=== PATIENT | female | born 1985 | race Asian ===

== ENCOUNTER 2016-11-07 11:30 | Emergency (ER) | payer OTHER ==
[2016-11-07] MEDS ORDERED: KETOROLAC 60 MG/2 ML VIAL IM STA (12:37)
[2016-11-07] MEDS ORDERED: HYDROcod/ACETAM 5/325 MG TABLET PO STA (12:37)
[2016-11-07] MEDS ORDERED: KETOROLAC 60 MG/2 ML VIAL ONE (12:40)
[2016-11-07] MEDS ORDERED: HYDROcod/ACETAM 5/325 MG TABLET ONE (12:40)
[2016-11-07 12:50] LABS: BILIRUBIN,URINE NEGATIVE (NEGATIVE); PH,URINE 6.5 PH (5.0-7.5)
[2016-11-07 12:54] LABS: UA CHARGE (STRIP ONLY) YES; UR CULTURE IF IND NOT INDICATED
--- NOTE | 2016-11-07 13:14 | ED Physician Documentation ---
History of Present Illness - Stated complaint Stated Complaint: LOW BACK PAIN - Chief complaint Chief Complaint: Back Pain - History obtained from History obtained from: Patient - Additonal information Additional information: Patient is a 31-year-old female who is otherwise healthy. She does have a history of bipolar disorder but is not currently taking medications. From a surgical standpoint she has had a and hysterectomy as well as appendectomy. She is here with a complaint of back pain. The back pain is centrally located and does not radiate. It is worse with movement and better with rest. She has not had any fever or chills. There is no complaint of nausea vomiting, constipation, or diarrhea. She denies any recent or remote injury. There is no numbness tingling or weakness in her extremities. Review of systems: For pertinent positive and negatives in the review of systems please see history of present illness. Otherwise all other systems have been reviewed and are negative. Dragon disclaimer: Parts of this medical record were created using voice recognition technology. Because of the inherent limitations of this system occasional same sounding word substitutions do occur and persist despite proofreading. Please read the document for context. Review of Systems Ten Systems: 10 systems reviewed and negative Constitutional: denies: Fever, Chills, Myalgias Cardiac: denies: Chest pain / pressure Respiratory: denies: Dyspnea, Cough GI: denies: Abdominal Pain, Abdominal Swelling, Nausea, Vomiting, Constipation, Diarrhea : denies: Dysuria Musculoskeletal: reports: Back pain. 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, Hysterectomy - Present Medications Home Medications: Ambulatory Orders Medication Instructions Recorded Confirmed Ibuprofen 600 mg PO TID PRN #14 tablet 11/07/16 Tramadol HCl 50 mg PO Q8HR PRN #14 tablet 11/07/16 - Allergies Allergies/Adverse Reactions: Allergies Allergy/AdvReac Type Severity Reaction Status Date / Time morphine Allergy Respiratory Verified 11/07/16 11:41 - Social History Does the pt smoke?: No Smoking Status: Never smoker Does the pt drink ETOH?: Yes Does the pt have substance abuse?: No PD ED PE NORMAL - General General: Alert and oriented X 3, No acute distress, Well developed/nourished, Other (Well-appearing young female sitting stiffly on the bed) - HEENT HEENT: Atraumatic, PERRL - Cardiac Cardiac: RRR, No murmur - Respiratory Respiratory: No respiratory distress, Clear bilaterally - Abdomen Abdomen: Normal bowel sounds, Soft, Non tender, Non distended - Back Back: No CVA TTP, No spinal TTP, Other (Fairly diffuse muscular tenderness in the upper lumbar area approximately T1-T2 area) - Derm Derm: Normal color, Warm and dry - Extremities Extremities: No deformity, No tenderness to palpate, No calf tenderness / cord, Other - Neuro Neuro: Alert and oriented X 3, No motor deficit, No sensory deficit Results - Vitals Vitals: Vital Signs - 24 hr 11/07/16 11:35 Temperature 36.5 C Heart Rate 98 Respiratory 18 Rate Blood Pressure 112/73 O2 Saturation 96 Oxygen O2 Source Room air - Labs Labs: Laboratory Tests 11/07/16 12:26 Urine Color YELLOW Urine Clarity CLEAR Urine pH 6.5 Ur Specific [place] 1.010 Urine Protein NEGATIVE Urine Glucose (UA) NEGATIVE Urine Ketones NEGATIVE Urine Occult Blood TRACE-INTA Urine Nitrite NEGATIVE Urine Bilirubin NEGATIVE Urine Urobilinogen 0.2 (NORMAL) Ur Leukocyte Esterase NEGATIVE Ur Microscopic Review NOT INDICATED Urine Culture Comments NOT INDICATED PD MEDICAL DECISION MAKING - ED course Complexity details: reviewed old records, reviewed results, re-evaluated patient , considered differential, d/w patient ED course: Patient is a healthy young female who presents with atraumatic low back pain. There is no radiation of the pain. On examination she has mild diffuse tenderness in the paraspinal muscles without focality. Neurologic and strength testing in the lower extremities is normal. Urinalysis is negative and she has had hysterectomy. She was given Toradol and Vicodin here and feels better. At this point in time will discharge at home with appropriate follow-up. Disposition: To home Clinical impression: 1. Lumbar back pain and strain-suspect muscular etiology Departure - Departure Disposition: Home, Self Care Clinical Impression: Lumbar back pain Condition: Good Instructions: ED Back Care Tips, ED Spasm Back No Trauma, ED Sprain Strain Lumbar Follow-Up: [facility] [Provider Group] Prescriptions: Tramadol HCl 50 mg PO Q8HR PRN #14 tablet PRN Reason: Pain Ibuprofen 600 mg PO TID PRN #14 tablet PRN Reason: Pain
[2016-11-07 13:40] VITALS: BP 121/71
== END 2016-11-07 13:35 | disposition home or self-care (01) ==
LOC: ED 11:30
DX: M54.5 Low back pain (principal)
CPT/HCPCS: 81003; 96372; 99283; A9270; 81001; 81025; 87086

== ENCOUNTER 2020-04-13 14:13 | Emergency (ER) | payer OTHER ==
--- NOTE | 2020-04-13 15:59 | ED Physician Documentation ---
History of Present Illness - Stated complaint Stated Complaint: SORE THROAT/COUGHING - Chief complaint Chief Complaint: Resp - History obtained from History obtained from: Patient - History of Present Illness Timing: Prior to arrival - Additonal information Additional information: 34-year-old female presents to the emergency department with 4 to 5 days of fatigue, chills, cough and shortness of breath. She also has a sore throat and is concerned she could have strep. She recently moved to [facility] 3 weeks ago from [place] and is staying with her family here. She does have a history of dystonia. She states that this causes her constant muscle pain but this feels different. She denies knowing that she has fevers but endorses chills especially at night. No vomiting or abdominal pain. No dysuria urgency or frequency. Review of Systems Constitutional: reports: Chills, Myalgias, Fatigue. denies: Fever Eyes: reports: Reviewed and negative Ears: reports: Reviewed and negative Nose: reports: Reviewed and negative Throat: reports: Sore throat. denies: Swollen tonsils, Swallowed foreign body Cardiac: denies: Chest pain / pressure, Palpitations Respiratory: reports: Dyspnea, Cough. 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 - Present Medications Home Medications: Ambulatory Orders Medication Instructions Recorded Confirmed Ibuprofen 600 mg PO TID PRN #14 tablet 11/07/16 04/13/20 Acyclovir [Zovirax] 1 tab PO PRN PRN 04/13/20 04/13/20 Doxepin [SINEquan] 50 mg PO DAILY 04/13/20 04/13/20 Gabapentin [Neurontin] 1 tab PO TID 04/13/20 04/13/20 diazePAM [Valium] 1 tab PO TID 04/13/20 04/13/20 hydrOXYzine HCL [Hydroxyzine HCl] 1 tab PO TID PRN 04/13/20 04/13/20 methIMAzole [Methimazole] 5 mg PO DAILY 04/13/20 04/13/20 - Allergies Allergies/Adverse Reactions: Allergies Allergy/AdvReac Type Severity Reaction Status Date / Time morphine Allergy Respiratory Verified 04/13/20 14:41 - Social History Does the pt smoke?: No Smoking Status: Never smoker Does the pt drink ETOH?: Yes Does the pt have substance abuse?: No PD ED PE EXPANDED - General General: Alert, No acute distress, Well developed/nourished - HEENT HEENT: PERRL, EOMI, Moist mucous membranes, Pharyngeal erythema (Minor posterior oropharynx erythema without tonsillar exudate or tonsillar swelling. Uvula is midline. No soft palate swelling or asymmetry.) - Neck Neck: Supple w/out meningeal sx, No tenderness. No: Adenopathy - Cardiac Cardiac: Regular Rate, Regular Rhythm, Regularly irregular, Radial strong equal, Pedal strong equal, Cap refill < 2 sec - Respiratory Respiratory: Clear to ausultation dom. No: Distress, Labored, Gasping, Accessory mm use, Retractions - Abdomen Abdomen: Normal Bowel sounds. No: Tender to palpation - Extremities Extremities: Normal Results - Vitals Vitals: Vital Signs - 24 hr 04/13/20 14:35 Temperature 36.5 C Heart Rate 89 Respiratory 16 Rate Blood Pressure 121/90 H O2 Saturation 100 Oxygen O2 Source Room air PD MEDICAL DECISION MAKING - ED course ED course: 34-year-old female presents emergency department with multiple days of fatigue body aches chills and sore throat. A rapid respiratory PCR panel is pending. She has unremarkable cardiopulmonary auscultation and vitals are within normal limits without hypoxia. Imaging deferred today. Patient will be sent home with a recommendation to remain quarantine until the Covid results are known. She is to continue routine over the counter analgesics with Tylenol or ibuprofen as well as hydration. Departure - Departure Disposition: 01 Home, Self Care Clinical Impression: Viral illness, Sore throat Condition: Stable Record reviewed to determine appropriate education?: Yes Instructions: ED Viral Syndrome Ch Comments: You have a Covid test pending. You need to self quarantine until the result is done and negative. Do not leave your house. Do not get near anybody. The results should be done in 48 to 72 hours. We will call with a positive result, the fastest way to get a negative result for confirmation though is to go to the hospital website at [email or web address], click on the my [email or web address] tab and sign up for the patient portal. If any friends or family get sick and would like to have a Covid test done, but do not have signs or symptoms that would necessitate being hospitalized, we encourage testing through our coronavirus swabbing station, call [phone] to schedule an appointment. We will only notify you if the testing is positive. I do recommend that you continue to take Tylenol or ibuprofen for body aches. Stay well-hydrated drinking fluids frequently and get plenty of rest. Return to the emergency department if you have fevers, difficulty breathing suddenly severe abdominal or chest pain.
[2020-04-13 16:49] LABS: C. PNEUMONIAE- RESP PCR PANEL NOT DETECTED
[2020-04-13 16:54] VITALS: BP 119/79
== END 2020-04-13 16:53 | disposition home or self-care (01) ==
LOC: ED 14:13
DX: B34.9 Viral infection, unspecified (principal); J02.9 Acute pharyngitis, unspecified; Z20.828 Contact with and (suspected) exposure to other viral communicable diseases
CPT/HCPCS: 0202U; 99282; 99283

== ENCOUNTER 2020-05-24 08:00 | Outpatient (CLI) | payer OTHER ==
[2020-05-24 11:52] LABS: BASOPHILS # (AUTO) 0.1 10^3/uL (0.0-0.1); BASOPHILS % (AUTO) 0.6 %; EOSINOPHILS # (AUTO) 0.3 10^3/uL (0.0-0.7); EOSINOPHILS % (AUTO) 2.9 %; HGB - HEMOGLOBIN 14.8 g/dL (12.0-16.0); LYMPHOCYTES # (AUTO) 3.1 10^3/uL (1.5-3.5); LYMPHOCYTES % (AUTO) 31.9 %; MEAN CORPUSCULAR HEMOGLOBIN 30.1 pg (27.0-31.0); MEAN CORPUSCULAR HGB CONC 33.3 g/dL (32.0-36.0); MEAN CORPUSCULAR VOLUME 90.4 fL (81.0-99.0); MEAN PLATELET VOLUME 10.7 fL (7.9-10.8); MONOCYTES # (AUTO) 0.7 10^3/uL (0.0-1.0); MONOCYTES % (AUTO) 7.3 %; NEUTROPHILS # (AUTO) 5.5 10^3/uL (1.5-6.6); NEUTROPHILS % (AUTO) 56.8 %; PLT - PLATELET COUNT 242 10^3/uL (130-450); RED BLOOD COUNT 4.92 10^6/uL (4.20-5.40); RED CELL DISTRIBUTION WIDTH 12.5 % (12.0-15.0); WHITE BLOOD COUNT 9.7 x10^3/uL (4.8-10.8)
[2020-05-24 12:00] LABS: ALBUMIN 4.6 g/dL (3.2-5.5); ALBUMIN/GLOBULIN RATIO 1.4 (1.0-2.2); ALKALINE PHOSPHATASE 68 IU/L (42-121); ALT ALANINE AMINOTRANSFERASE 41 IU/L (10-60); AST ASPARTATE AMINOTRANSFERASE 41 IU/L (10-42); BILIRUBIN,TOTAL 0.5 mg/dL (0.2-1.0); BUN - BLOOD UREA NITROGEN 13 mg/dL (6-20); CALCIUM 9.9 mg/dL (8.5-10.3); CARBON DIOXIDE - CO2 28 mmol/L (21-32); CHLORIDE 100 mmol/L (101-111); CHOL/HDL RATIO 3.1 (<4.4); CHOLESTEROL 247 mg/dL; CREATININE 0.8 mg/dL (0.4-1.0); GLUCOSE 91 mg/dL (70-100); HDL CHOLESTEROL 80 mg/dL; LDL CHOLESTEROL,CALCULATED 147 mg/dL; LDL/HDL RATIO 1.8 (<4.4); VLDL CHOLESTEROL 20 mg/dL
[2020-05-24 12:07] LABS: T4 (THYROXINE) 8.29 ug/dL (6.09-12.23)
[2020-05-24 12:10] LABS: THYROID STIMULATING HORMONE 0.7 uIU/mL (0.34-5.60)
[2020-05-24 12:17] LABS: TOTAL T3 1.66 ng/mL (0.87-1.78)
== END 2020-05-24 23:59 | disposition home or self-care (01) ==
LOC: LAB.WCP 08:00
PROVIDERS: ATTEND Registered Nurse
DX: G43.909 Migraine, unspecified, not intractable, without status migrainosus (principal); E06.9 Thyroiditis, unspecified; G24.3 Spasmodic torticollis; F32.9 Major depressive disorder, single episode, unspecified; F41.9 Anxiety disorder, unspecified
CPT/HCPCS: 36415; 80053; 80061; 83721; 84436; 84443; 84480; 85025

== ENCOUNTER 2020-06-06 08:00 | Outpatient (CLI) | payer OTHER | END 2020-06-06 23:59 | disposition home or self-care (01) | LOC: LAB.N 08:00 | PROVIDERS: ATTEND Family Medicine | DX: J06.9 Acute upper respiratory infection, unspecified (principal); Z20.822 Contact with and (suspected) exposure to COVID-19 | CPT/HCPCS: 87070; 87275; 87276 ==

== ENCOUNTER 2020-08-08 12:28 | Outpatient (CLI) | payer OTHER | END 2020-08-08 12:29 | disposition critical access hospital (66) | LOC: EMS 12:28 | DX: R10.30 Lower abdominal pain, unspecified (principal) | CPT/HCPCS: A0425; A0427 ==

== ENCOUNTER 2020-08-08 12:45 | Emergency (ER) | payer OTHER ==
--- NOTE | 2020-08-08 12:56 | ED Physician Documentation ---
PD HPI ABD PAIN - Stated complaint Stated Complaint: ABD PX - Chief complaint Chief Complaint: Abd Pain - History obtained from History obtained from: Patient, EMS - History of Present Illness Timing - onset: How many hours ago (The patient states she had onset of lower abdominal crampy pain about an hour prior to presentation. It increased rather quickly over about 30 minutes. She did try having a bowel movement but did not have anything out. She did not feel an urgency per se but thought it might help. pain lower abd.) Timing - details: Abrupt onset (onset to severe over about 30 minutes.) Quality: Cramping, Aching, Pain. No: Sharp Location: RLQ, Suprapubic, LLQ Radiation: No: Chest, Lower back Improved by: No: Laying still Worsened by: Moving, Palpation, Other (stretched out feels worse; bumps in road enroute hurt more.). No: Breathing Associated symptoms: Nausea. No: Fever, Vomiting, Diarrhea (Diarrhea per se but states she had had soft bowel movements over the last 3 or 4 days without any noted blood nor mucus.), Constipation, Melena, Hematochezia, Dysuria, Loss of appetite Similar symptoms before: Has not had sx before Recently seen: Not recently seen Review of Systems Constitutional: denies: Fever, Chills, Myalgias Nose: denies: Rhinorrhea / runny nose, Congestion Throat: denies: Sore throat Cardiac: denies: Chest pain / pressure Respiratory: denies: Dyspnea, Cough GI: reports: Abdominal Pain (just onset the past hour.), Nausea. denies: Vomiting, Constipation, Diarrhea : reports: Hysterectomy. 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 - Present Medications Home Medications: Ambulatory Orders Medication Instructions Recorded Confirmed Doxepin [SINEquan] 50 mg PO DAILY 04/13/20 08/08/20 Gabapentin [Neurontin] 1 tab PO TID 04/13/20 08/08/20 diazePAM [Valium] 1 tab PO TID 04/13/20 08/08/20 hydrOXYzine HCL [Hydroxyzine HCl] 1 tab PO TID PRN 04/13/20 04/13/20 methIMAzole [Methimazole] 5 mg PO DAILY 04/13/20 08/08/20 DULoxetine [Cymbalta] 20 mg PO DAILY 08/08/20 08/08/20 Naproxen [EC-Naproxen] 500 mg PO BID #20 08/08/20 Ondansetron Odt [Zofran] 4 mg TL Q6H PRN #10 tablet 08/08/20 - Allergies Allergies/Adverse Reactions: Allergies Allergy/AdvReac Type Severity Reaction Status Date / Time morphine Allergy Respiratory Verified 08/08/20 12:54 - Social History Does the pt smoke?: No Smoking Status: Never smoker Does the pt drink ETOH?: Yes Does the pt have substance abuse?: No PD ED PE NORMAL - Vitals Vital signs reviewed: Yes - General General: Alert and oriented X 3, Well developed/nourished, Other (Appears significantly uncomfortable with her knees drawn up and holding her lower abdomen.) - HEENT HEENT: Pharynx benign - Neck Neck: Supple, no meningeal sign, No adenopathy - Cardiac Cardiac: RRR, No murmur - Respiratory Respiratory: Clear bilaterally - Abdomen Abdomen: Soft, No organomegaly, Other (Markedly tender to percussion and palpation in the suprapubic and lower abdomen both left and right. Upper abdomen is nontender. There is no referred tenderness from the upper abdomen to the lower. No CVA tenderness.). No: Normal bowel sounds (Creased bowel sounds noted lower.) - Female Female : Deferred - Rectal Rectal: Deferred - Back Back: No CVA TTP - Derm Derm: Normal color, Warm and dry - Extremities Extremities: Normal ROM s pain, No edema, No calf tenderness / cord - Neuro Neuro: Alert and oriented X 3, No motor deficit, Normal speech Eye Opening: Spontaneous Motor: Obeys Commands Verbal: Oriented GCS Score: 15 Results - Vitals Vitals: Vital Signs - 24 hr 08/08/20 08/08/20 08/08/20 12:49 12:54 15:11 Temperature 36.6 C Heart Rate 91 92 97 Respiratory 14 16 23 Rate Blood Pressure 122/86 H 119/92 H 129/62 O2 Saturation 98 97 98 08/08/20 08/08/20 17:01 19:02 Temperature 36.4 C L Heart Rate 79 83 Respiratory 18 16 Rate Blood Pressure 108/62 126/83 H O2 Saturation 99 100 Oxygen O2 Source Room air - Labs Labs: Laboratory Tests 08/08/20 08/08/20 08/08/20 13:37 13:37 13:40 WBC 9.2 RBC 4.68 Hgb 13.9 Hct 41.8 MCV 89.3 MCH 29.7 MCHC 33.3 RDW 12.3 Plt Count 214 MPV 10.3 Neut # (Auto) 5.0 Lymph # (Auto) 3.4 [place] # (Auto) 0.5 Eos # (Auto) 0.2 Baso # (Auto) 0.1 Absolute Nucleated RBC 0.00 Nucleated RBC % 0.0 Sodium 137 Potassium 3.9 Chloride 104 Carbon Dioxide 22 Anion Gap 11.0 BUN 9 Creatinine 0.8 Estimated GFR (MDRD) 82 L Glucose 99 Calcium 9.6 Total Bilirubin 0.4 AST 31 ALT 24 Alkaline Phosphatase 60 Total Protein 7.9 Albumin 4.8 Globulin 3.1 Albumin/Globulin Ratio 1.5 Lipase 35 Urine Color YELLOW Urine Clarity CLEAR Urine pH 6.5 Ur Specific [place] 1.015 Urine Protein NEGATIVE Urine Glucose (UA) NEGATIVE Urine Ketones NEGATIVE Urine Occult Blood NEGATIVE Urine Nitrite NEGATIVE Urine Bilirubin NEGATIVE Urine Urobilinogen 0.2 (NORMAL) Ur Leukocyte Esterase NEGATIVE Ur Microscopic Review NOT INDICATED Urine Culture Comments NOT INDICATED - Rads (name of study) abd/pelvic CT Radiology: Prelim report reviewed (right ovarian cyst with trace free fluid. Else negative for acute process. ), See rad report pelvic U/S Radiology: Prelim report reviewed (normal flow to both ovaries. 2 cm cyst right ovary hemorrhagic. No free fluid. ) PD MEDICAL DECISION MAKING - ED course Complexity details: re-evaluated patient (persistent moderate pain. She got incredible itchiness with Dilaudid. She had gotten fentanyl enroute and it made her feel lightheaded/nausea. She did not want repeat dose. Suggested Keatime and will try it, but it just made her feel dizzy and no pain relief. I do not have other options right now.), considered differential (Abrupt onset and worsening of lower abdominal pain. Post hysterectomy but still has ovaries. Consider ovarian rupture of a cyst, torsion, lower bowel obstruction given prior surgeries, kidney stone though not really flank pain. Also acute perforation of diverticula or such.), d/w patient ED course: Hard to make pain well improved due to side effects of many meds. Offered subsequently IV lidocaine (works on various pain issues, particularly kidney stones), but she said she was "done trying things and just wants to go home." Departure - Departure Disposition: Home, Self Care Clinical Impression: Lower abdominal pain, Hemorrhagic ovarian cyst Condition: Stable Record reviewed to determine appropriate education?: Yes Instructions: ED Cyst Ovarian Follow-Up: Analia Sequeira ARNP [Primary Care Provider] - Prescriptions: Naproxen [EC-Naproxen] 500 mg PO BID #20 Ondansetron Odt [Zofran] 4 mg TL Q6H PRN #10 tablet PRN Reason: Nausea / Vomiting Comments: Your pain seems to be coming from bleeding within a ovarian cyst on the right. There is no signs of internal bleeding freely within the pelvis. I would anticipate improvement in the pain over the next couple of days with anti- inflammatories and adding Tylenol if needed. Other medications seem to cause you itching so we will have to stay with anti- inflammatories and Tylenol. Add ondansetron if needed for nausea. Recheck if not improving well over the next day or 2 return if worsening. Discharge Date/Time: 08/08/20 19:34
--- OUTSIDE RECORDS SUMMARY | 2020-08-08 13:20 | EXTERNAL MEDICAL SUMMARY RPT | Continuity of Care Document ---
:1985 Demographics Phone Unavailable Preferred Language Unknown Marital Status Unknown Shinto Affiliation Unknown Race Unknown Ethnic Group Unknown Author Organization [facility] Address [address] [phone] Phone Social History date description facility [phone]
[2020-08-08] MEDS ORDERED: ONDANSETRON 4 MG/2 ML VIAL IVP STA (13:23)
[2020-08-08] MEDS ORDERED: KETOROLAC 15 MG/ML VIAL IVP STA (13:23)
[2020-08-08] MEDS ORDERED: HYDROmorphone 1 MG/ML CARPUJECT IVP STA (13:23)
[2020-08-08] MEDS ORDERED: diphenhydrAMINE INJ 50 MG/ML VIAL IVP STA ×4 (13:24→15:24)
[2020-08-08] MEDS ORDERED: SODIUM CHLORIDE 0.9% 1,000 ML IV STA (13:25)
[2020-08-08] MEDS ORDERED: IOPAMIDOL-300 100 ML VIAL ONE (13:34)
[2020-08-08 13:48] LABS: BASOPHILS # (AUTO) 0.1 10^3/uL (0.0-0.1); BASOPHILS % (AUTO) 0.5 %; EOSINOPHILS # (AUTO) 0.2 10^3/uL (0.0-0.7); EOSINOPHILS % (AUTO) 2.2 %; HCT - HEMATOCRIT 41.8 % (37.0-47.0); HGB - HEMOGLOBIN 13.9 g/dL (12.0-16.0); LYMPHOCYTES # (AUTO) 3.4 10^3/uL (1.5-3.5); LYMPHOCYTES % (AUTO) 37.3 %; MEAN CORPUSCULAR HEMOGLOBIN 29.7 pg (27.0-31.0); MEAN CORPUSCULAR HGB CONC 33.3 g/dL (32.0-36.0); MEAN CORPUSCULAR VOLUME 89.3 fL (81.0-99.0); MEAN PLATELET VOLUME 10.3 fL (7.9-10.8); MONOCYTES # (AUTO) 0.5 10^3/uL (0.0-1.0); MONOCYTES % (AUTO) 5.7 %; PLT - PLATELET COUNT 214 10^3/uL (130-450); RED BLOOD COUNT 4.68 10^6/uL (4.20-5.40); RED CELL DISTRIBUTION WIDTH 12.3 % (12.0-15.0); WHITE BLOOD COUNT 9.2 x10^3/uL (4.8-10.8)
[2020-08-08 13:54] LABS: BILIRUBIN,URINE NEGATIVE (NEGATIVE); GLUCOSE, URINE (UA) NEGATIVE (NEGATIVE); KETONES,URINE (UA) NEGATIVE (NEGATIVE); LEUKOCYTE ESTERASE, URINE NEGATIVE (NEGATIVE); NITRITE,URINE NEGATIVE (NEGATIVE); OCCULT BLOOD,URINE NEGATIVE (NEGATIVE); PH,URINE 6.5 PH (5.0-7.5); PROTEIN,URINE NEGATIVE (NEGATIVE); UROBILINOGEN,URINE 0.2 (NORMAL) E.U./dL (NORMAL)
[2020-08-08 13:58] LABS: CLARITY,URINE CLEAR (CLEAR)
[2020-08-08 14:03] LABS: ALBUMIN 4.8 g/dL (3.2-5.5); ALBUMIN/GLOBULIN RATIO 1.5 (1.0-2.2); BILIRUBIN,TOTAL 0.4 mg/dL (0.2-1.0); CALCIUM 9.6 mg/dL (8.5-10.3); CREATININE 0.8 mg/dL (0.4-1.0); POTASSIUM 3.9 mmol/L (3.5-5.0); TOTAL PROTEIN 7.9 g/dL (6.7-8.2)
[2020-08-08] MEDS ORDERED: IOPAMIDOL-300 100 ML VIAL IVP ONE (14:40)
--- NOTE | 2020-08-08 15:00 | CT Report ---
PROCEDURE: Abdomen/Pelvis W INDICATIONS: LLQ Abdominal pain, diverticulitis suspected CONTRAST: IV CONTRAST: Isovue 300 ml: 100 PO CONTRAST: *NO PO CONTRAST TECHNIQUE: After the administration of intravenous contrast, 5 mm thick sections acquired from the diaphragms to the symphysis. 5 mm thick coronal and sagittal reformats were acquired. For radiation dose reducti on, the following was used: automated exposure control, adjustment of mA and/or kV according to hans ent size. COMPARISON: None. FINDINGS: Image quality: Excellent. ABDOMEN: Lung bases: Lung bases are clear. Heart size is normal. Solid organs: Liver and spleen are normal in size and enhancement. Gallbladder is unremarkable. Bi liary system is non dilated. Pancreas enhances normally. No adrenal nodules. Kidneys demonstrate n ormal size and enhancement, without hydronephrosis. Peritoneum and bowel: Bowel loops demonstrate normal wall thickness and caliber. No free fluid or a ir. No evidence of acute diverticulitis. Remote appendectomy. Nodes and vessels: No retroperitoneal or mesenteric adenopathy by size criteria. Aorta and inferior vena cava are normal in size. Miscellaneous: No ventral hernias. PELVIS: Genitourinary: Bladder wall thickness is normal. Miscellaneous: No inguinal hernias or adenopathy. Collapsed right ovarian cyst. Uterus is surgically absent. Bones: No suspicious bony lesions. No vertebral body compression fractures. IMPRESSION: 1. Collapsed right ovarian cyst. 2. No evidence of acute diverticulitis. 3. No findings which explain acute left lower quadrant abdominal pain. Reviewed by: Daniel Carmichael MD on 08/08/2020 2:59 PM PDT Approved by: Daniel Carmichael MD on 08/08/2020 2:59 PM PDT Station ID: [id number]
[2020-08-08] MEDS ORDERED: CETIRIZINE 10 MG TABLET PO STA (15:25)
[2020-08-08] MEDS ORDERED: ACETAMINOPHEN 1,000 MG/100 ML 100 ML IV ONE (15:32)
[2020-08-08] MEDS ORDERED: fentaNYL 100 MCG/2 ML VIAL IVP STA (17:11)
--- NOTE | 2020-08-08 17:14 | Ultrasound Report ---
PROCEDURE: Pelvic w/Transvag+Doppler Ltd INDICATIONS: pelvic pain; ? collapsing cyst on CT TECHNIQUE: Real-time scanning was performed of the pelvic organs, with image documentation. Additional endovagi nal scanning was necessary due to incomplete visualization of the adnexal and endometrial structures by transabdominal scanning. COMPARISON: CT of abdomen and pelvis from the same day. FINDINGS: No pathologic free abdominal or pelvic fluid. Uterus: Uterus is surgically absent. No gross abnormality is seen in the vaginal cuff region. Ovaries: Right ovary measures 3.1 x 2.8 x 2.7 cm in size with a volume of 12.0 mL. Complex cyst ness ures 1.9 x 2.1 x 2 cm in size is seen in right ovary without internal vascularity. 1 cm simple cyst i s seen in right ovary. Left ovary measures 2.6 x 0.9 x 1.9 cm in size with a volume of 2.3 mL. Less than 12 follicles are se en in left ovary. No solid-appearing ovarian lesion. Normal arterial and venous flow is seen in bilat eral ovaries on color Doppler images. IMPRESSION: 1. No evidence of ovarian torsion. No gross solid-appearing ovarian lesion. 2. 1.9 x 2.1 x 2 cm complex/hemorrhagic cyst seen in right ovary which was also noted on CT study. No rmal-appearing left ovary. 3. Prior hysterectomy with normal-appearing vaginal cuff region. Reviewed by: Santiago Armstrong MD on 08/08/2020 4:13 PM AKCHRISTOPHER Approved by: Santiago Armstrong MD on 08/08/2020 4:13 PM AKDT Station ID: [id number]
[2020-08-08] MEDS ORDERED: oxyCODONE 5 MG TABLET PO STA (17:22)
[2020-08-08] MEDS ORDERED: IBUPROFEN 600 MG TABLET PO STA (17:22)
[2020-08-08] MEDS ORDERED: KETAMINE 25 MG in SODIUM CHLORIDE 0.9% 100ML 100 ML IV STA (17:45)
[2020-08-08 19:03] VITALS: BP 126/83
== END 2020-08-08 19:34 | disposition home or self-care (01) ==
LOC: EDUNIT# → ED 12:45
DX: N83.201 Unspecified ovarian cyst, right side (principal); R42 Dizziness and giddiness; R11.0 Nausea; L29.9 Pruritus, unspecified; T40.2X5A Adverse effect of other opioids, initial encounter; T40.415A Adverse effect of fentanyl or fentanyl analogs, initial encounter
CPT/HCPCS: 36415; 74177; 76830; 76856; 80053; 81003; 83690; 85025; 93976; 96365; 96366; 96367; 96375; 96376; 99284; A9270; J0131; J1170; J1200; Q9967; 81001; 87086

== ENCOUNTER 2020-09-19 12:35 | Emergency (ER) | payer OTHER ==
--- OUTSIDE RECORDS SUMMARY | 2020-09-19 12:39 | EXTERNAL MEDICAL SUMMARY RPT | Continuity of Care Document ---
:1985 Demographics Phone Unavailable Preferred Language Unknown Marital Status Unknown Yazidi Affiliation Unknown Race Unknown Ethnic Group Unknown Author Organization [facility] Address [address] [phone] Phone Problems date description facility [id number] chest pain / sob [facility] [id number] Shortness of Breath [facility]
[2020-09-19 13:16] LABS: BASOPHILS % (AUTO) 0.3 %; EOSINOPHILS % (AUTO) 0.1 %; HCT - HEMATOCRIT 43.2 % (37.0-47.0); HGB - HEMOGLOBIN 14.8 g/dL (12.0-16.0); LYMPHOCYTES # (AUTO) 1.8 10^3/uL (1.5-3.5); MEAN CORPUSCULAR HEMOGLOBIN 30.6 pg (27.0-31.0); MEAN CORPUSCULAR HGB CONC 34.3 g/dL (32.0-36.0); MEAN CORPUSCULAR VOLUME 89.3 fL (81.0-99.0); MEAN PLATELET VOLUME 10.3 fL (7.9-10.8); MONOCYTES # (AUTO) 0.6 10^3/uL (0.0-1.0); MONOCYTES % (AUTO) 5.5 %; NEUTROPHILS # (AUTO) 8.3 10^3/uL (1.5-6.6); NEUTROPHILS % (AUTO) 76.7 %; PLT - PLATELET COUNT 251 10^3/uL (130-450); RED BLOOD COUNT 4.84 10^6/uL (4.20-5.40); RED CELL DISTRIBUTION WIDTH 11.9 % (12.0-15.0); WHITE BLOOD COUNT 10.8 x10^3/uL (4.8-10.8)
[2020-09-19 13:29] LABS: ALBUMIN 5.1 g/dL (3.2-5.5); ALBUMIN/GLOBULIN RATIO 1.5 (1.0-2.2); BILIRUBIN,TOTAL 0.9 mg/dL (0.2-1.0); CALCIUM 9.4 mg/dL (8.5-10.3); CREATININE 0.7 mg/dL (0.4-1.0); POTASSIUM 3.7 mmol/L (3.5-5.0); TOTAL PROTEIN 8.4 g/dL (6.7-8.2)
--- OUTSIDE RECORDS SUMMARY | 2020-09-19 13:43 | EXTERNAL MEDICAL SUMMARY RPT | Continuity of Care Document ---
:1985 Demographics Phone Unavailable Preferred Language Unknown Marital Status Unknown Judaism Affiliation Unknown Race Unknown Ethnic Group Unknown Author Organization [facility] Address [address] [phone] Phone Problems date description facility [id number] chest pain / sob [facility] [id number] Shortness of Breath [facility]
[2020-09-19 14:31] LABS: BILIRUBIN,URINE NEGATIVE (NEGATIVE); GLUCOSE, URINE (UA) NEGATIVE (NEGATIVE); KETONES,URINE (UA) >=80 mg/dL (NEGATIVE); LEUKOCYTE ESTERASE, URINE NEGATIVE (NEGATIVE); NITRITE,URINE NEGATIVE (NEGATIVE); OCCULT BLOOD,URINE TRACE-LYSE (NEGATIVE); PROTEIN,URINE NEGATIVE (NEGATIVE); UROBILINOGEN,URINE 0.2 (NORMAL) E.U./dL (NORMAL)
[2020-09-19 14:32] LABS: CLARITY,URINE CLEAR (CLEAR); HCG UR QUAL NEGATIVE
[2020-09-19] MEDS ORDERED: PANTOPRAZOLE 40 MG VIAL IVP STA (14:40)
[2020-09-19] MEDS ORDERED: PROCHLORPERAZINE 10 MG/2 ML VIAL IVP STA (14:40)
--- NOTE | 2020-09-19 14:43 | ED Physician Documentation ---
History of Present Illness - Stated complaint Stated Complaint: VOMITING,WEAKNESS - Chief complaint Chief Complaint: Abd Pain - Additonal information Additional information: 35-year-old female presents to the emergency department for evaluation of 2 days uncontrolled vomiting and diarrhea. She reports she has been unable to keep anything down and as such now has significant epigastric pain. She feels weak and dehydrated. No fevers. no melena or hematochezia. no hemataemsis. Patient denies sick contacts or similar illness and others at home however she did recently returned from a trip to [place]. Past medical history most significant for hyperthyroidism as well as dystonia. Past medical history includes hysterectomy secondary to fibroids, previous appendectomy. Medications: Methocarbamol, Valium, sumatriptan, acyclovir, gabapentin, methimazole, duloxetine. Review of Systems Constitutional: denies: Fever, Chills Eyes: reports: Reviewed and negative Nose: reports: Reviewed and negative Throat: reports: Reviewed and negative Cardiac: reports: Reviewed and negative Respiratory: reports: Reviewed and negative GI: reports: Abdominal Pain, Nausea, Vomiting. 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, Hysterectomy - Present Medications Home Medications: Ambulatory Orders Medication Instructions Recorded Confirmed diazePAM [Valium] 1 tab PO TID 04/13/20 09/19/20 methIMAzole [Methimazole] 5 mg PO DAILY 04/13/20 09/19/20 DULoxetine [Cymbalta] 20 mg PO DAILY 08/08/20 09/19/20 Acyclovir 800 mg PO DAILY PRN 09/19/20 09/19/20 Gabapentin [Neurontin] 300 mg PO TID 09/19/20 09/19/20 Ondansetron Odt [Zofran] 4 mg TL Q6H PRN #10 tablet 09/19/20 Sumatriptan Succinate [Imitrex] 100 mg PO DAILY PRN 09/19/20 09/19/20 methocarbamoL [Methocarbamol] 500 mg PO TID 09/19/20 09/19/20 - Allergies Allergies/Adverse Reactions: Allergies Allergy/AdvReac Type Severity Reaction Status Date / Time morphine Allergy Respiratory Verified 09/19/20 12:52 - Social History Does the pt smoke?: No Smoking Status: Never smoker Does the pt drink ETOH?: Yes Does the pt have substance abuse?: No - Immunizations Immunizations are current?: Yes PD ED PE EXPANDED - General General: Alert, In Pain - Cardiac Cardiac: Regular Rate, Radial strong equal, Pedal strong equal, Cap refill < 2 sec - Respiratory Respiratory: Clear to ausultation dom. No: Distress, Labored - Abdomen Abdomen: Normal Bowel sounds, Tender to palpation, Epigastric (Epigastric tenderness without guarding or rebound. Negative McBurney's. Negative Richardson's.) - Derm Derm: Normal color, Warm and dry. No: Rash, Petecchiae, Purpura - Extremities Extremities: Normal. No: Deformity, Tenderness - Neuro Neuro: Alert and Oriented X 3, CNII-XII intact - GCS Eye Opening: Spontaneous Motor: Obeys Commands Verbal: Oriented Total: 15 Results - Vitals Vitals: Vital Signs - 24 hr 09/19/20 09/19/20 09/19/20 12:52 14:28 16:11 Temperature 36.8 C 37.4 C Heart Rate 77 68 85 Respiratory 16 16 18 Rate Blood Pressure 122/84 H 129/95 H 115/99 H O2 Saturation 99 97 99 Oxygen O2 Source Room air - Labs Labs: Laboratory Tests 09/19/20 09/19/20 09/19/20 13:10 13:10 13:10 WBC 10.8 RBC 4.84 Hgb 14.8 Hct 43.2 MCV 89.3 MCH 30.6 MCHC 34.3 RDW 11.9 L Plt Count 251 MPV 10.3 Neut # (Auto) 8.3 H Lymph # (Auto) 1.8 [place] # (Auto) 0.6 Eos # (Auto) 0.0 Baso # (Auto) 0.0 Absolute Nucleated RBC 0.00 Nucleated RBC % 0.0 Sodium 136 Potassium 3.7 Chloride 100 L Carbon Dioxide 26 Anion Gap 10.0 BUN 9 Creatinine 0.7 Estimated GFR (MDRD) 95 Glucose 129 H Calcium 9.4 Total Bilirubin 0.9 AST 23 ALT 17 Alkaline Phosphatase 62 Total Protein 8.4 H Albumin 5.1 Globulin 3.3 Albumin/Globulin Ratio 1.5 Lipase 32 TSH 0.26 L Urine Color Urine Clarity Urine pH Ur Specific [place] Urine Protein Urine Glucose (UA) Urine Ketones Urine Occult Blood Urine Nitrite Urine Bilirubin Urine Urobilinogen Ur Leukocyte Esterase Ur Microscopic Review Urine Culture Comments Urine HCG, Qual 09/19/20 14:16 WBC RBC Hgb Hct MCV MCH MCHC RDW Plt Count MPV Neut # (Auto) Lymph # (Auto) [place] # (Auto) Eos # (Auto) Baso # (Auto) Absolute Nucleated RBC Nucleated RBC % Sodium Potassium Chloride Carbon Dioxide Anion Gap BUN Creatinine Estimated GFR (MDRD) Glucose Calcium Total Bilirubin AST ALT Alkaline Phosphatase Total Protein Albumin Globulin Albumin/Globulin Ratio Lipase TSH Urine Color YELLOW Urine Clarity CLEAR Urine pH 6.0 Ur Specific [place] >=1.030 H Urine Protein NEGATIVE Urine Glucose (UA) NEGATIVE Urine Ketones >=80 H Urine Occult Blood TRACE-LYSE Urine Nitrite NEGATIVE Urine Bilirubin NEGATIVE Urine Urobilinogen 0.2 (NORMAL) Ur Leukocyte Esterase NEGATIVE Ur Microscopic Review NOT INDICATED Urine Culture Comments NOT INDICATED Urine HCG, Qual NEGATIVE - Rads (name of study) CT abd Radiology: Final report received (No definite acute abdominal abnormality. Specifically no evidence of bowel obstruction.) PD MEDICAL DECISION MAKING - ED course Complexity details: reviewed results, re-evaluated patient, d/w patient, d/w family ED course: 35-year-old female presents the emergency department for evaluation of 2 days uncontrolled vomiting and diarrhea. She reported significant epigastric pain right before and after vomiting. No melena or hematic emesis. On presentation she had epigastric abdominal pain without guarding or rebound. Screening labs revealed no significant leukocytosis or worrisome electrolyte abnormality. She did achieve some symptom control with improved nausea and analgesia following fentanyl and Compazine. We did proceed to do a CT of the abdomen that did not show any findings consistent with acute appendicitis or a bowel obstruction or incarcerated hernia. Once CT scan was completed patient was then tolerating sips of clear liquids. She will be discharged with prescription for Zofran. The cause of the acute vomiting and diarrhea is not clear at this time though I do suspect a likely viral etiology. Emergent return precautions were discussed for worsening symptoms, fevers, hematic emesis or melena. Departure - Departure Disposition: 01 Home, Self Care Clinical Impression: Epigastric abdominal pain, Vomiting and diarrhea Condition: Stable Record reviewed to determine appropriate education?: Yes Instructions: Abdominal Pain Follow-Up: Analia Sequeira ARNP [Primary Care Provider] - Prescriptions: Ondansetron Odt [Zofran] 4 mg TL Q6H PRN #10 tablet PRN Reason: Nausea / Vomiting Comments: Teresa you are seen in the emergency department today for evaluation of upper abdominal pain vomiting and diarrhea. As we discussed your screening labs including your blood count and electrolytes were all essentially normal. The CT scan of your abdomen did not show any worrisome findings. Specifically no findings of appendicitis, incarcerated hernias or a bowel obstruction. We did give you a nausea medicine in the emergency department called Compazine which helps with the nausea. We also gave you fentanyl for pain. I am discharging you with a prescription of Zofran to help with nausea at home. You may take it under the tongue 2-3 times a day. I do recommend frequent sips of clear liquids over the next 24 to 48 hours. Once your nausea and vomiting is improved you can then begin eating simple foods such as bananas, rice, applesauce or toast. Return to the emergency department with uncontrolled vomiting, fevers severe worsening abdominal pain or if you have any bloody vomit or black or bloody stools.
[2020-09-19] MEDS ORDERED: IOVERSOL 320 100 ML VIAL IVP ONE ×2 (14:45→15:37)
[2020-09-19] MEDS ORDERED: fentaNYL 100 MCG/2 ML VIAL IVP STA (15:20)
[2020-09-19] MEDS ORDERED: SODIUM CHLORIDE 0.9% 1,000 ML IV STA (15:20)
[2020-09-19] MEDS ORDERED: diphenhydrAMINE INJ 50 MG/ML VIAL IVP STA (15:53)
--- NOTE | 2020-09-19 16:06 | CT Report ---
PROCEDURE: Abdomen/Pelvis W INDICATIONS: uncontrolled n/v CONTRAST: IV CONTRAST: Optiray 320 ml: 100 PO CONTRAST: *NO PO CONTRAST TECHNIQUE: After the administration of intravenous contrast, 5 mm thick sections acquired from the diaphragms to the symphysis. 5 mm thick coronal and sagittal reformats were acquired. For radiation dose reducti on, the following was used: automated exposure control, adjustment of mA and/or kV according to hans ent size. COMPARISON: CT abdomen pelvis 08/08/2020. FINDINGS: Image quality: Excellent. ABDOMEN: Lung bases: Lung bases are clear. Heart size is normal. Solid organs: Evaluation of the liver demonstrates no focal hepatic lesions. Gallbladder appears wit hin normal limits without calcified gallstones. Biliary system is non dilated. The spleen is normal in size. Pancreas enhances normally without peripancreatic fat stranding or fluid collections. No ad renal nodules. Kidneys demonstrate no hydronephrosis. Peritoneum and bowel: Bowel loops demonstrate normal wall thickness and caliber. The appendix is not discretely visualized. There are surgical sutures along the cecum likely related to prior appendecto my. No evidence of diverticulitis. No free fluid or air. Nodes and vessels: No retroperitoneal or mesenteric adenopathy by size criteria. Aorta and inferior vena cava are normal in size. Miscellaneous: No ventral hernias. PELVIS: Genitourinary: Bladder wall thickness is normal. The uterus is surgically absent. Miscellaneous: No inguinal hernias or adenopathy. Bones: No suspicious bony lesions. No vertebral body compression fractures. IMPRESSION: 1. No definite acute abdominal abnormality. Specifically, no evidence of bowel obstruction. Reviewed by: Manuel Galvan MD on 09/19/2020 4:04 PM PDT Approved by: Manuel Galvan MD on 09/19/2020 4:04 PM PDT Station ID: [id number]
[2020-09-19 17:04] VITALS: BP 116/80
== END 2020-09-19 17:15 | disposition home or self-care (01) ==
LOC: ED 12:35
DX: R10.13 Epigastric pain (principal); R11.2 Nausea with vomiting, unspecified; R19.7 Diarrhea, unspecified; R53.1 Weakness
CPT/HCPCS: 36415; 74177; 80053; 81003; 81025; 83690; 84436; 84443; 85025; 96361; 96374; 96375; 99284; J1200; Q9967; 81001; 87086

== ENCOUNTER 2020-12-22 08:00 | Outpatient (CLI) | payer OTHER | END 2020-12-22 23:59 | disposition home or self-care (01) | LOC: LAB.N 08:00 | PROVIDERS: ATTEND Physician Assistant Medical | DX: R05 Cough (principal); Z20.822 Contact with and (suspected) exposure to COVID-19 ==

== ENCOUNTER 2021-01-01 20:30 | Outpatient (CLI) | payer OTHER | END 2021-01-01 20:31 | disposition critical access hospital (66) | LOC: EMS 20:30 | DX: S01.81XA Laceration without foreign body of other part of head, initial encounter (principal); M54.5 Low back pain; M54.2 Cervicalgia; M79.662 Pain in left lower leg; M79.661 Pain in right lower leg; V86.65XA Passenger of 3- or 4- wheeled all-terrain vehicle (ATV) injured in nontraffic accident, initial encounter; Y92.9 Unspecified place or not applicable | CPT/HCPCS: A0425; A0429 ==

== ENCOUNTER 2021-01-01 21:29 | Emergency (ER) | payer OTHER ==
[2021-01-01] MEDS ORDERED: IOPAMIDOL-300 100 ML VIAL ONE (21:43)
[2021-01-01 21:57] LABS: BASOPHILS % (AUTO) 0.7 %; EOSINOPHILS # (AUTO) 0.3 10^3/uL (0.0-0.7); EOSINOPHILS % (AUTO) 4.8 %; HCT - HEMATOCRIT 41.7 % (37.0-47.0); HGB - HEMOGLOBIN 13.6 g/dL (12.0-16.0); LYMPHOCYTES % (AUTO) 35.1 %; MEAN CORPUSCULAR HEMOGLOBIN 30.3 pg (27.0-31.0); MEAN CORPUSCULAR HGB CONC 32.6 g/dL (32.0-36.0); MEAN CORPUSCULAR VOLUME 92.9 fL (81.0-99.0); MEAN PLATELET VOLUME 10.7 fL (7.9-10.8); MONOCYTES # (AUTO) 0.4 10^3/uL (0.0-1.0); MONOCYTES % (AUTO) 6.3 %; NEUTROPHILS % (AUTO) 52.9 %; PLT - PLATELET COUNT 168 10^3/uL (130-450); RED BLOOD COUNT 4.49 10^6/uL (4.20-5.40); RED CELL DISTRIBUTION WIDTH 12.4 % (12.0-15.0); WHITE BLOOD COUNT 5.7 x10^3/uL (4.8-10.8)
[2021-01-01 22:11] LABS: ALBUMIN 4.6 g/dL (3.2-5.5); ALBUMIN/GLOBULIN RATIO 1.6 (1.0-2.2); ALKALINE PHOSPHATASE 40 IU/L (42-121); ALT ALANINE AMINOTRANSFERASE 11 IU/L (10-60); AST ASPARTATE AMINOTRANSFERASE 16 IU/L (10-42); BILIRUBIN,TOTAL 0.5 mg/dL (0.2-1.0); BUN - BLOOD UREA NITROGEN 10 mg/dL (6-20); CALCIUM 9.1 mg/dL (8.5-10.3); CARBON DIOXIDE - CO2 29 mmol/L (21-32); CHLORIDE 100 mmol/L (101-111); CREATININE 0.7 mg/dL (0.4-1.0); ETOH - ETHANOL < 5.0 mg/dL; GFR - MDRD 95 (>89); GLUCOSE 99 mg/dL (70-100); LIPASE 35 U/L (22-51); POTASSIUM 3.6 mmol/L (3.5-5.0); SODIUM 137 mmol/L (135-145); TOTAL PROTEIN 7.5 g/dL (6.7-8.2)
[2021-01-01] MEDS ORDERED: IOPAMIDOL-300 100 ML VIAL IVP ONE (22:48)
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
[2021-01-02 00:57] VITALS: BP 110/68
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
== END 2021-01-02 01:22 | disposition home or self-care (01) ==
LOC: EDUNIT# → ED 21:29 → SUPCPDRO 21:29 → ED 01-02 01:22
DX: S01.81XA Laceration without foreign body of other part of head, initial encounter (principal); V86.69XA Passenger of other special all-terrain or other off-road motor vehicle injured in nontraffic accident, initial encounter; Y93.I9 Activity, other involving external motion; K59.00 Constipation, unspecified
CPT/HCPCS: 12013; 36415; 70450; 71045; 71260; 72125; 72170; 74177; 80053; 80320; 83690; 85025; 99283; 99284; Q9967

== ENCOUNTER 2021-01-08 11:56 | Emergency (ER) | payer OTHER ==
[2021-01-08 12:19] VITALS: BP 96/60
--- NOTE | 2021-01-08 12:47 | CT Report ---
PROCEDURE: HEAD WO INDICATIONS: fall, 1 week ago persistent headache/vomiting. TECHNIQUE: Noncontrast 4.5 mm thick angled axial sections acquired from the foramen magnum to the vertex. For r adiation dose reduction, the following was used: automated exposure control, adjustment of mA and/or kV according to patient size. COMPARISON: None. FINDINGS: Image quality: Excellent. CSF spaces: Basal cisterns are patent. No extra-axial fluid collections. Ventricles are normal in size and shape. Brain: No midline shift. No intracranial masses or hemorrhage. Black-white matter interface is norm al. Skull and face: Calvarium and visualized facial bones are intact, without suspicious lesions. Sinuses: Visualized sinuses and mastoids are clear. IMPRESSION: 1. No acute intracranial process. Reviewed by: Vangie Marrero MD on 01/08/2021 12:46 PM PDT Approved by: Vangie Marrero MD on 01/08/2021 12:46 PM PDT Station ID: [id number]
--- NOTE | 2021-01-08 12:57 | ED Physician Documentation ---
PD HPI HEAD INJURY - Stated complaint Stated Complaint: REMOVE STITCHES - Chief complaint Chief Complaint: Laceration - History obtained from History obtained from: Patient - History of Present Illness Mechanism of head injury: Fell Where head injury occurred: Home Timing - onset: How many weeks ago (1) Pain level max: 5 Pain level now: 4 Location of injury: Front Quality of pain: Pain, Throbbing, Aching Associated symptoms: No: LOC, AMS, Amnesia, Nausea / vomiting, Neck pain, Paresthesias Symptoms improve with: Rest Symptoms worsen with: Palpation, Movement Contributing factors: No: Anticoagulated, Intoxicated - Additional information Additional information: Patient is a 35-year-old female who states that she fell about a week ago striking her forehead had a laceration repaired and is here for suture removal. Having negative head CT at that time but states that she has had headaches and vomiting since that occurred. Nothing seems to make it better or worse. No fevers. No chills. Has not followed up with her doctor. Review of Systems Ten Systems: 10 systems reviewed and negative Constitutional: denies: Fever, Chills Respiratory: denies: Cough GI: reports: Nausea, Vomiting. denies: Abdominal Pain, Diarrhea : denies: Dysuria, Frequency, Hesitancy Skin: denies: Rash Musculoskeletal: denies: Neck pain, Back pain Neurologic: denies: Headache PD PAST MEDICAL HISTORY - Past Medical History Cardiovascular: None Respiratory: None Neuro: None Endocrine/Autoimmune: None GI: None CIRCUIT BREAKER MECHANIC: None : None HEENT: None Psych: Bipolar disorder Musculoskeletal: None, Other Derm: None - Past Surgical History Past Surgical History: Yes General: Appendectomy /CIRCUIT BREAKER MECHANIC: section, Hysterectomy - Present Medications Home Medications: Ambulatory Orders Medication Instructions Recorded Confirmed diazePAM [Valium] 1 tab PO TID 04/13/20 09/19/20 methIMAzole [Methimazole] 5 mg PO DAILY 04/13/20 09/19/20 DULoxetine [Cymbalta] 20 mg PO DAILY 08/08/20 09/19/20 Acyclovir 800 mg PO DAILY PRN 09/19/20 09/19/20 Gabapentin [Neurontin] 300 mg PO TID 09/19/20 09/19/20 Ondansetron Odt [Zofran] 4 mg TL Q6H PRN #10 tablet 09/19/20 Sumatriptan Succinate [Imitrex] 100 mg PO DAILY PRN 09/19/20 09/19/20 methocarbamoL [Methocarbamol] 500 mg PO TID 09/19/20 09/19/20 Ondansetron Odt [Zofran] 4 mg TL Q6H PRN #10 tablet 01/08/21 - Allergies Allergies/Adverse Reactions: Allergies Allergy/AdvReac Type Severity Reaction Status Date / Time morphine Allergy Respiratory Verified 01/08/21 12:13 - Social History Does the pt smoke?: No Smoking Status: Never smoker Does the pt drink ETOH?: Yes Does the pt have substance abuse?: No - Immunizations Immunizations are current?: Yes PD ED PE NORMAL - Vitals Vital signs reviewed: Yes - General General: Alert and oriented X 3, No acute distress - HEENT HEENT: PERRL, EOMI, Moist mucous membranes, Other (well healed laceration) - Neck Neck: Supple, no meningeal sign, No bony TTP - Cardiac Cardiac: RRR, Strong equal pulses - Respiratory Respiratory: No respiratory distress, Clear bilaterally - Abdomen Abdomen: Soft, Non tender, Non distended - Back Back: No spinal TTP - Derm Derm: Warm and dry - Neuro Neuro: Alert and oriented X 3, thermostatic controls supervisor 2-12 intact, No motor deficit, No sensory deficit, Normal speech Eye Opening: Spontaneous Motor: Obeys Commands Verbal: Oriented GCS Score: 15 - Psych Psych: Normal mood, Normal affect Results - Vitals Vitals: Oxygen O2 Source Room air - Rads (name of study) head CT Radiology: Final report received, EMP read contemporaneously, See rad report (no acute abnormality) Procedures - Suture/staple Removal (location) forehead Suture/staple removal: # sutures (all), No complications PD MEDICAL DECISION MAKING - ED course Complexity details: reviewed old records, reviewed results, re-evaluated patient, considered differential, d/w patient ED course: 35-year-old female with likely postconcussive injury. Sutures were removed. Tolerated well. No signs of infection. No acute findings on head CT. Not vomiting here. Patient counseled regarding signs and symptoms for which I believe and urgent re-evaluation would be necessary. Patient with good understanding of and agreement to plan and is comfortable going home at this time This document was made in part using voice recognition software. While efforts are made to proofread this document, sound alike and grammatical errors may occur. Departure - Departure Disposition: 01 Home, Self Care Clinical Impression: Post concussion syndrome, Visit for suture removal Condition: Good Instructions: ED Concussion, ED Wound Check Sutr Remove No Infec Follow-Up: Analia Sequeira ARNP [Primary Care Provider] - Within 1 week Prescriptions: Ondansetron Odt [Zofran] 4 mg TL Q6H PRN #10 tablet PRN Reason: Nausea / Vomiting Comments: Your stitches have been removed today. Return if you worsen. Your head CT is normal today. Please follow up with your doctor for further care. Your prescription was sent to [facility] in [place] Discharge Date/Time: 01/08/21 13:06
== END 2021-01-08 13:06 | disposition home or self-care (01) ==
LOC: ED 11:56
DX: S01.81XD Laceration without foreign body of other part of head, subsequent encounter (principal); W19.XXXD Unspecified fall, subsequent encounter; F07.81 Postconcussional syndrome
CPT/HCPCS: 99284

== ENCOUNTER 2021-02-16 10:42 | Outpatient (CLI) | payer OTHER | END 2021-02-16 23:59 | disposition home or self-care (01) | LOC: LAB.N 10:42 | PROVIDERS: ATTEND Family Medicine | DX: R09.81 Nasal congestion (principal); Z20.822 Contact with and (suspected) exposure to COVID-19 ==

== ENCOUNTER 2021-02-16 11:46 | Emergency (ER) | payer OTHER ==
[2021-02-16 13:30] LABS: BASOPHILS # (AUTO) 0.1 10^3/uL (0.0-0.1); BASOPHILS % (AUTO) 0.5 %; EOSINOPHILS # (AUTO) 0.1 10^3/uL (0.0-0.7); EOSINOPHILS % (AUTO) 0.5 %; HCT - HEMATOCRIT 43.8 % (37.0-47.0); HGB - HEMOGLOBIN 14.7 g/dL (12.0-16.0); LYMPHOCYTES # (AUTO) 2.8 10^3/uL (1.5-3.5); LYMPHOCYTES % (AUTO) 29.8 %; MEAN CORPUSCULAR HEMOGLOBIN 30.4 pg (27.0-31.0); MEAN CORPUSCULAR HGB CONC 33.6 g/dL (32.0-36.0); MEAN CORPUSCULAR VOLUME 90.5 fL (81.0-99.0); MEAN PLATELET VOLUME 11.7 fL (7.9-10.8); MONOCYTES # (AUTO) 0.5 10^3/uL (0.0-1.0); NEUTROPHILS # (AUTO) 5.9 10^3/uL (1.5-6.6); NEUTROPHILS % (AUTO) 63.9 %; PLT - PLATELET COUNT 197 10^3/uL (130-450); RED BLOOD COUNT 4.84 10^6/uL (4.20-5.40); WHITE BLOOD COUNT 9.3 x10^3/uL (4.8-10.8)
[2021-02-16 13:41] LABS: ALBUMIN 5.1 g/dL (3.2-5.5); ALBUMIN/GLOBULIN RATIO 1.5 (1.0-2.2); BILIRUBIN,TOTAL 0.4 mg/dL (0.2-1.0); CALCIUM 9.9 mg/dL (8.5-10.3); CREATININE 0.7 mg/dL (0.4-1.0); POTASSIUM 3.7 mmol/L (3.5-5.0); TOTAL PROTEIN 8.4 g/dL (6.7-8.2)
[2021-02-16 15:18] LABS: BILIRUBIN,URINE NEGATIVE (NEGATIVE); GLUCOSE, URINE (UA) NEGATIVE (NEGATIVE); KETONES,URINE (UA) TRACE mg/dL (NEGATIVE); LEUKOCYTE ESTERASE, URINE NEGATIVE (NEGATIVE); NITRITE,URINE NEGATIVE (NEGATIVE); OCCULT BLOOD,URINE NEGATIVE (NEGATIVE); PROTEIN,URINE NEGATIVE (NEGATIVE); UROBILINOGEN,URINE 0.2 (NORMAL) E.U./dL (NORMAL)
[2021-02-16] MEDS ORDERED: SODIUM CHLORIDE 0.9% 1,000 ML IV STA (15:21)
[2021-02-16] MEDS ORDERED: MAG HYDROX/AL HYDROX/SIMETH 30 ML UDC PO STA ×2 (15:21→16:54)
[2021-02-16] MEDS ORDERED: LIDOCAINE VISCOUS 2% 15 ML UDC MM STA ×2 (15:21→16:54)
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
[2021-02-16 15:32] LABS: CLARITY,URINE CLEAR (CLEAR); HCG UR QUAL NEGATIVE
[2021-02-16] MEDS ORDERED: PANTOPRAZOLE 40 MG VIAL IVP STA (15:56)
[2021-02-16] MEDS ORDERED: SUCRALFATE 1 GM/10 ML UDC PO STA ×2 (15:56→16:54)
[2021-02-16] MEDS ORDERED: ONDANSETRON 4 MG/2 ML VIAL IVP STA (17:39)
[2021-02-16] MEDS ORDERED: FAMOTIDINE 20 MG/2 ML VIAL IVP STA (17:39)
[2021-02-16] MEDS ORDERED: diphenhydrAMINE INJ 50 MG/ML VIAL IVP STA (18:17)
[2021-02-16] MEDS ORDERED: PROMETHAZINE INJ 25 MG in SODIUM CHLORIDE 0.9% 50 ML IV STA (18:17)
[2021-02-16] MEDS ORDERED: PROMETHAZINE 25 MG/1 ML VIAL ONE (18:35)
[2021-02-16] MEDS ORDERED: IOVERSOL 320 100 ML VIAL IVP ONE ×2 (19:28→19:54)
--- NOTE | 2021-02-16 20:08 | CT Report ---
PROCEDURE: Abdomen/Pelvis W INDICATIONS: epigastric pain vomiting. CONTRAST: IV CONTRAST: Optiray 320 ml: 100 PO CONTRAST: *NO PO CONTRAST TECHNIQUE: After the administration of contrast, 5 mm thick sections acquired from the diaphragms to the sym physis. 5 mm thick coronal and sagittal reformats were acquired. For radiation dose reduction, the following was used: automated exposure control, adjustment of mA and/or kV according to patient size . COMPARISON: None. FINDINGS: Image quality: Excellent. ABDOMEN: Lung bases: Lung bases are clear. Heart size is normal. Solid organs: Liver and spleen are normal in size and enhancement. Gallbladder is normal. Biliary system is non dilated. Pancreas enhances normally. No adrenal nodules. Kidneys demonstrate normal size and enhancement, without hydronephrosis. Peritoneum and bowel: Bowel loops demonstrate normal wall thickness and caliber. The appendix is not definitively seen, however there is no inflammation in the right lower quadrant to suggest acute alessandra endicitis. No free fluid or air. Nodes and vessels: No retroperitoneal or mesenteric adenopathy by size criteria. Aorta and inferior vena cava are normal in size. Miscellaneous: No ventral hernias. PELVIS: Genitourinary: Bladder wall thickness is normal. Miscellaneous: No inguinal hernias or adenopathy. Bones: No suspicious bony lesions. No vertebral body compression fractures. IMPRESSION: No acute abdominal or pelvic abnormality. Reviewed by: Vinny Booth on 02/16/2021 8:07 PM PDT Approved by: Vinny Booth on 02/16/2021 8:07 PM PDT Station ID: [id number]
--- NOTE | 2021-02-16 20:46 | ED Physician Documentation ---
ED Addendum - Addendum Addendum: 02/16/21 20:45 Patient endorsed to me by Dr. Holley pending CT read. CT without any acute abdominal pathology. Patient in no acute distress. Return precautions given. Impression 1 gastritis 2 abdominal pain
[2021-02-16 21:22] VITALS: BP 110/78
== END 2021-02-16 21:10 | disposition home or self-care (01) ==
LOC: ED 11:46
DX: E86.0 Dehydration (principal); K29.00 Acute gastritis without bleeding
CPT/HCPCS: 36415; 74177; 80053; 81003; 81025; 83690; 85025; 96361; 96365; 96375; 99284; 99285; A9270; J1200; J7040; Q9967; 81001; 87086

== ENCOUNTER 2021-04-02 11:44 | Emergency (ER) | payer OTHER ==
[2021-04-02 12:32] LABS: BASOPHILS # (AUTO) 0.1 10^3/uL (0.0-0.1); BASOPHILS % (AUTO) 0.7 %; EOSINOPHILS # (AUTO) 0.1 10^3/uL (0.0-0.7); HCT - HEMATOCRIT 40.6 % (37.0-47.0); HGB - HEMOGLOBIN 14.2 g/dL (12.0-16.0); LYMPHOCYTES # (AUTO) 3.3 10^3/uL (1.5-3.5); MEAN CORPUSCULAR HEMOGLOBIN 31.3 pg (27.0-31.0); MEAN CORPUSCULAR VOLUME 89.4 fL (81.0-99.0); MEAN PLATELET VOLUME 11.4 fL (7.9-10.8); MONOCYTES # (AUTO) 0.6 10^3/uL (0.0-1.0); MONOCYTES % (AUTO) 6.6 %; NEUTROPHILS # (AUTO) 4.3 10^3/uL (1.5-6.6); NEUTROPHILS % (AUTO) 51.5 %; PLT - PLATELET COUNT 187 10^3/uL (130-450); RED BLOOD COUNT 4.54 10^6/uL (4.20-5.40); RED CELL DISTRIBUTION WIDTH 11.9 % (12.0-15.0); WHITE BLOOD COUNT 8.3 x10^3/uL (4.8-10.8)
[2021-04-02 12:45] LABS: ALBUMIN 4.5 g/dL (3.2-5.5); ALBUMIN/GLOBULIN RATIO 1.5 (1.0-2.2); BILIRUBIN,TOTAL 0.7 mg/dL (0.2-1.0); CALCIUM 9.5 mg/dL (8.5-10.3); CREATININE 0.7 mg/dL (0.4-1.0); TOTAL PROTEIN 7.5 g/dL (6.7-8.2)
[2021-04-02] MEDS ORDERED: diphenhydrAMINE INJ 50 MG/ML VIAL IVP STA (12:52)
[2021-04-02] MEDS ORDERED: HYDROmorphone 1 MG/ML CARPUJECT IVP STA (12:52)
[2021-04-02] MEDS ORDERED: DROPERIDOL 5 MG/2 ML VIAL IVP STA (12:52)
--- NOTE | 2021-04-02 13:00 | ED Physician Documentation ---
PD HPI ABD PAIN - Stated complaint Stated Complaint: ABD PX - Chief complaint Chief Complaint: Abd Pain - History obtained from History obtained from: Patient - Additional information Additional information: Patient comes to emergency department chief complaint of upper abdominal pain that started this morning. Patient has a history of recurrent gastritis and states this feels very much the same. She is nauseated but has not vomited. She states the main place that she feels the pain in the left upper quadrant in the right lower quadrant. This is on par with prior episodes. Patient states she is scheduled to see a collar turner operator in early April and is also scheduled for an EGD and colonoscopy on April 10 to address her recurrent pain. She has had several CT scans in the last year or 2 which have been negative. Patient states she is already on analgesics at home, but they do not seem to be helping. She has a history of hypothyroidism and dystonia. No other complaints at this time. Review of Systems Ten Systems: 10 systems reviewed and negative Constitutional: reports: Reviewed and negative Eyes: reports: Reviewed and negative Ears: reports: Reviewed and negative Nose: reports: Reviewed and negative Throat: reports: Reviewed and negative Cardiac: reports: Reviewed and negative Respiratory: reports: Reviewed and negative GI: reports: Abdominal Pain, Nausea : reports: Reviewed and negative Skin: reports: Reviewed and negative Musculoskeletal: reports: Reviewed and negative Neurologic: reports: Reviewed and negative Psychiatric: reports: Reviewed and negative Endocrine: reports: Reviewed and negative Immunocompromised: reports: Reviewed and negative PD PAST MEDICAL HISTORY - Past Medical History Cardiovascular: None Respiratory: None Neuro: None Endocrine/Autoimmune: None GI: None FRICTION PAINT MACHINE TENDER: None : None HEENT: None Psych: Bipolar disorder Musculoskeletal: None, Other Derm: None - Past Surgical History Past Surgical History: Yes General: Appendectomy /FRICTION PAINT MACHINE TENDER: section, Hysterectomy - Present Medications Home Medications: Ambulatory Orders Medication Instructions Recorded Confirmed diazePAM [Valium] 1 tab PO TID 04/13/20 02/16/21 Gabapentin [Neurontin] 300 mg PO TID 09/19/20 02/16/21 Escitalopram [Lexapro] 10 mg PO DAILY 02/16/21 02/16/21 Sucralfate [Carafate] 1 gm PO ACHS #60 tablet 02/16/21 HYDROcod/ACETAM 5/325 [Peetz 5/325] 1 - 2 tablet PO Q6H PRN #14 tablet 04/02/21 Omeprazole Magnesium 20 mg PO DAILY #30 tab 04/02/21 Ondansetron Odt [Zofran] 4 mg TL Q6H PRN #10 tablet 04/02/21 - Allergies Allergies/Adverse Reactions: Allergies Allergy/AdvReac Type Severity Reaction Status Date / Time morphine Allergy Respiratory Verified 04/02/21 11:55 - Social History Does the pt smoke?: No Smoking Status: Never smoker Does the pt drink ETOH?: Yes Does the pt have substance abuse?: No - Immunizations Immunizations are current?: Yes PD ED PE NORMAL - Vitals Vital signs reviewed: Yes - General General: Alert and oriented X 3, Well developed/nourished, Other (The patient is rocking, hyperventilating, holding her abdomen, and crying.) - HEENT HEENT: Atraumatic, PERRL, EOMI, Moist mucous membranes - Neck Neck: Supple, no meningeal sign - Cardiac Cardiac: RRR, No murmur - Respiratory Respiratory: Clear bilaterally - Abdomen Abdomen: Soft, Non distended, Other (Diffuse tenderness, worse in the left upper quadrant. No rebound or guarding.) - Derm Derm: Normal color, Warm and dry, No rash - Extremities Extremities: No deformity, No edema - Neuro Neuro: Alert and oriented X 3, product distribution specialist 2-12 intact, Normal speech, Other (Grossly normal) - Psych Psych: Normal mood, Normal affect Results - Vitals Vitals: Vital Signs - 24 hr 04/02/21 11:56 Temperature 36.7 C Heart Rate 86 Respiratory 18 Rate Blood Pressure 134/56 H O2 Saturation 94 Oxygen O2 Source Room air - Labs Labs: Laboratory Tests 04/02/21 04/02/21 12:24 12:24 WBC 8.3 RBC 4.54 Hgb 14.2 Hct 40.6 MCV 89.4 MCH 31.3 H MCHC 35.0 RDW 11.9 L Plt Count 187 MPV 11.4 H Neut # (Auto) 4.3 Lymph # (Auto) 3.3 [place] # (Auto) 0.6 Eos # (Auto) 0.1 Baso # (Auto) 0.1 Absolute Nucleated RBC 0.00 Nucleated RBC % 0.0 Sodium 138 Potassium 4.0 Chloride 106 Carbon Dioxide 25 Anion Gap 7.0 BUN 8 Creatinine 0.7 Estimated GFR (MDRD) 95 Glucose 91 Calcium 9.5 Total Bilirubin 0.7 AST 21 ALT 14 Alkaline Phosphatase 44 Total Protein 7.5 Albumin 4.5 Globulin 3.0 Albumin/Globulin Ratio 1.5 Lipase 36 PD MEDICAL DECISION MAKING - ED course Complexity details: reviewed results, re-evaluated patient, considered differential, d/w patient ED course: The patient was treated symptomatically with IV Dilaudid, Benadryl, and droperidol. She was worked up with laboratory studies, which were unremarkable. I did not feel that repeat imaging was indicated, given that patient symptoms are very much consistent with previous episodes of her chronic, recurrent gastritis. The patient was found to be feeling better after symptomatic treatment, and I felt she was stable for discharge home. She is encouraged to continue her plans to follow-up for her scopes as well as to be seen by gastroenterology. We have discussed the usual indications for return as well as symptomatic management at home. Departure - Departure Disposition: Home, Self Care Clinical Impression: Abdominal pain Qualifiers: Abdominal location: left upper quadrant Qualified Code(s): R10.12 - Left upper quadrant pain Condition: Stable Instructions: ED Abdominal Pain Female Non-Specific Abdominal Pain, ED PUD Vs Gastritis Prescriptions: HYDROcod/ACETAM 5/325 [Peetz 5/325] 1 - 2 tablet PO Q6H PRN #14 tablet PRN Reason: Pain Omeprazole Magnesium 20 mg PO DAILY #30 tab Ondansetron Odt [Zofran] 4 mg TL Q6H PRN #10 tablet PRN Reason: Nausea / Vomiting Comments: Your labs look good today. Your prescriptions have been electronically transmitted to [facility] pharmacy in [place]. It is very important that you continue your plans to get your endoscopy and colonoscopy done and to follow-up with the collar turner operator. It is not clear exactly what is causing your repeated episodes of upper abdominal pain, but these 2 modalities are going to be the best plan to try to sort this out once and for all. Please try to drink plenty of fluids but do not gonzalez into eating food until your stomach is feeling better.
[2021-04-02 14:19] VITALS: BP 104/69
== END 2021-04-02 14:23 | disposition home or self-care (01) ==
LOC: ED 11:44
DX: R10.12 Left upper quadrant pain (principal)
CPT/HCPCS: 36415; 80053; 83690; 85025; 96374; 96375; 99283; 99284; J1170; J1200

== ENCOUNTER 2021-04-08 12:02 | Outpatient (CLI) | payer OTHER | END 2021-04-08 12:03 | disposition critical access hospital (66) | LOC: EMS 12:02 | DX: R55 Syncope and collapse (principal) | CPT/HCPCS: A0425; A0429 ==

== ENCOUNTER 2021-04-08 12:19 | Emergency (ER) | payer OTHER ==
[2021-04-08 12:47] LABS: BASOPHILS % (AUTO) 0.6 %; EOSINOPHILS # (AUTO) 0.1 10^3/uL (0.0-0.7); EOSINOPHILS % (AUTO) 1.8 %; HCT - HEMATOCRIT 36.8 % (37.0-47.0); HGB - HEMOGLOBIN 12.5 g/dL (12.0-16.0); LYMPHOCYTES # (AUTO) 2.2 10^3/uL (1.5-3.5); LYMPHOCYTES % (AUTO) 33.5 %; MEAN CORPUSCULAR VOLUME 91.3 fL (81.0-99.0); MEAN PLATELET VOLUME 11.5 fL (7.9-10.8); MONOCYTES # (AUTO) 0.4 10^3/uL (0.0-1.0); MONOCYTES % (AUTO) 5.7 %; NEUTROPHILS # (AUTO) 3.8 10^3/uL (1.5-6.6); NEUTROPHILS % (AUTO) 58.2 %; PLT - PLATELET COUNT 148 10^3/uL (130-450); RED BLOOD COUNT 4.03 10^6/uL (4.20-5.40); RED CELL DISTRIBUTION WIDTH 11.9 % (12.0-15.0); WHITE BLOOD COUNT 6.5 x10^3/uL (4.8-10.8)
[2021-04-08 13:02] LABS: ALBUMIN 3.8 g/dL (3.2-5.5); ALBUMIN/GLOBULIN RATIO 1.5 (1.0-2.2); BILIRUBIN,TOTAL 0.5 mg/dL (0.2-1.0); CALCIUM 8.7 mg/dL (8.5-10.3); CREATININE 0.6 mg/dL (0.4-1.0); POTASSIUM 4.3 mmol/L (3.5-5.0); TOTAL PROTEIN 6.3 g/dL (6.7-8.2)
[2021-04-08] MEDS ORDERED: ONDANSETRON 4 MG/2 ML VIAL IVP STA (13:12)
[2021-04-08] MEDS ORDERED: KETOROLAC 30 MG/ML VIAL IVP STA (13:12)
--- NOTE | 2021-04-08 13:14 | ED Physician Documentation ---
PD HPI SYNCOPE - Stated complaint Stated Complaint: SYNCOPE - Chief complaint Chief Complaint: Neuro - History obtained from History obtained from: Patient - Additional information Additional information: 35-year-old woman with history of cervical dystonia, GI issues and blepharospasm was in her usual state of health and had a syncopal episode at work. She was in a standing position and had a coughing fit and then passed out. She does not remember hitting the ground. She has a severe posterior headache and neck ache. No other injuries. There is no associated chest pain or trouble breathing. No history of heart issues. No possibility of . Review of Systems Constitutional: denies: Fever, Chills Cardiac: denies: Chest pain / pressure, Pedal edema, Calf pain Respiratory: reports: Cough. denies: Dyspnea, Hemoptysis, Wheezing PD PAST MEDICAL HISTORY - Past Medical History Cardiovascular: None Respiratory: None Neuro: None Endocrine/Autoimmune: None GI: None PROJECT MANAGEMENT ADVISOR: None : None HEENT: None Psych: Bipolar disorder Musculoskeletal: None, Other Derm: None - Past Surgical History Past Surgical History: Yes General: Appendectomy /PROJECT MANAGEMENT ADVISOR: section, Hysterectomy - Present Medications Home Medications: Ambulatory Orders Medication Instructions Recorded Confirmed diazePAM [Valium] 1 tab PO TID 04/13/20 02/16/21 Gabapentin [Neurontin] 300 mg PO TID 09/19/20 02/16/21 Escitalopram [Lexapro] 10 mg PO DAILY 02/16/21 02/16/21 Sucralfate [Carafate] 1 gm PO ACHS #60 tablet 02/16/21 HYDROcod/ACETAM 5/325 [Jean 5/325] 1 - 2 tablet PO Q6H PRN #14 tablet 04/02/21 Omeprazole Magnesium 20 mg PO DAILY #30 tab 04/02/21 Ondansetron Odt [Zofran] 4 mg TL Q6H PRN #10 tablet 04/02/21 - Allergies Allergies/Adverse Reactions: Allergies Allergy/AdvReac Type Severity Reaction Status Date / Time morphine Allergy Respiratory Verified 04/08/21 12:31 - Social History Does the pt smoke?: No Smoking Status: Never smoker Does the pt drink ETOH?: Yes Does the pt have substance abuse?: No - Immunizations Immunizations are current?: Yes PD ED PE NORMAL - Vitals Vital signs reviewed: Yes - General General: Alert and oriented X 3, No acute distress - HEENT HEENT: PERRL, EOMI - Neck Neck: Other (In a c-collar maintained pending imaging given some upper and mid C-spine tenderness) - Cardiac Cardiac: RRR, No murmur - Respiratory Respiratory: No respiratory distress, Clear bilaterally - Abdomen Abdomen: Normal bowel sounds, Soft, Non tender - Back Back: No CVA TTP - Derm Derm: Normal color, Warm and dry - Extremities Extremities: No edema, No calf tenderness / cord - Neuro Neuro: Alert and oriented X 3, analog circuit designer 2-12 intact, No motor deficit, No sensory deficit, Normal speech Results - Vitals Vitals: Vital Signs - 24 hr 04/08/21 04/08/21 12:19 13:37 Temperature 37.4 C Heart Rate 79 63 Respiratory 18 23 Rate Blood Pressure 119/79 110/76 O2 Saturation 100 100 Oxygen O2 Source Room air - EKG (time done) 1343 Rate: Rate (enter#) (71) Rhythm: NSR [place]: Normal Intervals: Normal [place] QRS: Normal Ischemia: Normal ST segments - Labs Labs: Laboratory Tests 04/08/21 04/08/21 04/08/21 12:42 12:42 12:42 WBC 6.5 RBC 4.03 L Hgb 12.5 Hct 36.8 L MCV 91.3 MCH 31.0 MCHC 34.0 RDW 11.9 L Plt Count 148 MPV 11.5 H Neut # (Auto) 3.8 Lymph # (Auto) 2.2 [place] # (Auto) 0.4 Eos # (Auto) 0.1 Baso # (Auto) 0.0 Absolute Nucleated RBC 0.00 Nucleated RBC % 0.0 Sodium 138 Potassium 4.3 Chloride 105 Carbon Dioxide 26 Anion Gap 7.0 BUN 10 Creatinine 0.6 Estimated GFR (MDRD) 114 Glucose 88 Calcium 8.7 Total Bilirubin 0.5 AST 15 ALT 11 Alkaline Phosphatase 34 L Troponin I High Sens < 2.3 L Total Protein 6.3 L Albumin 3.8 Globulin 2.5 Albumin/Globulin Ratio 1.5 Lipase 34 - Rads (name of study) CT head/neck Radiology: EMP read contemporaneously PD MEDICAL DECISION MAKING - ED course ED course: 35-year-old woman with syncope associated with cough which was likely causative due to increased intrathoracic pressure. Also had head and neck injury but CT imaging of the areas was negative and the c-collar was removed. She had full range of motion of neck. No other voiced complaints. Departure - Departure Disposition: 01 Home, Self Care Clinical Impression: Syncope Qualifiers: Syncope type: unspecified Qualified Code(s): R55 - Syncope and collapse Head injury Qualifiers: Encounter type: initial encounter Qualified Code(s): S09.90XA - Unspecified injury of head, initial encounter Neck strain Qualifiers: Encounter type: initial encounter Qualified Code(s): S16.1XXA - Strain of muscle, fascia and tendon at neck level, initial encounter Condition: Good Record reviewed to determine appropriate education?: Yes Instructions: ED Fainting Unkn Cause, ED Head Injury Closed, ED Sprain Strain Neck Comments: Tylenol and/ or ibuprofen as needed for pain. Return for new or worsening symptoms. Follow-up with your doctor this coming week for recheck.
[2021-04-08 13:39] VITALS: BP 110/76
--- NOTE | 2021-04-08 14:20 | CT Report ---
PROCEDURE: HEAD WO INDICATIONS: head / neck inj TECHNIQUE: Noncontrast 4.5 mm thick angled axial sections acquired from the foramen magnum to the vertex. For r adiation dose reduction, the following was used: automated exposure control, adjustment of mA and/or kV according to patient size. COMPARISON: Head CT dated 01/08/2021 FINDINGS: Image quality: Excellent. CSF spaces: Basal cisterns are patent. No extra-axial fluid collections. Ventricles are normal in size and shape. Brain: No midline shift. No intracranial masses or hemorrhage. Black-white matter interface is norm al. Skull and face: Calvarium and visualized facial bones are intact, without suspicious lesions. Sinuses: Visualized sinuses and mastoids are clear. IMPRESSION: No acute intracranial abnormality. Reviewed by: Madison Dior MD on 04/08/2021 1:19 PM [facility] Approved by: Madison Dior MD on 04/08/2021 1:19 PM [facility] Station ID: [id number]
--- NOTE | 2021-04-08 14:21 | CT Report ---
PROCEDURE: CERVICAL SPINE WO INDICATIONS: head / neck inj TECHNIQUE: Noncontrast 3 mm thick sections acquired from the skull base to the T4 level. Sagittal and coronal r eformats were then constructed. For radiation dose reduction, the following was used: automated exp osure control, adjustment of mA and/or kV according to patient size. COMPARISON: None. FINDINGS: Image quality: Excellent. Bones: No fractures or dislocations. Visualized superior ribs are intact. Soft tissues: Prevertebral soft tissues are normal in thickness. No paravertebral hematomas. No ap ical pneumothoraces. IMPRESSION: No fracture. Reviewed by: Madison Dior MD on 04/08/2021 1:20 PM [facility] Approved by: Madison Dior MD on 04/08/2021 1:20 PM [facility] Station ID: [id number]
== END 2021-04-08 14:45 | disposition home or self-care (01) ==
LOC: EDUNIT# → ED 12:19
DX: R55 Syncope and collapse (principal); R05.9 Cough, unspecified; S09.90XA Unspecified injury of head, initial encounter; S16.1XXA Strain of muscle, fascia and tendon at neck level, initial encounter; W18.30XA Fall on same level, unspecified, initial encounter; Y99.0 Civilian activity done for income or pay
CPT/HCPCS: 36415; 80053; 83690; 84484; 85025; 93005; 96374; 96375; 99283

== ENCOUNTER 2021-04-25 06:22 | Day surgery (SDC) | payer OTHER ==
[2021-04-25] MEDS ORDERED: LACTATED RINGERS 1,000 ML IV ONE (06:57)
--- NOTE | 2021-04-25 07:47 | ANESTHESIA ---
Pre-Anesthesia VS, & Labs - Diagnosis n/v, abd pain, blood in stool - Procedure EGD/Colonoscopy Vital Signs: Temp Pulse Resp BP Pulse Ox 36.3 C L 64 18 105/74 98 04/25/21 06:57 04/25/21 06:57 04/25/21 06:57 04/25/21 06:57 04/25/21 06:57 Height: 5 ft Weight (kg): 56.7 kg Body Mass Index: 24.4 BMI Classification: Healthy weight - NPO >8 hours - Is Patient ?: No Home Medications and Allergies Home Medications: Ambulatory Orders Trazodone HCl 100 mg QPM 04/24/21 clonazePAM [Clonazepam] 0.5 mg TID 04/24/21 methIMAzole [Methimazole] 10 mg PO DAILY 04/25/21 Gabapentin [Neurontin] 300 mg PO TID 09/19/20 Escitalopram [Lexapro] 10 mg PO DAILY 02/16/21 Trazodone HCl 100 mg QPM 04/24/21 clonazePAM [Clonazepam] 0.5 mg TID 04/24/21 methIMAzole [Methimazole] 10 mg PO DAILY 04/25/21 Allergies/Adverse Reactions: Allergies Allergy/AdvReac Type Severity Reaction Status Date / Time morphine Allergy Respiratory Verified 04/24/21 14:51 Anes History & Medical History - Anesthetic History Anesthesia Complications: reports: No previous complications Family history of Anesthesia Complications: Denies Family history of Malignant Hyperthermia: Denies - Medical History Cardiovascular: reports: None Pulmonary: reports: None Gastrointestinal: reports: Hemorrhoids, Other Urinary: reports: None Neuro: reports: Fainting (syncope of unknown cause), Other (cervical dystonia) Musculoskeletal: reports: None Endocrine/Autoimmune: reports: None Blood Disorders: reports: None Skin: reports: None Smoking Status: Never smoker Psychosocial: reports: Cannabis (3+x/day) History of Cancer?: No - Surgical History General: reports: Appendectomy, Other Gynecologic: reports: section, Hysterectomy Exam General: Alert, Oriented x3, Cooperative Dental: WNL Mouth Openin Fingerbreadth Neck Mobility: Normal Mallampati classification: I Thyromental Distance: 4-6 cm Respiratory: Lungs clear Cardiovascular: Regular rate Plan Anesthesia Type: General Consent for Procedure(s) Verified and Reviewed: Yes Code Status: Attempt Resuscitation ASA classification: 2-Mild systemic disease Is this case an emergency?: No
[2021-04-25] MEDS ORDERED: PROPOFOL 500 MG/50 ML 500 MG/50 ML VIAL ONE (08:37)
[2021-04-25] MEDS ORDERED: fentaNYL 100 MCG/2 ML VIAL ONE (08:37)
[2021-04-25] MEDS ORDERED: LIDOCAINE-MPF 2% 5 ML VIAL ONE (08:37)
[2021-04-25] MEDS ORDERED: MIDAZOLAM 2 MG/2 ML VIAL ONE (08:37)
[2021-04-25] MEDS ORDERED: LACTATED RINGERS 400 ML IV ONE (10:05)
[2021-04-25 10:31] VITALS: BP 114/78
--- NOTE | 2021-04-25 11:34 | ANESTHESIA POST OP EVALUATION ---
Anesthesia Post Eval - Post Anesthesia Eval Vitals: Last Vital Signs Temp 36.3 C L 04/25/21 10:26 Pulse 70 04/25/21 10:26 Resp 20 04/25/21 10:26 BP 114/78 04/25/21 10:26 Pulse Ox 98 04/25/21 10:26 CV Function Including HR & BP: Stable Pain Control: Satisfactory Nausea & Vomiting: Negative Mental Status: Baseline Respiratory Status: Airway Patent Hydration Status: Satisfactory Anesthesia Complications: None
== END 2021-04-25 06:23 | disposition home or self-care (01) ==
LOC: SDS 06:22
PROVIDERS: ATTEND Surgery
PROC: 0DB28ZX Excision of Middle Esophagus, Via Natural or Artificial Opening Endoscopic, Diagnostic (ICD-10-PCS; 2021-04-25)
PROC: 0DB38ZX Excision of Lower Esophagus, Via Natural or Artificial Opening Endoscopic, Diagnostic (ICD-10-PCS; 2021-04-25)
PROC: 0DB48ZX Excision of Esophagogastric Junction, Via Natural or Artificial Opening Endoscopic, Diagnostic (ICD-10-PCS; 2021-04-25)
PROC: 0DB98ZX Excision of Duodenum, Via Natural or Artificial Opening Endoscopic, Diagnostic (ICD-10-PCS; principal; 2021-04-25 08:30)
PROC: 0DB78ZX Excision of Stomach, Pylorus, Via Natural or Artificial Opening Endoscopic, Diagnostic (ICD-10-PCS; 2021-04-25 08:30)
DX: R10.33 Periumbilical pain (principal); K29.51 Unspecified chronic gastritis with bleeding; D64.9 Anemia, unspecified
CPT/HCPCS: 43239; J7120

== ENCOUNTER 2021-07-06 21:09 | Outpatient (CLI) | payer OTHER | END 2021-07-06 21:10 | disposition EMS.NT | LOC: EMS 21:09 | DX: R55 Syncope and collapse (principal) ==

== ENCOUNTER 2021-07-08 15:11 | Outpatient (CLI) | payer OTHER | END 2021-07-08 15:12 | disposition critical access hospital (66) | LOC: EMS 15:11 | DX: R55 Syncope and collapse (principal); R10.9 Unspecified abdominal pain | CPT/HCPCS: A0425; A0429 ==

== ENCOUNTER 2021-07-08 15:22 | Emergency (ER) | payer OTHER ==
[2021-07-08 16:00] LABS: BASOPHILS # (AUTO) 0.1 10^3/uL (0.0-0.1); BASOPHILS % (AUTO) 0.9 %; EOSINOPHILS # (AUTO) 0.2 10^3/uL (0.0-0.7); EOSINOPHILS % (AUTO) 3.2 %; HCT - HEMATOCRIT 42.7 % (37.0-47.0); HGB - HEMOGLOBIN 14.2 g/dL (12.0-16.0); LYMPHOCYTES # (AUTO) 2.1 10^3/uL (1.5-3.5); LYMPHOCYTES % (AUTO) 37.3 %; MEAN CORPUSCULAR HEMOGLOBIN 30.9 pg (27.0-31.0); MEAN CORPUSCULAR HGB CONC 33.3 g/dL (32.0-36.0); MEAN CORPUSCULAR VOLUME 92.8 fL (81.0-99.0); MEAN PLATELET VOLUME 10.6 fL (7.9-10.8); MONOCYTES # (AUTO) 0.4 10^3/uL (0.0-1.0); MONOCYTES % (AUTO) 7.3 %; NEUTROPHILS # (AUTO) 2.9 10^3/uL (1.5-6.6); NEUTROPHILS % (AUTO) 51.1 %; PLT - PLATELET COUNT 188 10^3/uL (130-450); RED CELL DISTRIBUTION WIDTH 11.7 % (12.0-15.0); WHITE BLOOD COUNT 5.6 x10^3/uL (4.8-10.8)
[2021-07-08 16:13] LABS: ALBUMIN 4.2 g/dL (3.2-5.5); ALBUMIN/GLOBULIN RATIO 1.4 (1.0-2.2); BILIRUBIN,TOTAL 0.5 mg/dL (0.2-1.0); CALCIUM 8.9 mg/dL (8.5-10.3); CREATININE 0.8 mg/dL (0.4-1.0); POTASSIUM 3.9 mmol/L (3.5-5.0); TOTAL PROTEIN 7.2 g/dL (6.7-8.2)
--- NOTE | 2021-07-08 16:24 | ED Physician Documentation ---
History of Present Illness - Stated complaint Stated Complaint: SYNCOPAL EPISODE - Chief complaint Chief Complaint: Neuro - History obtained from History obtained from: Patient - History of Present Illness Timing: Today Pain level max: 5 Pain level now: 5 - Additonal information Additional information: Patient is a 36-year-old female who presents to the emergency department with syncope today. She states that this has been occurring daily for several months. Unknown cause. She states it usually happens when she stands up. Occasionally feels lightheaded and dizzy. Occasionally has chest pain, no palpitations. Currently complaining of pain to the center of the chest, right upper quadrant. Worse with eating and drinking. Has a history of reflux. No history of heart problems in the past. Does have a history of dystonia. She states she is awaiting an appointment with GI for chronic abdominal issues. Denies any possibility of . She does smoke cigarettes, vape and use marijuana. She does not use any alcohol. Denies any other drug use. Review of Systems Ten Systems: 10 systems reviewed and negative Constitutional: denies: Fever, Chills Ears: denies: Ear pain Nose: denies: Rhinorrhea / runny nose, Congestion GI: denies: Vomiting, Diarrhea Skin: denies: Rash PD PAST MEDICAL HISTORY - Past Medical History Past Medical History: Yes Cardiovascular: None Respiratory: None Neuro: Fainting, Other Endocrine/Autoimmune: HyPERthyroidism GI: Hemorrhoids, Other HAIRSPRING I INSPECTOR: None : None HEENT: None Psych: Depression, Anxiety Musculoskeletal: None Derm: None Other Past Medical History: dystonia - Past Surgical History Past Surgical History: Yes General: Appendectomy, Other /HAIRSPRING I INSPECTOR: section, Hysterectomy - Present Medications Home Medications: Ambulatory Orders Medication Instructions Recorded Confirmed Gabapentin [Neurontin] 300 mg PO TID 09/19/20 07/08/21 Escitalopram [Lexapro] 10 mg PO DAILY 02/16/21 07/08/21 Trazodone HCl 100 mg QPM 04/24/21 07/08/21 methIMAzole [Methimazole] 10 mg PO DAILY 04/25/21 07/08/21 diazePAM [Valium] 10 mg PO TID PRN 07/08/21 07/08/21 - Allergies Allergies/Adverse Reactions: Allergies Allergy/AdvReac Type Severity Reaction Status Date / Time morphine Allergy Respiratory Verified 07/08/21 15:28 - Social History Does the pt smoke?: No Smoking Status: Current every day smoker Does the pt drink ETOH?: Yes Does the pt have substance abuse?: Yes Substance Use and Type: Marijuana - Immunizations Immunizations are current?: Yes PD ED PE NORMAL - Vitals Vital signs reviewed: Yes - General General: Alert and oriented X 3, No acute distress - HEENT HEENT: Moist mucous membranes, Pharynx benign - Neck Neck: Supple, no meningeal sign - Cardiac Cardiac: RRR - Respiratory Respiratory: No respiratory distress, Clear bilaterally - Abdomen Abdomen: Soft, Non tender, Non distended - Back Back: No CVA TTP, No spinal TTP - Derm Derm: Warm and dry - Extremities Extremities: No edema, No calf tenderness / cord - Neuro Neuro: Alert and oriented X 3, labor relations analyst 2-12 intact, No motor deficit, No sensory deficit, Normal speech Eye Opening: Spontaneous Motor: Obeys Commands Verbal: Oriented GCS Score: 15 - Psych Psych: Normal mood, Normal affect Results - Vitals Vitals: Vital Signs - 24 hr 07/08/21 07/08/21 07/08/21 15:28 16:05 16:34 Temperature 36.5 C Heart Rate 60 64 70 Respiratory 16 16 16 Rate Blood Pressure 111/71 110/73 96/67 O2 Saturation 100 100 98 07/08/21 07/08/21 17:01 18:04 Temperature Heart Rate 57 L 70 Respiratory 12 20 Rate Blood Pressure 108/71 106/70 O2 Saturation 99 100 Oxygen O2 Source Room air - EKG (time done) 1527 Rate: Rate (enter#) (58) Rhythm: NSR [place]: Normal Intervals: Normal [place] QRS: Normal Ischemia: Normal ST segments - Labs Labs: Laboratory Tests 07/08/21 07/08/21 07/08/21 15:54 15:54 15:54 WBC 5.6 RBC 4.60 Hgb 14.2 Hct 42.7 MCV 92.8 MCH 30.9 MCHC 33.3 RDW 11.7 L Plt Count 188 MPV 10.6 Neut # (Auto) 2.9 Lymph # (Auto) 2.1 [place] # (Auto) 0.4 Eos # (Auto) 0.2 Baso # (Auto) 0.1 Absolute Nucleated RBC 0.00 Nucleated RBC % 0.0 D-Dimer Sodium 136 Potassium 3.9 Chloride 100 L Carbon Dioxide 27 Anion Gap 9.0 BUN 8 Creatinine 0.8 Estimated GFR (MDRD) 81 L Glucose 89 Calcium 8.9 Total Bilirubin 0.5 AST 17 ALT 18 Alkaline Phosphatase 50 Troponin I High Sens < 2.3 L Total Protein 7.2 Albumin 4.2 Globulin 3.0 Albumin/Globulin Ratio 1.4 Lipase 35 07/08/21 15:54 WBC RBC Hgb Hct MCV MCH MCHC RDW Plt Count MPV Neut # (Auto) Lymph # (Auto) [place] # (Auto) Eos # (Auto) Baso # (Auto) Absolute Nucleated RBC Nucleated RBC % D-Dimer 259.0 H Sodium Potassium Chloride Carbon Dioxide Anion Gap BUN Creatinine Estimated GFR (MDRD) Glucose Calcium Total Bilirubin AST ALT Alkaline Phosphatase Troponin I High Sens Total Protein Albumin Globulin Albumin/Globulin Ratio Lipase - Rads (name of study) CXR Radiology: Final report received, EMP read contemporaneously, See rad report [facility]PA Radiology: Final report received, EMP read contemporaneously, See rad report PD MEDICAL DECISION MAKING - ED course Complexity details: reviewed results, re-evaluated patient, considered differential (No ST elevation [place], no aortic dissection, no PE, no tension pneumothorax, no aortic aneurysm), d/w patient ED course: Patient with syncope today. Also with chest pain. Unclear etiology. No acute findings on chest x-ray or CT pulmonary angiogram. No acute findings on EKG. No acute findings on laboratory testing. No arrhythmias on telemetry. Feels better after Toradol as well as a GI cocktail. We will have her follow-up with her doctor for a groundwater monitoring technician and further care. Patient currently asymptomatic. Eating and drinking without difficulty here. Ambulating without difficulty. Patient counseled regarding signs and symptoms for which I believe and urgent re-evaluation would be necessary. Patient with good understanding of and agreement to plan and is comfortable going home at this time This document was made in part using voice recognition software. While efforts are made to proofread this document, sound alike and grammatical errors may occur. Departure - Departure Disposition: 01 Home, Self Care Clinical Impression: Syncope Qualifiers: Syncope type: unspecified Qualified Code(s): R55 - Syncope and collapse Chest pain Qualifiers: Chest pain type: unspecified Qualified Code(s): R07.9 - Chest pain, unspecified Condition: Good Instructions: ED Chest Pain Atypical Unkn Cause, ED Fainting Unkn Cause Follow-Up: Provider,Other [Primary Care Provider] - Within 3 Days Comments: The cause of your symptoms is unclear today. Please follow-up with your doctor for further care. You should have a Holter monitor placed which will monitor you for any arrhythmias. They should also do a GI work-up on you to exclude any issue with your gastrointestinal system. This may include an ultrasound and/or endoscopy. Your testing today does not show any acute abnormalities. Your CT angiogram of the chest does not show any acute abnormalities either. Return if you worsen. Discharge Date/Time: 07/08/21 18:52
[2021-07-08] MEDS ORDERED: SUCRALFATE 1 GM/10 ML UDC PO STA (16:25)
[2021-07-08] MEDS ORDERED: MAG HYDROX/AL HYDROX/SIMETH 30 ML UDC PO STA (16:25)
[2021-07-08] MEDS ORDERED: IOVERSOL 320 100 ML VIAL IVP ONE ×2 (17:04→17:24)
--- NOTE | 2021-07-08 17:56 | CT Report ---
PROCEDURE: ANGIO CHEST W/WO INDICATIONS: pleuritic CP CONTRAST: IV CONTRAST: Optiray 320 ml: 80 PO CONTRAST: Isovue 300 ml80 TECHNIQUE: After the administration of intravenous contrast, 2 mm axial images were acquired from the pulmonary apices to the posterior costophrenic angles during the arterial phase. In addition, 1 mm lung kernel and 5 mm soft tissue kernel reconstructions were performed. 3-dimensional coronal oblique maximum int ensity projection (MIP) reformats, 8 mm axial MIP, and 5 mm coronal and sagittal MPR reformats were t hen performed through the thorax. For radiation dose reduction, the following was used: automated exp osure control, adjustment of mA and/or kV according to patient size. COMPARISON: CT chest 01/01/2021. FINDINGS: Image quality: Excellent. Pulmonary arteries: Pulmonary arteries are normal in size, and demonstrate no intraluminal filling d efects to suggest pulmonary embolism. Lungs and pleura: Minimal dependent atelectasis. No consolidation. No significant pulmonary nodules. No pleural effusions or pneumothorax. Central and peripheral airways are patent. Mediastinum: Heart size is normal, without pericardial effusion. No mediastinal or hilar adenopathy . Thoracic aorta is normal in caliber and enhancement. Esophagus is normal in caliber, without hiat al hernia. Bones and chest wall: No suspicious bony lesions. Ribs and thoracic spine appear intact throughout. No axillary or supraclavicular adenopathy. The thyroid is normal in size and there are no incident al findings. Abdomen: Visualized upper abdominal solid organs appear normal in the early arterial phase of enhanc ement. IMPRESSION: 1. No pulmonary embolism. 2. No significant acute airspace opacity. No pleural effusion. Reviewed by: Feliz Wang MD on 07/08/2021 4:55 PM [facility] Approved by: Feliz Wang MD on 07/08/2021 4:55 PM [facility] Station ID: [id number]
--- NOTE | 2021-07-08 17:58 | XRAY Report ---
PROCEDURE: Chest 1 View X-Ray INDICATIONS: chest pain TECHNIQUE: One view of the chest was acquired. COMPARISON: CT chest 01/01/2021. FINDINGS: Surgical changes and devices: None. Lungs and pleura: No pleural effusions or pneumothorax. Lungs are clear. Mediastinum: Mediastinal contours appear normal. Heart size is normal. Bones and chest wall: No suspicious bony lesions. Overlying soft tissues appear unremarkable. IMPRESSION: No acute cardiopulmonary abnormality. Reviewed by: Feliz Wang MD on 07/08/2021 4:57 PM [facility] Approved by: Feliz Wang MD on 07/08/2021 4:57 PM [facility] Station ID: [id number]
[2021-07-08] MEDS ORDERED: KETOROLAC 30 MG/ML VIAL IVP STA (18:03)
[2021-07-08 18:05] VITALS: BP 106/70
== END 2021-07-08 18:52 | disposition home or self-care (01) ==
LOC: EDUNIT# → ED 15:22
DX: R55 Syncope and collapse (principal); R07.9 Chest pain, unspecified; F17.200 Nicotine dependence, unspecified, uncomplicated
CPT/HCPCS: 36415; 71045; 71275; 80053; 83690; 84484; 85025; 85379; 93005; 96374; 99284; A9270; Q9967

== ENCOUNTER 2021-09-17 12:59 | Emergency (ER) | payer OTHER ==
[2021-09-17 13:12] VITALS: BP 118/71
[2021-09-17] MEDS ORDERED: predniSONE 20 MG TABLET PO STA (13:23)
[2021-09-17] MEDS ORDERED: oxyCODONE 5 MG TABLET PO STA (13:23)
[2021-09-17] MEDS ORDERED: KETOROLAC 60 MG/2 ML VIAL IM STA (13:24)
--- NOTE | 2021-09-17 13:25 | ED Physician Documentation ---
PD HPI BACK PAIN - Stated complaint Stated Complaint: BACK AND LEG PX - Chief complaint Chief Complaint: Back Pain - History obtained from History obtained from: Patient - Additional information Additional information: 36-year-old woman on Valium for dystonia presents with right-sided back and leg pain as well as leg tingling starting yesterday. There was no injury. It was worse after standing a lot at work today. She is never had this before. No saddle anesthesia, incontinence or fevers. No possibility of . She has a history of morphine allergy with anaphylaxis but has taken oxycodone before without issue. Review of Systems Constitutional: reports: Reviewed and negative Eyes: reports: Reviewed and negative Throat: reports: Reviewed and negative Cardiac: reports: Reviewed and negative Respiratory: reports: Reviewed and negative PD PAST MEDICAL HISTORY - Past Medical History Cardiovascular: None Respiratory: None Neuro: Fainting, Other Endocrine/Autoimmune: HyPERthyroidism GI: Hemorrhoids, Other PRACTICING UROLOGIST: None : None HEENT: None Psych: Depression, Anxiety Musculoskeletal: None Derm: None - Past Surgical History Past Surgical History: Yes General: Appendectomy, Other /PRACTICING UROLOGIST: section, Hysterectomy - Present Medications Home Medications: Ambulatory Orders Medication Instructions Recorded Confirmed Gabapentin [Neurontin] 300 mg PO TID 09/19/20 07/08/21 Escitalopram [Lexapro] 10 mg PO DAILY 02/16/21 07/08/21 Trazodone HCl 100 mg QPM 04/24/21 07/08/21 methIMAzole [Methimazole] 10 mg PO DAILY 04/25/21 07/08/21 diazePAM [Valium] 10 mg PO TID PRN 07/08/21 07/08/21 Ibuprofen [Motrin] 800 mg PO Q8H PRN #20 tablet 09/17/21 Oxycodone HCl/Acetaminophen 1 - 2 each PO Q6H PRN #14 tablet 09/17/21 [Percocet 5-325 mg Tablet] predniSONE [Deltasone] 20 mg PO [id number] #21 tab 09/17/21 - Allergies Allergies/Adverse Reactions: Allergies Allergy/AdvReac Type Severity Reaction Status Date / Time morphine Allergy Respiratory Verified 09/17/21 13:13 - Social History Does the pt smoke?: No Smoking Status: Current every day smoker Does the pt drink ETOH?: Yes Does the pt have substance abuse?: Yes - Immunizations Immunizations are current?: Yes PD ED PE NORMAL - Vitals Vital signs reviewed: Yes - General General: Alert and oriented X 3, Other (She appears uncomfortable and holding the right leg straight.) - Abdomen Abdomen: Normal bowel sounds, Soft, Non tender - Back Back: No CVA TTP, Other (No midline spinal tenderness. She does have some right paralumbar soft tissue tenderness.) - Extremities Extremities: Other (Tingling sensation noted with sensory exam to the right leg diffusely not necessarily following a dermatomal pattern with intact strength and reflexes in the lower extremities.) - Neuro Neuro: Alert and oriented X 3, Normal speech Eye Opening: Spontaneous Motor: Obeys Commands Verbal: Oriented GCS Score: 15 - Psych Psych: Normal mood, Normal affect Results - Vitals Vitals: Vital Signs - 24 hr 09/17/21 13:07 Temperature 36.3 C L Heart Rate 68 Respiratory 14 Rate Blood Pressure 118/71 O2 Saturation 100 Oxygen O2 Source Room air PD MEDICAL DECISION MAKING - ED course ED course: This patient has seemingly uncomplicated musculoskeletal back pain. The patient has no "red flags." Specifically denies IV drug use, fevers, incontinence, saddle anesthesia. Spinal epidural abscess was considered, given that the patient has no fever, is not diabetic, has no spinal tenderness, does not use IV drugs, and has no bilateral neurologic symptoms, the diagnosis of spinal epidural abscess is considered exceedingly unlikely. Departure - Departure Disposition: 01 Home, Self Care Clinical Impression: Sciatica Qualifiers: Laterality: right Qualified Code(s): M54.31 - Sciatica, right side Condition: Good Record reviewed to determine appropriate education?: Yes Instructions: ED Sciatica Prescriptions: predniSONE [Deltasone] 20 mg PO [id number] #21 tab Ibuprofen [Motrin] 800 mg PO Q8H PRN #20 tablet PRN Reason: PAIN &/OR FEVER Oxycodone HCl/Acetaminophen [Percocet 5-325 mg Tablet] 1 - 2 each PO Q6H PRN #14 tablet PRN Reason: pain Comments: I sent your prescriptions electronically to [facility] in [place]. Return for new or worsening symptoms. Follow-up with your primary care physician, next available appointment. I am prescribing a short course of narcotic pain medication for you. These are potentially dangerous and addictive medications that should be used carefully. These medications may constipate you. Take an nqna-oxt-pprlkol stool softener (docusate) twice daily with plenty of water while taking these medications. If you go 24 hours without a bowel movement, take ymfo-wew-uhgsbao miralax, per package instructions. Do not drink or drive while taking these medications. If you received narcotic or sedating medications while in the emergency departm ent, do not drive for 24 hours. Store this medication in a safe, secure place and out of reach of children. It is a violation of federal law to give or sell this medication to another person or to use in a manner other than prescribed. The ED will not refill narcotic prescriptions, including prescriptions lost or stolen. To dispose of unwanted medications: 1. [facility] at [address] in [place] has a medication drop box. They accept prescription medications (in pill form) Friday through Friday 9:00 a.m. to 5:00 p.m. 2. The [facility] accepts prescription medications (in pill form only) for disposal year round. Call for more information. 3. Contact the [facility] for the next [facility] sponsored prescription drug collection event. , [phone], or [phone]; Note that many narcotic pain relievers also contain Tylenol/acetaminophen. Please ensure that your total dose of acetaminophen from all sources does not exceed 3 g (3000 mg) per day. Forms: Activity restrictions
== END 2021-09-17 13:42 | disposition home or self-care (01) ==
LOC: ED 12:59
DX: M54.31 Sciatica, right side (principal); F17.200 Nicotine dependence, unspecified, uncomplicated
CPT/HCPCS: 96372; 99283; A9270; J7512

== ENCOUNTER 2021-10-17 08:00 | Outpatient (CLI) | payer OTHER ==
[2021-10-17 15:22] LABS: ALBUMIN/GLOBULIN RATIO 1.5 (1.0-2.2); BILIRUBIN,TOTAL 0.7 mg/dL (0.2-1.0); CALCIUM 9.2 mg/dL (8.5-10.3); CREATININE 0.6 mg/dL (0.4-1.0); MAGNESIUM 1.8 mg/dL (1.7-2.8); POTASSIUM 4.1 mmol/L (3.5-5.0); TOTAL PROTEIN 6.6 g/dL (6.7-8.2)
[2021-10-17 15:31] LABS: T4 (THYROXINE) 7.36 ug/dL (6.09-12.23)
[2021-10-17 15:35] LABS: THYROID STIMULATING HORMONE 0.14 uIU/mL (0.34-5.60)
== END 2021-10-17 23:59 | disposition home or self-care (01) ==
LOC: LAB.S 08:00
PROVIDERS: ATTEND Physician Assistant Medical
DX: E05.90 Thyrotoxicosis, unspecified without thyrotoxic crisis or storm (principal); R79.9 Abnormal finding of blood chemistry, unspecified
CPT/HCPCS: 36415; 80053; 83735; 84436; 84443; 84480

== ENCOUNTER 2021-10-25 16:46 | Outpatient (CLI) | payer OTHER ==
--- NOTE | 2021-10-26 11:42 | Ultrasound Report ---
PROCEDURE: Head or Neck Soft Tissue INDICATIONS: HYPERTHYROIDISM TECHNIQUE: Real time scanning was performed of the neck region of interest, with image documentation . COMPARISON: None. FINDINGS: The thyroid gland is mildly enlarged. The right thyroid lobe measures 1.5 x 1.6 x 5.6 cm. T he left thyroid lobe measures 1.2 x 1.4 x 4.6 cm. The isthmus measures 0.4 cm in thickness. The entir e thyroid is mildly heterogenous and hyperechoic with mildly increased Doppler blood flow signal. The re is no discrete thyroid nodule or mass. IMPRESSION: Mildly enlarged and heterogeneously hyperechoic thyroid with increased Doppler blood flow signal. In the appropriate clinical setting the findings would be consistent with Graves' disease. Reviewed by: Vito Bo MD on 10/26/2021 11:41 AM PDT Approved by: Vito Bo MD on 10/26/2021 11:41 AM PDT Station ID: [id number]
== END 2021-10-25 16:47 | disposition home or self-care (01) ==
LOC: DI 16:46
PROVIDERS: ATTEND Registered Nurse
DX: E05.90 Thyrotoxicosis, unspecified without thyrotoxic crisis or storm (principal); E01.0 Iodine-deficiency related diffuse (endemic) goiter

== ENCOUNTER 2021-11-10 11:25 | Outpatient (CLI) | payer OTHER | END 2021-11-10 11:26 | disposition critical access hospital (66) | LOC: EMS 11:25 | DX: R55 Syncope and collapse (principal) | CPT/HCPCS: A0425; A0429 ==

== ENCOUNTER 2021-11-17 20:31 | Emergency (ER) | payer OTHER ==
--- OUTSIDE RECORDS SUMMARY | 2021-11-17 20:40 | EXTERNAL MEDICAL SUMMARY RPT | Continuity of Care Document ---
:1985 Author Organization [facility] Address [address] [place] [address] Phone Allergies No information. Encounters No information. Functional Status No information. Immunizations No information. Medications date description facility [id number]+0000 esomeprazole magnesium All 79781325195291+0000 propranolol All 89838418586109+0000 ondansetron All 03775334252077+0000 oxycodone-acetaminophen All 05415927723565+0000 oxycodone-acetaminophen All 28562995938065+0000 dicyclomine All 24887270549528+0000 prednisone All 81714951084026+0000 prednisone All 59971681623922+0000 oxycodone-acetaminophen All 33306734236972+0000 oxycodone-acetaminophen All 28696215455857+0000 methimazole All 86134328448174+0000 lamotrigine All 90950475739094+0000 ondansetron All 74999050417594+0000 prednisone All 76264543300981+0000 prednisone All 24854744451851+0000 methimazole All 06778061372901+0000 lamotrigine All 85962799847476+0000 esomeprazole magnesium All 21118861216410+0000 propranolol All 28573119656719+0000 dicyclomine All Problems No information. Procedures date description facility [id number]+0000 Visit Code Hold All 33223174588556+0000 Visit Code Hold All 86291041219318+0000 COMPREHENSIVE METABOLIC PANEL All 77135074869802+0000 COMPREHENSIVE METABOLIC PANEL All 79163191665530+0000 Thyroid Panel (T-3/T-4/TSH) All 29528995242382+0000 TRIIODOTHYRONINE (Free T3) All 27003300932908+0000 CBC W/Diff/Plt All 68602728120251+0000 EKG All 10509633889721+0000 TSH WITH REFLEX TO FT4 All 67145056403529+0000 Magnesium All Results/Labs No information. Social History date description facility 88660752191338+0000 Former smoker All +0000 Former smoker All +0000 Former smoker All Vital Signs date measurement value units +0000 BMI BMI 22.34 kg/m2 +0000 BP_diastolic BP_diastolic 71 mm[H g] +0000 BP_systolic BP_systolic 104 mm[Hg] +0000 heart_rate heart_rate 91 /min +0000 height_metric height_metric 152.4 cm +0000 height_standard height_standard 60 in +0000 respiration_rate respiration_rate 15 /min +0000 temperature_metric temperature_metric 36.39 C +0000 temperature_standard temperature_standard 9 7.5 F +0000 weight_metric weight_metric 51.71 kg +0000 weight_standard weight_standard 114 lb
[2021-11-17 21:31] LABS: BASOPHILS # (AUTO) 0.1 10^3/uL (0.0-0.1); BASOPHILS % (AUTO) 0.9 %; EOSINOPHILS # (AUTO) 0.4 10^3/uL (0.0-0.7); EOSINOPHILS % (AUTO) 3.5 %; HCT - HEMATOCRIT 36.8 % (37.0-47.0); HGB - HEMOGLOBIN 12.6 g/dL (12.0-16.0); LYMPHOCYTES # (AUTO) 3.7 10^3/uL (1.5-3.5); LYMPHOCYTES % (AUTO) 37.1 %; MEAN CORPUSCULAR HEMOGLOBIN 32.5 pg (27.0-31.0); MEAN CORPUSCULAR HGB CONC 34.2 g/dL (32.0-36.0); MEAN CORPUSCULAR VOLUME 94.8 fL (81.0-99.0); MEAN PLATELET VOLUME 10.8 fL (7.9-10.8); MONOCYTES # (AUTO) 0.7 10^3/uL (0.0-1.0); MONOCYTES % (AUTO) 7.1 %; NEUTROPHILS # (AUTO) 5.2 10^3/uL (1.5-6.6); NEUTROPHILS % (AUTO) 51.1 %; PLT - PLATELET COUNT 221 10^3/uL (130-450); RED BLOOD COUNT 3.88 10^6/uL (4.20-5.40); RED CELL DISTRIBUTION WIDTH 11.7 % (12.0-15.0); WHITE BLOOD COUNT 10.1 x10^3/uL (4.8-10.8)
--- NOTE | 2021-11-17 21:31 | ED Physician Documentation ---
PD HPI CHEST PAIN - Stated complaint Stated Complaint: CHEST PX,DIZZY - Chief complaint Chief Complaint: General - History obtained from History obtained from: Patient - History of Present Illness Timing - onset: How many hours ago, Today Timing - details: Gradual onset Pain level now: 7 Quality: Tightness Location: Substernal Improved by: Rest Worsened by: Exertion Associated symptoms: Shortness of air, Nausea. No: Vomiting Recently seen: Emergency Dept (T+R last week for syncope; tonight is patient's tenth [facility] ED visit over past 12 months) - Additional information Additional information: c/o chest tightness, dizziness, nausea, episodic blurry vision, generalized abdominal cramping. symptoms began earlier this afternoon. Review of Systems Constitutional: denies: Fever, Chills, Sweats Eyes: reports: Decreased vision (intermittent bilateral blurry vision) Cardiac: reports: Chest pain / pressure. denies: Palpitations, Pedal edema, Calf pain Respiratory: denies: Dyspnea, Cough, Hemoptysis, Wheezing GI: reports: Abdominal Pain, Nausea. 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: None : None HEENT: None Psych: Depression, Anxiety Musculoskeletal: None Derm: None - Past Surgical History Past Surgical History: Yes General: Appendectomy, Other /SUPPLY AND DISTRIBUTION MANAGER: section, Hysterectomy - Present Medications Home Medications: Ambulatory Orders Medication Instructions Recorded Confirmed Gabapentin [Neurontin] 300 mg PO TID 09/19/20 07/08/21 Escitalopram [Lexapro] 10 mg PO DAILY 02/16/21 07/08/21 Trazodone HCl 100 mg QPM 04/24/21 07/08/21 methIMAzole [Methimazole] 10 mg PO DAILY 04/25/21 07/08/21 diazePAM [Valium] 10 mg PO TID PRN 07/08/21 07/08/21 Ibuprofen [Motrin] 800 mg PO Q8H PRN #20 tablet 09/17/21 Oxycodone HCl/Acetaminophen 1 - 2 each PO Q6H PRN #14 tablet 09/17/21 [Percocet 5-325 mg Tablet] predniSONE [Deltasone] 20 mg PO [id number] #21 tab 09/17/21 - Allergies Allergies/Adverse Reactions: Allergies Allergy/AdvReac Type Severity Reaction Status Date / Time morphine Allergy Respiratory Verified 11/17/21 20:38 - Social History Does the pt smoke?: No Smoking Status: Current every day smoker Does the pt drink ETOH?: Yes Does the pt have substance abuse?: Yes - Immunizations Immunizations are current?: Yes PD ED PE NORMAL - Vitals Vital signs reviewed: Yes - General General: Alert and oriented X 3, Well developed/nourished, Other (no eye contact; keeps eyes closed throughout H+P except briefly when asked to open eyes for pupil/EOM exam) - HEENT HEENT: PERRL, EOMI, Moist mucous membranes - Neck Neck: Supple, no meningeal sign - Cardiac Cardiac: RRR, No murmur - Respiratory Respiratory: No respiratory distress, Clear bilaterally - Abdomen Abdomen: Soft, Non tender, Non distended - Derm Derm: Normal color, Warm and dry - Extremities Extremities: No edema - Neuro Neuro: Alert and oriented X 3, aligning inspector 2-12 intact, No motor deficit, No sensory deficit, Normal speech Eye Opening: Spontaneous Motor: Obeys Commands Verbal: Oriented GCS Score: 15 Results - Vitals Vitals: Vital Signs - 24 hr 11/17/21 11/17/21 11/18/21 20:32 22:38 00:00 Temperature 36.1 C L Heart Rate 61 71 67 Respiratory 18 23 22 Rate Blood Pressure 128/88 H 134/105 H 116/87 H O2 Saturation 100 99 99 11/18/21 00:31 Temperature Heart Rate 67 Respiratory 21 Rate Blood Pressure 116/87 H O2 Saturation 99 Oxygen O2 Source Room air - EKG (time done) No standard instances Rate: Rate (enter#) (66) Rhythm: NSR [place]: Normal Intervals: Normal [place] QRS: Normal Ischemia: Normal ST segments - Labs Labs: Laboratory Tests 11/17/21 11/17/21 11/17/21 20:42 21:02 21:02 WBC 10.1 RBC 3.88 L Hgb 12.6 Hct 36.8 L MCV 94.8 MCH 32.5 H MCHC 34.2 RDW 11.7 L Plt Count 221 MPV 10.8 Neut # (Auto) 5.2 Lymph # (Auto) 3.7 H [place] # (Auto) 0.7 Eos # (Auto) 0.4 Baso # (Auto) 0.1 Absolute Nucleated RBC 0.00 Nucleated RBC % 0.0 Sodium 137 Potassium 4.2 Chloride 102 Carbon Dioxide 31 Anion Gap 4.0 L BUN 9 Creatinine 0.6 Estimated GFR (MDRD) 113 Glucose 96 Calcium 9.1 Total Bilirubin 0.2 AST 36 ALT 19 Alkaline Phosphatase 41 L Troponin I High Sens < 2.3 L Total Protein 6.7 Albumin 4.1 Globulin 2.6 Albumin/Globulin Ratio 1.6 Lipase 31 TSH Free T4 Free T3 pg/mL Urine Color Urine Clarity Urine pH Ur Specific [place] Urine Protein Urine Glucose (UA) Urine Ketones Urine Occult Blood Urine Nitrite Urine Bilirubin Urine Urobilinogen Ur Leukocyte Esterase Ur Microscopic Review Urine Culture Comments Urine HCG, Qual 11/17/21 11/17/21 21:02 23:32 WBC RBC Hgb Hct MCV MCH MCHC RDW Plt Count MPV Neut # (Auto) Lymph # (Auto) [place] # (Auto) Eos # (Auto) Baso # (Auto) Absolute Nucleated RBC Nucleated RBC % Sodium Potassium Chloride Carbon Dioxide Anion Gap BUN Creatinine Estimated GFR (MDRD) Glucose Calcium Total Bilirubin AST ALT Alkaline Phosphatase Troponin I High Sens Total Protein Albumin Globulin Albumin/Globulin Ratio Lipase TSH 0.63 Free T4 0.86 Free T3 pg/mL 2.87 Urine Color YELLOW Urine Clarity CLEAR Urine pH 6.5 Ur Specific [place] 1.015 Urine Protein NEGATIVE Urine Glucose (UA) NEGATIVE Urine Ketones NEGATIVE Urine Occult Blood NEGATIVE Urine Nitrite NEGATIVE Urine Bilirubin NEGATIVE Urine Urobilinogen 0.2 (NORMAL) Ur Leukocyte Esterase NEGATIVE Ur Microscopic Review NOT INDICATED Urine Culture Comments NOT INDICATED Urine HCG, Qual NEGATIVE - Rads (name of study) chest xray Radiology: Prelim report reviewed, See rad report PD MEDICAL DECISION MAKING - ED course Complexity details: reviewed old records, reviewed results, re-evaluated patient, considered differential, d/w patient ED course: no concerning findings on EKG, chest xray, blood tests (including hs-cTn and TSH, T3, T4). She is PERC negative. Results reviewed with patient. We discussed that the cause of her symptoms is not apparent at this time but that further testing in the ER or inpatient is not indicated at this time. She expresses understanding and says she is comfortable with d/c home. Return precautions discussed. Departure - Departure Disposition: Home, Self Care Clinical Impression: Chest pain Qualifiers: Chest pain type: unspecified Qualified Code(s): R07.9 - Chest pain, unspecified Condition: Good Instructions: ED Chest Pain Atypical Unkn Cause Follow-Up: Analia Sequeira ARNP [Primary Care Provider] - Comments: The results of tonight's tests are unremarkable. There are no concerning findings on chest xray, EKG, blood tests. The blood tests included thyroid tests (TSH, T3, T4) as well as a cardiac enzyme test (troponin), and these were also normal. The cause of your symptoms is not apparent at this time. Follow up with your primary care provider , next available appointment Forms: Activity restrictions Discharge Date/Time: 11/18/21 00:31
[2021-11-17 21:47] LABS: ALBUMIN 4.1 g/dL (3.2-5.5); ALBUMIN/GLOBULIN RATIO 1.6 (1.0-2.2); BILIRUBIN,TOTAL 0.2 mg/dL (0.2-1.0); CALCIUM 9.1 mg/dL (8.5-10.3); CREATININE 0.6 mg/dL (0.4-1.0); POTASSIUM 4.2 mmol/L (3.5-5.0); TOTAL PROTEIN 6.7 g/dL (6.7-8.2)
[2021-11-17 21:55] LABS: THYROID STIMULATING HORMONE 0.63 uIU/mL (0.34-5.60)
[2021-11-17 21:57] LABS: FREE T3 2.87 pg/mL (2.5-3.9); FREE T4 (FREE THYROXINE) 0.86 ng/dL (0.58-1.64)
--- NOTE | 2021-11-17 23:19 | XRAY Report ---
PROCEDURE: Chest 2 View X-Ray INDICATIONS: chest pain TECHNIQUE: 2 view(s) of the chest. COMPARISON: None. FINDINGS: Surgical changes and devices: None. Lungs and pleura: No pleural effusions or pneumothorax. Lungs are clear. Mediastinum: Mediastinal contours are normal. Heart size is normal. Bones and chest wall: No suspicious bony abnormalities. Soft tissues appear unremarkable. IMPRESSION: Normal for age, source of current symptoms is not seen. Reviewed by: Gregor Whitfield MD on 11/17/2021 11:18 PM PDT Approved by: Gregor Whitfield MD on 11/17/2021 11:18 PM PDT Station ID: [id number]
[2021-11-17 23:51] LABS: BILIRUBIN,URINE NEGATIVE (NEGATIVE); GLUCOSE, URINE (UA) NEGATIVE (NEGATIVE); KETONES,URINE (UA) NEGATIVE (NEGATIVE); LEUKOCYTE ESTERASE, URINE NEGATIVE (NEGATIVE); NITRITE,URINE NEGATIVE (NEGATIVE); OCCULT BLOOD,URINE NEGATIVE (NEGATIVE); PH,URINE 6.5 PH (5.0-7.5); PROTEIN,URINE NEGATIVE (NEGATIVE); UROBILINOGEN,URINE 0.2 (NORMAL) E.U./dL (NORMAL)
[2021-11-17 23:54] LABS: CLARITY,URINE CLEAR (CLEAR); HCG UR QUAL NEGATIVE
[2021-11-18 00:08] VITALS: BP 116/87
== END 2021-11-18 00:31 | disposition home or self-care (01) ==
LOC: ED 20:31
DX: R07.9 Chest pain, unspecified (principal); E05.90 Thyrotoxicosis, unspecified without thyrotoxic crisis or storm; F17.200 Nicotine dependence, unspecified, uncomplicated
CPT/HCPCS: 36415; 80053; 81001; 81003; 81025; 83690; 84439; 84443; 84481; 84484; 85025; 87086; 93005; 99284

== ENCOUNTER 2022-02-22 10:27 | Outpatient (CLI) | payer OTHER | END 2022-02-22 10:28 | disposition critical access hospital (66) | LOC: EMS 10:27 | DX: R55 Syncope and collapse (principal); R07.9 Chest pain, unspecified; I49.9 Cardiac arrhythmia, unspecified | CPT/HCPCS: A0425; A0429 ==

== ENCOUNTER 2022-02-22 10:34 | Emergency (ER) | payer OTHER ==
[2022-02-22 10:44] VITALS: BP 109/79
--- NOTE | 2022-02-22 10:49 | ED Physician Documentation ---
PD HPI SYNCOPE - Stated complaint Stated Complaint: SEIZURE - Chief complaint Chief Complaint: Neuro - History obtained from History obtained from: Patient, EMS - History of Present Illness Witnessed: Witnessed Timing - onset: How many minutes ago Duration: Minutes (one) Preceding symptoms: Nausea / vomiting, Light headed. No: Headache, Chest pain, Palpitations, Abdominal pain Associated symptoms: No: Seizure (no report to EMS of any seizure like movements seen.) Contributing factors: No: Recent med change, Decreased PO intake, Just stood up (had been standing at work for awhile.) Similar symptoms before: No diagnosis (has had several of these fainting episodes without seizure activity, no associated labs/eCg/rhythm strips abnormal. PCP has [facility] Ziopatch[facility] and there is upcoming referral to [facility].) Recently seen: Clinic, Emergency Dept Review of Systems Constitutional: denies: Fever, Chills Nose: denies: Rhinorrhea / runny nose, Congestion Throat: denies: Sore throat Cardiac: denies: Chest pain / pressure Respiratory: denies: Cough GI: denies: Abdominal Pain, Vomiting, Diarrhea Skin: denies: Abrasion (s), Laceration (s) Neurologic: reports: Syncope. denies: Seizure, Altered mental status, Headache PD PAST MEDICAL HISTORY - Past Medical History Cardiovascular: None Respiratory: None Neuro: Fainting, Other Endocrine/Autoimmune: HyPERthyroidism GI: Hemorrhoids, Other HADOOP ADMIN: None : None HEENT: None Psych: Depression, Anxiety Musculoskeletal: None Derm: None - Past Surgical History Past Surgical History: Yes General: Appendectomy, Other /HADOOP ADMIN: section, Hysterectomy - Present Medications Home Medications: Ambulatory Orders Medication Instructions Recorded Confirmed Gabapentin [Neurontin] 300 mg PO TID 09/19/20 07/08/21 Escitalopram [Lexapro] 10 mg PO DAILY 02/16/21 07/08/21 Trazodone HCl 100 mg QPM 04/24/21 07/08/21 methIMAzole [Methimazole] 10 mg PO DAILY 04/25/21 07/08/21 diazePAM [Valium] 10 mg PO TID PRN 07/08/21 07/08/21 Ibuprofen [Motrin] 800 mg PO Q8H PRN #20 tablet 09/17/21 Oxycodone HCl/Acetaminophen 1 - 2 each PO Q6H PRN #14 tablet 09/17/21 [Percocet 5-325 mg Tablet] predniSONE [Deltasone] 20 mg PO [id number] #21 tab 09/17/21 - Allergies Allergies/Adverse Reactions: Allergies Allergy/AdvReac Type Severity Reaction Status Date / Time morphine Allergy Respiratory Verified 02/22/22 10:44 - Social History Does the pt smoke?: No Smoking Status: Current every day smoker Does the pt drink ETOH?: Yes Does the pt have substance abuse?: Yes - Immunizations Immunizations are current?: Yes PD ED PE NORMAL - Vitals Vital signs reviewed: Yes - General General: Alert and oriented X 3, No acute distress, Well developed/nourished - HEENT HEENT: Atraumatic, Moist mucous membranes, Pharynx benign - Neck Neck: Supple, no meningeal sign, No adenopathy - Cardiac Cardiac: RRR, No murmur - Respiratory Respiratory: Clear bilaterally - Abdomen Abdomen: Normal bowel sounds, Soft, Non distended - Back Back: No CVA TTP - Derm Derm: Normal color, Warm and dry - Extremities Extremities: No edema, No calf tenderness / cord - Neuro Neuro: Alert and oriented X 3, No motor deficit, No sensory deficit, Normal speech Results - Vitals Vitals: Vital Signs - 24 hr 02/22/22 10:40 Temperature 37.2 C Heart Rate 83 Respiratory 24 Rate Blood Pressure 109/79 O2 Saturation 99 Oxygen O2 Source Room air - EKG (time done) 10:55 Rate: Rate (enter#) (81) Rhythm: NSR [place]: Normal Intervals: Normal IN QRS: Normal Ischemia: Normal ST segments. No: ST elevation c/w ischemia, ST depression Compare to prior EKG: Unchanged from prior EKG - Labs Labs: Laboratory Tests 02/22/22 02/22/22 02/22/22 10:45 10:45 10:45 Sodium 137 Potassium 3.9 Chloride 105 Carbon Dioxide 23 Anion Gap 9.0 BUN 9 Creatinine 0.8 Estimated GFR (MDRD) 81 L Glucose 92 Calcium 9.8 Magnesium 1.9 Total Bilirubin 0.5 AST 33 ALT 21 Alkaline Phosphatase 44 Troponin I High Sens < 2.3 L Total Protein 7.1 Albumin 4.5 Globulin 2.6 Albumin/Globulin Ratio 1.7 Lipase 40 Prolactin 14.70 Serum HCG, Qual 02/22/22 10:45 Sodium Potassium Chloride Carbon Dioxide Anion Gap BUN Creatinine Estimated GFR (MDRD) Glucose Calcium Magnesium Total Bilirubin AST ALT Alkaline Phosphatase Troponin I High Sens Total Protein Albumin Globulin Albumin/Globulin Ratio Lipase Prolactin Serum HCG, Qual NEGATIVE PD MEDICAL DECISION MAKING - ED course Complexity details: re-evaluated patient (Patient is feeling improved and would like to be discharged. ), considered differential (recurring syncopal episodes, no described seizure activity today nor in prior ER reports. ), d/w patient Departure - Departure Disposition: 01 Home, Self Care Clinical Impression: Syncopal episodes Qualifiers: Syncope type: unspecified Qualified Code(s): R55 - Syncope and collapse Condition: Stable Record reviewed to determine appropriate education?: Yes Instructions: ED Fainting Unkn Cause Comments: Unclear the cause of your fainting episode. Follow-up with your specialist as planned. Your primary care could actually order a wearable heart monitor and does not need to wait for the [place] line attendant for that per se. Stay well-hydrated otherwise. No signs of acute heart abnormality today based on your EKG, troponin blood test, heart monitor. Your electrolytes and blood sugar are good. That was the extent of the testing today since you have had significant testing on previous visits. Forms: Activity restrictions Discharge Date/Time: 02/22/22 15:45
[2022-02-22] MEDS ORDERED: SODIUM CHLORIDE 0.9% 1,000 ML IV STA (10:51)
[2022-02-22 11:39] LABS: ALBUMIN 4.5 g/dL (3.2-5.5); ALBUMIN/GLOBULIN RATIO 1.7 (1.0-2.2); BILIRUBIN,TOTAL 0.5 mg/dL (0.2-1.0); CALCIUM 9.8 mg/dL (8.5-10.3); CREATININE 0.8 mg/dL (0.4-1.0); MAGNESIUM 1.9 mg/dL (1.7-2.8); POTASSIUM 3.9 mmol/L (3.5-5.0); TOTAL PROTEIN 7.1 g/dL (6.7-8.2)
[2022-02-22 11:47] LABS: HCG,QUALITATIVE BLOOD NEGATIVE
== END 2022-02-22 15:45 | disposition home or self-care (01) ==
LOC: EDUNIT# → ED 10:34
DX: R55 Syncope and collapse (principal); F17.200 Nicotine dependence, unspecified, uncomplicated
CPT/HCPCS: 36415; 80053; 83690; 83735; 84146; 84484; 84703; 93005; 99282; 99284

== ENCOUNTER 2022-03-22 11:24 | Outpatient (CLI) | payer OTHER | END 2022-03-22 11:25 | disposition left against medical advice (07) | LOC: EMS 11:24 | DX: R55 Syncope and collapse (principal) ==

== ENCOUNTER 2022-04-04 13:25 | Emergency (ER) | payer OTHER ==
[2022-04-04] MEDS ORDERED: SODIUM CHLORIDE 0.9% 1,000 ML IV STA (13:54)
--- NOTE | 2022-04-04 14:00 | ED Physician Documentation ---
History of Present Illness - Stated complaint Stated Complaint: SYNCOPAL EPISODES,CHEST PX - Chief complaint Chief Complaint: Cardiac - Additonal information Additional information: 36-year-old female who has a history of dystonia presents to the emergency department for evaluation of a syncopal episode. Per both the patient and her partner at the bedside she was standing in the kitchen speaking to him after she just completed laundry when she suddenly fainted. Patient reports that she was having a stabbing chest pain just prior to fainting. Her took her to the couch and summoned 911. On presentation to the emergency department she is lethargic but able to appropriately answer all questions. She does appear weak. No respiratory distress. No cough nausea or vomiting. No urinary symptoms. She does have some mild left-sided abdominal pain. Patient recently had her Valium dose increased due to the dystonic pain. pt is scheduled for a stress test 04/10/2022 and is followed by Dr. Munguia neurologist with [facility] Review of Systems Constitutional: denies: Fever, Chills Eyes: reports: Reviewed and negative Nose: reports: Reviewed and negative Cardiac: reports: Chest pain / pressure. denies: Palpitations, Pedal edema, Calf pain Respiratory: reports: Reviewed and negative GI: reports: Reviewed and negative : reports: Reviewed and negative PD PAST MEDICAL HISTORY - Past Medical History Cardiovascular: None Respiratory: None Neuro: Fainting, Other Endocrine/Autoimmune: HyPERthyroidism GI: Hemorrhoids, Other NURSE CARE MANAGER: None : None HEENT: None Psych: Depression, Anxiety Musculoskeletal: None Derm: None - Past Surgical History Past Surgical History: Yes General: Appendectomy, Other /NURSE CARE MANAGER: section, Hysterectomy - Present Medications Home Medications: Ambulatory Orders Medication Instructions Recorded Confirmed Gabapentin [Neurontin] 300 mg PO TID 09/19/20 04/04/22 methIMAzole [Methimazole] 5 mg PO TID 04/25/21 04/04/22 diazePAM [Valium] 10 mg PO TID PRN 07/08/21 04/04/22 PARoxetine [Paxil] 10 mg PO DAILY 04/04/22 04/04/22 Propranolol [Inderal] 10 mg PO TID PRN 04/04/22 04/04/22 - Allergies Allergies/Adverse Reactions: Allergies Allergy/AdvReac Type Severity Reaction Status Date / Time morphine Allergy Respiratory Verified 12/08/22 13:32 - Social History Does the pt smoke?: No Smoking Status: Current every day smoker Does the pt drink ETOH?: Yes Does the pt have substance abuse?: Yes - Immunizations Immunizations are current?: Yes PD ED PE NORMAL - General General: Other (Slow to respond). No: Alert and oriented X 3 - HEENT HEENT: Atraumatic, Ears normal, Moist mucous membranes - Cardiac Cardiac: RRR, No murmur - Respiratory Respiratory: No respiratory distress, Clear bilaterally - Abdomen Abdomen: Normal bowel sounds, Soft. No: Non tender (Tender in the left side of the abdomen) - Back Back: No CVA TTP, No spinal TTP - Derm Derm: Normal color, Warm and dry, No rash - Extremities Extremities: No deformity, No tenderness to palpate, Normal ROM s pain - Neuro Neuro: Alert and oriented X 3, machine tender 2-12 intact Eye Opening: Spontaneous Motor: Obeys Commands Verbal: Oriented GCS Score: 15 Results - Vitals Vitals: Vital Signs - 24 hr 04/04/22 04/04/22 04/04/22 13:29 14:37 15:32 Temperature 36.8 C Heart Rate 59 L 62 Heart Rate [ 51 L Sitting] Heart Rate [ 54 L Supine] Respiratory 20 18 Rate Blood Pressure 102/73 110/77 Blood Pressure 133/104 H [Sitting] Blood Pressure 137/98 H [Supine] O2 Saturation 100 100 04/04/22 17:00 Temperature Heart Rate 60 Heart Rate [ Sitting] Heart Rate [ Supine] Respiratory 20 Rate Blood Pressure 119/85 H Blood Pressure [Sitting] Blood Pressure [Supine] O2 Saturation 100 Oxygen O2 Source Room air - EKG (time done) 1341 Rate: Rate (enter#) (62) Rhythm: NSR [place]: Normal Intervals: Normal MI QRS: Normal Ischemia: Normal ST segments Compare to prior EKG: Unchanged from prior EKG Computer interpretation: Agree with computer - Labs Labs: Laboratory Tests 04/04/22 04/04/22 04/04/22 14:00 14:00 14:00 WBC 6.9 RBC 4.06 L Hgb 12.9 Hct 38.6 MCV 95.1 MCH 31.8 H MCHC 33.4 RDW 12.3 Plt Count 200 MPV 10.7 Neut # (Auto) 3.3 Lymph # (Auto) 2.7 [place] # (Auto) 0.4 Eos # (Auto) 0.5 Baso # (Auto) 0.1 Absolute Nucleated RBC 0.00 Nucleated RBC % 0.0 D-Dimer Sodium 135 Potassium 4.1 Chloride 104 Carbon Dioxide 22 Anion Gap 9.0 BUN 8 Creatinine 0.9 Estimated GFR (MDRD) 71 L Glucose 85 Calcium 8.4 L Total Bilirubin 0.3 AST 28 ALT 19 Alkaline Phosphatase 32 L Troponin I High Sens < 2.3 L Total Protein 6.2 L Albumin 3.8 Globulin 2.4 Albumin/Globulin Ratio 1.6 Lipase 45 TSH Free T4 Thyroxine (T4) Serum HCG, Qual Urine Color Urine Clarity Urine pH Ur Specific [place] Urine Protein Urine Glucose (UA) Urine Ketones Urine Occult Blood Urine Nitrite Urine Bilirubin Urine Urobilinogen Ur Leukocyte Esterase Ur Microscopic Review Urine Culture Comments 04/04/22 04/04/22 04/04/22 14:00 14:00 14:00 WBC RBC Hgb Hct MCV MCH MCHC RDW Plt Count MPV Neut # (Auto) Lymph # (Auto) [place] # (Auto) Eos # (Auto) Baso # (Auto) Absolute Nucleated RBC Nucleated RBC % D-Dimer Sodium Potassium Chloride Carbon Dioxide Anion Gap BUN Creatinine Estimated GFR (MDRD) Glucose Calcium Total Bilirubin AST ALT Alkaline Phosphatase Troponin I High Sens Total Protein Albumin Globulin Albumin/Globulin Ratio Lipase TSH 76.33 H Free T4 < 0.25 L Thyroxine (T4) < 0.50 L Serum HCG, Qual NEGATIVE Urine Color Urine Clarity Urine pH Ur Specific [place] Urine Protein Urine Glucose (UA) Urine Ketones Urine Occult Blood Urine Nitrite Urine Bilirubin Urine Urobilinogen Ur Leukocyte Esterase Ur Microscopic Review Urine Culture Comments 04/04/22 04/04/22 14:45 14:58 WBC RBC Hgb Hct MCV MCH MCHC RDW Plt Count MPV Neut # (Auto) Lymph # (Auto) [place] # (Auto) Eos # (Auto) Baso # (Auto) Absolute Nucleated RBC Nucleated RBC % D-Dimer < 200.0 L Sodium Potassium Chloride Carbon Dioxide Anion Gap BUN Creatinine Estimated GFR (MDRD) Glucose Calcium Total Bilirubin AST ALT Alkaline Phosphatase Troponin I High Sens Total Protein Albumin Globulin Albumin/Globulin Ratio Lipase TSH Free T4 Thyroxine (T4) Serum HCG, Qual Urine Color YELLOW Urine Clarity CLEAR Urine pH 7.0 Ur Specific [place] 1.015 Urine Protein NEGATIVE Urine Glucose (UA) NEGATIVE Urine Ketones NEGATIVE Urine Occult Blood NEGATIVE Urine Nitrite NEGATIVE Urine Bilirubin NEGATIVE Urine Urobilinogen 0.2 (NORMAL) Ur Leukocyte Esterase NEGATIVE Ur Microscopic Review NOT INDICATED Urine Culture Comments NOT INDICATED - Rads (name of study) cxr Radiology: Final report received (No acute cardiopulmonary findings) Ct abd Radiology: Final report received (No acute abdominal findings) PD MEDICAL DECISION MAKING - ED course Complexity details: reviewed results, re-evaluated patient, considered differential, d/w patient ED course: 36-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 She has presented to this emergency department a number of times since September for similar. She also has a history of hyperthyroidism for which she takes methimazole 5 mg 3 times a day. Patient has been evaluated for the syncope multiple times with no acute etiology found. She is currently scheduled to see a regional sales leader on the of this month to undergo stress testing and future Holter monitor placement. Here in the emergency department she presented lethargic and weak though she was not on focal. Her vital signs showed no acute worrisome abnormalities. We did obtain a CBC that showed no worrisome findings such as leukocytosis or anemia. Her electrolytes were also evaluated with no acute worrisome findings. EKG was nonischemic troponin was negative. Chest x-ray was without acute findings to suggest pleural effusion pneumonia or enlarged mediastinum. Given the history of hyperthyroidism we did obtain a TSH which was markedly elevated at 76 and her T4 was 0.5. This case was discussed with the patient's emergency communications officer Dr. Rocha through [facility]. He was able to review his chart notes which indicated patient had antibody testing that was likely negative for Graves' disease. He suspects that the initial hyperthyroidism was likely a viral thyroiditis. At this stage he would recommend discontinuing the methimazole entirely and having her TSH rechecked in 2 to 3 weeks. I suspect that the profound hypothyroidism at this time is the cause of her generalized weakness. We did attempt to do orthostatics however the patient did not tolerate them as she was too weak to stand. Here in the emergency department we discussed the CT chest x-ray and laboratory findings at the bedside with the patient. Though she is profoundly weak she does not desire hospitalization and would like to go home. We discussed that her family will likely need to help her at home over the next few days given the half-life of methimazole but that with improving thyroid function we would expect the weakness to improve. Clinically she does not present as myexdema coma She is discharged home in stable condition with recommendation to follow closely with endocrinology. Otherwise emergent return precautions discussed Departure - Departure Disposition: 01 Home, Self Care Clinical Impression: Syncope and collapse, Hypothyroidism (acquired) Condition: Stable Record reviewed to determine appropriate education?: Yes Comments: You are seen today in the emergency department because you had a sudden fainting episode at home and you are generally weak. Here in the emergency department your CBC and electrolytes were essentially normal. Your EKG and chest x-ray were normal. The CT of your abdomen was normal. We did complete thyroid testing and found that your TSH was 76 and your T4 was 0.5. This indicates that your methimazole has pushed you into hypothyroidism. I discussed this case with your emergency communications officer Dr. Rocha. He would like you to stop the methimazole entirely and not take any further doses. We would expect that as the methimazole wears away and your thyroid function improves so does your weakness. He would like you to call his office tomorrow to arrange follow-up and labs to be repeated in the next 2 to 3 weeks. If you find that your symptoms are worsening, you develop any fevers have uncontrolled vomiting then please return immediately to the ER for second evaluation.
[2022-04-04 14:10] LABS: BASOPHILS # (AUTO) 0.1 10^3/uL (0.0-0.1); BASOPHILS % (AUTO) 0.9 %; EOSINOPHILS # (AUTO) 0.5 10^3/uL (0.0-0.7); HCT - HEMATOCRIT 38.6 % (37.0-47.0); HGB - HEMOGLOBIN 12.9 g/dL (12.0-16.0); LYMPHOCYTES # (AUTO) 2.7 10^3/uL (1.5-3.5); LYMPHOCYTES % (AUTO) 39.2 %; MEAN CORPUSCULAR HEMOGLOBIN 31.8 pg (27.0-31.0); MEAN CORPUSCULAR HGB CONC 33.4 g/dL (32.0-36.0); MEAN CORPUSCULAR VOLUME 95.1 fL (81.0-99.0); MEAN PLATELET VOLUME 10.7 fL (7.9-10.8); MONOCYTES # (AUTO) 0.4 10^3/uL (0.0-1.0); MONOCYTES % (AUTO) 5.5 %; NEUTROPHILS # (AUTO) 3.3 10^3/uL (1.5-6.6); NEUTROPHILS % (AUTO) 47.1 %; PLT - PLATELET COUNT 200 10^3/uL (130-450); RED BLOOD COUNT 4.06 10^6/uL (4.20-5.40); RED CELL DISTRIBUTION WIDTH 12.3 % (12.0-15.0); WHITE BLOOD COUNT 6.9 x10^3/uL (4.8-10.8)
--- NOTE | 2022-04-04 14:14 | XRAY Report ---
PROCEDURE: Chest 1 View X-Ray INDICATIONS: Chest Pain TECHNIQUE: One view of the chest was acquired. COMPARISON: None. FINDINGS: Surgical changes and devices: None. Lungs and pleura: No pleural effusions or pneumothorax. Lungs are clear. Mediastinum: Mediastinal contours appear normal. Heart size is normal. Bones and chest wall: No suspicious bony lesions. Overlying soft tissues appear unremarkable. IMPRESSION: No acute finding. Reviewed by: Vito Bo MD on 04/04/2022 1:12 PM [facility] Approved by: Vito Bo MD on 04/04/2022 1:12 PM [facility] Station ID: [id number]
[2022-04-04 14:23] LABS: ALBUMIN 3.8 g/dL (3.2-5.5); ALBUMIN/GLOBULIN RATIO 1.6 (1.0-2.2); BILIRUBIN,TOTAL 0.3 mg/dL (0.2-1.0); CALCIUM 8.4 mg/dL (8.5-10.3); CREATININE 0.9 mg/dL (0.4-1.0); POTASSIUM 4.1 mmol/L (3.5-5.0); TOTAL PROTEIN 6.2 g/dL (6.7-8.2)
--- NOTE | 2022-04-04 14:41 | CT Report ---
PROCEDURE: ABDOMEN/PELVIS WO INDICATIONS: fainting; left sided ab pain TECHNIQUE: Noncontrast 5 mm thick sections acquired from the diaphragms to the symphysis. 5 mm coronal and sagi ttal reformats were then performed. For radiation dose reduction, the following was used: automated exposure control, adjustment of mA and/or kV according to patient size. COMPARISON: None. FINDINGS: Image quality: Excellent. ABDOMEN: Lung bases: Lung bases are clear. Heart size is normal. Solid organs: Grossly unremarkable unenhanced liver, spleen, gallbladder, pancreas, and adrenal gland s. No urinary tract calculus. No hydronephrosis or hydroureter. Peritoneum and bowel: No abnormally dilated or thickened loops of bowel. No pericolonic or mesenteric inflammatory change. Nodes and vessels: No retroperitoneal or mesenteric adenopathy by size criteria. Aorta and inferior vena cava are normal in caliber. Miscellaneous: No ventral hernias. PELVIS: Genitourinary: Bladder wall thickness is normal. Uterus and ovaries normal. No pathologic free pelv ic fluid or mass. Miscellaneous: No threshold enlarged pelvic or inguinal lymph node. Bones: No suspicious bony lesions. No vertebral body compression fractures. IMPRESSION: No acute finding. Reviewed by: Vito Bo MD on 04/04/2022 1:40 PM [facility] Approved by: Vito Bo MD on 04/04/2022 1:40 PM [facility] Station ID: [id number]
[2022-04-04 14:55] LABS: HCG,QUALITATIVE BLOOD NEGATIVE
[2022-04-04 15:17] LABS: BILIRUBIN,URINE NEGATIVE (NEGATIVE); GLUCOSE, URINE (UA) NEGATIVE (NEGATIVE); KETONES,URINE (UA) NEGATIVE (NEGATIVE); LEUKOCYTE ESTERASE, URINE NEGATIVE (NEGATIVE); NITRITE,URINE NEGATIVE (NEGATIVE); OCCULT BLOOD,URINE NEGATIVE (NEGATIVE); PROTEIN,URINE NEGATIVE (NEGATIVE); UROBILINOGEN,URINE 0.2 (NORMAL) E.U./dL (NORMAL)
[2022-04-04 15:19] LABS: CLARITY,URINE CLEAR (CLEAR)
[2022-04-04 15:49] LABS: T4 (THYROXINE) < 0.50 ug/dL (6.09-12.23)
[2022-04-04 16:13] LABS: THYROID STIMULATING HORMONE 76.33 uIU/mL (0.34-5.60)
[2022-04-04 17:57] VITALS: BP 113/80
== END 2022-04-04 17:56 | disposition home or self-care (01) ==
LOC: ED 13:25
DX: R55 Syncope and collapse (principal); E03.9 Hypothyroidism, unspecified; F17.200 Nicotine dependence, unspecified, uncomplicated
CPT/HCPCS: 36415; 80053; 81001; 81003; 83690; 84436; 84439; 84443; 84484; 84703; 85025; 85379; 87086; 93005; 96360; 99283

== ENCOUNTER 2022-04-28 01:45 | Emergency (ER) | payer OTHER ==
--- NOTE | 2022-04-28 02:22 | ED Physician Documentation ---
PD HPI SEIZURE - Stated complaint Stated Complaint: seizure, AMS - Chief complaint Chief Complaint: Neuro - History obtained from History obtained from: Patient, Family - History of Present Illness Timing - onset: Enter time (19), Today Witnessed: Witnessed Number of seizures: Multiple (2), Lasted minutes, Recovered between seizure Description of seizure activity: Generalized Injury during seizure: None Associated symptoms: Headache, Nausea / vomiting History of seizures: First seizure Contributing factors: Other (alcohol use tonight) Similar symptoms before: Has not had sx before Recently seen: Emergency Dept (seen 04-04-22 for low thyroid), Other (had stress test done yesterday) - Additional information Additional information: Teresa Pulliam is a 36-year-old female with history of cervical dystonia who has been diagnosed with hyperthyroidism and then while on methimazole developed hypothyroidism recently. She has not had seizure previously. The male accompanying her here this evening indicates that the patient drank two thirds of a bottle of champagne within an hour and appeared intoxicated. She subsequ ently developed some acute vomiting and subsequently to that developed an acute seizure. She had a second seizure about 20 minutes later. Both seizures lasted minutes and the patient recovered partially after the first and has continued to have some postictal symptoms since the second. Review of Systems Constitutional: denies: Fever Eyes: denies: Decreased vision Ears: denies: Ear pain Nose: denies: Rhinorrhea / runny nose, Congestion Throat: denies: Sore throat Cardiac: denies: Chest pain / pressure, Palpitations Respiratory: denies: Dyspnea, Cough GI: reports: Nausea, Vomiting. denies: Abdominal Pain : denies: Dysuria, Frequency Skin: denies: Rash, Lesions, Abrasion (s) Musculoskeletal: reports: Neck pain. denies: Back pain, Extremity pain Neurologic: denies: Generalized weakness, Numbness PD PAST MEDICAL HISTORY - Past Medical History Cardiovascular: None Respiratory: None Neuro: Fainting, Other Endocrine/Autoimmune: HyPERthyroidism GI: Hemorrhoids, Other UNCRATER: None : None HEENT: None Psych: Depression, Anxiety Musculoskeletal: None Derm: None - Past Surgical History Past Surgical History: Yes General: Appendectomy, Other /UNCRATER: section, Hysterectomy - Present Medications Home Medications: Ambulatory Orders Medication Instructions Recorded Confirmed Gabapentin [Neurontin] 300 mg PO TID 09/19/20 04/28/22 diazePAM [Valium] 10 mg PO TID PRN 07/08/21 04/28/22 PARoxetine [Paxil] 10 mg PO DAILY 04/04/22 04/28/22 Propranolol [Inderal] 10 mg PO TID PRN 04/04/22 04/28/22 traZODone [Desyrel] 50 mg PO DAILY 04/28/22 04/28/22 - Allergies Allergies/Adverse Reactions: Allergies Allergy/AdvReac Type Severity Reaction Status Date / Time morphine Allergy Respiratory Verified 04/28/22 02:10 - Social History Does the pt smoke?: No Smoking Status: Current every day smoker Does the pt drink ETOH?: Yes Does the pt have substance abuse?: Yes - Immunizations Immunizations are current?: Yes PD ED PE NORMAL - Vitals Vital signs reviewed: Yes (normal ) - General General: Well developed/nourished, Other (36 y/o female "flopping" her head around with eyes fluttering is able to answer questions but the content is poor. ) - HEENT HEENT: Atraumatic, PERRL, EOMI - Neck Neck: Supple, no meningeal sign, No bony TTP - Cardiac Cardiac: RRR, No murmur - Respiratory Respiratory: No respiratory distress, Clear bilaterally - Abdomen Abdomen: Normal bowel sounds, Soft, Non tender, Non distended, No organomegaly - Back Back: No CVA TTP, No spinal TTP - Derm Derm: Normal color, Warm and dry, No rash - Extremities Extremities: No deformity, No edema - Neuro Neuro: Alert and oriented X 3, reverse unit operator fisherman 2-12 intact, No motor deficit, No sensory deficit, Normal speech Eye Opening: Spontaneous Motor: Obeys Commands Verbal: Confused GCS Score: 14 - Psych Psych: Normal mood, Normal affect Results - Vitals Vitals: Vital Signs - 24 hr 04/28/22 04/28/22 04/28/22 02:11 03:06 05:00 Temperature 37.1 C Heart Rate 71 73 67 Respiratory 20 20 20 Rate Blood Pressure 109/62 103/67 105/76 O2 Saturation 100 100 96 04/28/22 04/28/22 07:00 08:03 Temperature Heart Rate 65 71 Respiratory 18 19 Rate Blood Pressure 96/61 103/64 O2 Saturation 98 98 Oxygen O2 Source Room air - Labs Labs: Laboratory Tests 01/05/2004/28/22 04/28/22 02:09 02:09 02:09 WBC 8.5 RBC 4.32 Hgb 13.8 Hct 40.9 MCV 94.7 MCH 31.9 H MCHC 33.7 RDW 11.5 L Plt Count 191 MPV 11.2 H Neut # (Auto) 4.6 Lymph # (Auto) 2.4 [place] # (Auto) 0.8 Eos # (Auto) 0.5 Baso # (Auto) 0.1 Absolute Nucleated RBC 0.00 Nucleated RBC % 0.0 Sodium 138 Potassium 3.9 Chloride 102 Carbon Dioxide 25 Anion Gap 11.0 BUN 11 Creatinine 0.8 Estimated GFR (MDRD) 81 L Glucose 101 H Calcium 9.4 Total Bilirubin 0.5 AST 23 ALT 18 Alkaline Phosphatase 61 Total Protein 7.6 Albumin 4.4 Globulin 3.2 Albumin/Globulin Ratio 1.4 Lipase 38 TSH 6.31 H Free T4 0.45 L Cortisol Urine Color Urine Clarity Urine pH Ur Specific [place] Urine Protein Urine Glucose (UA) Urine Ketones Urine Occult Blood Urine Nitrite Urine Bilirubin Urine Urobilinogen Ur Leukocyte Esterase Ur Microscopic Review Urine Culture Comments Urine HCG, Qual Urine Opiates Screen Ur Oxycodone Screen Urine Methadone Screen Ur Propoxyphene Screen Ur Barbiturates Screen Ur Tricyclics Screen Ur Phencyclidine Scrn Ur Amphetamine Screen U Methamphetamines Scrn U Benzodiazepines Scrn Urine Cocaine Screen U Cannabinoids Screen Ethyl Alcohol 54.8 04/28/22 04/28/22 02:09 02:58 WBC RBC Hgb Hct MCV MCH MCHC RDW Plt Count MPV Neut # (Auto) Lymph # (Auto) [place] # (Auto) Eos # (Auto) Baso # (Auto) Absolute Nucleated RBC Nucleated RBC % Sodium Potassium Chloride Carbon Dioxide Anion Gap BUN Creatinine Estimated GFR (MDRD) Glucose Calcium Total Bilirubin AST ALT Alkaline Phosphatase Total Protein Albumin Globulin Albumin/Globulin Ratio Lipase TSH Free T4 Cortisol 19.7 Urine Color YELLOW Urine Clarity CLEAR Urine pH 6.0 Ur Specific [place] 1.010 Urine Protein NEGATIVE Urine Glucose (UA) NEGATIVE Urine Ketones NEGATIVE Urine Occult Blood NEGATIVE Urine Nitrite NEGATIVE Urine Bilirubin NEGATIVE Urine Urobilinogen 0.2 (NORMAL) Ur Leukocyte Esterase NEGATIVE Ur Microscopic Review NOT INDICATED Urine Culture Comments NOT INDICATED Urine HCG, Qual NEGATIVE Urine Opiates Screen NEGATIVE Ur Oxycodone Screen NEGATIVE Urine Methadone Screen NEGATIVE Ur Propoxyphene Screen NEGATIVE Ur Barbiturates Screen NEGATIVE Ur Tricyclics Screen NEGATIVE Ur Phencyclidine Scrn NEGATIVE Ur Amphetamine Screen NEGATIVE U Methamphetamines Scrn NEGATIVE U Benzodiazepines Scrn POSITIVE H Urine Cocaine Screen NEGATIVE U Cannabinoids Screen POSITIVE H Ethyl Alcohol - Rads (name of study) CT head Radiology: Prelim report reviewed (unremarkable study), EMP read indepedently (on my read unremarkable ) PD Medical Decision Making - ED course Complexity details: considered differential, d/w patient, d/w family Reviewed Lab Results: I reviewed the patient's laboratory results including complete blood count with normal white blood cell count hematocrit and hemoglobin and platelets. I reviewed the patient's chemistries with normal electrolytes kidney and liver function. Her serum chemistries were concerning for an elevated TSH and low free T4. These values were both better than her priors on 04/04/2022 but were still extremely low. I interpreted this as persistent and significant hypothyroidism And concerning for the patient's presentation and that seizure related to thyroid disease is mostly confined to myxedema coma. Her level of confusion is persistent and her lack of memory has persisted 2 and half hours into the visit. Social Determinants of Health: The patient is and is accompanied today by her who is upset with the urgency of his 's condition and lack of resources at our facility. The patient's is understanding of the constraints we are all placed in and does leave the emergency department to seek refuge in his house as his anger was increasing. Drug Therapy Requiring Monitoring for Toxicity: Patient was placed onto intravenous Synthroid a 200 mcg dose requiring cardiac monitoring for development of tachycardia and atrial fibrillation. ED course: 36-year-old female with a recent history of hyperthyroidism was treated with methimazole eventually ended up being hypothyroid significantly and she was taken off the methimazole. She continues to have low thyroid and today she has had a seizure and has altered mental status. My concern with this patient is for myxedema coma and despite the patient not having hyponatremia or hypothermia I begin more aggressive treatment administering intravenous Synthroid and hydrocortisone. We do not have intravenous T3. Shortly after the patient presented to the emergency department I attempted to contact an label printer at 3:30 in the morning. This proved particularly difficult but I was able to eventually contact an label printer at the [facility]. Dr. Snyder reviewed lab findings, physical exam findings, history of the event and recent visits with me and she felt it was unlikely that the patient had seizure related to hypothyroidism or myxedema coma. Following the consultation with Dr. Hurtado I consulted with Dr. Goyal the neurologist on-call for the patient's neurologist. He indicated that he also felt it unlikely the patient had seizure related to her thyroid. More likely related to substance use with her use of Valium and alcohol. First-time seizure he recommends not placing the patient on anticonvulsant and have her follow-up with Dr. Myers for continued work-up. Departure - Departure Disposition: 01 Home, Self Care Clinical Impression: Seizure, Hypothyroidism (acquired) Condition: Stable Instructions: ED Hypothyroidism, ED Seizure New Onset Unk Cause Follow-Up: NIKKI MYERS MD [Physician No Access] - Comments: Teresa, today it looks like your thyroid functions are still low and the label printer I consulted this morning felt it was likely you would have continued improvement in your thyroid without additional medication. Today we did give you a dose of intravenous Synthroid. The label printer felt it was unlikely your seizure was related to your hypothyroidism. I spoke with Dr. Goyal on-call for Dr. Myers and he also felt it was unlikely that your seizure was related to your thyroid disease. He felt it was more likely related to the alcohol and benzodiazepine use. He recommends you follow-up with Dr. Myers in the coming week for potential further testing. In the mean time the recommendation is to protect yourself from recurrent seizure by avoiding heights, open flames, swimming or bathing alone and no driving.
[2022-04-28] MEDS ORDERED: THIAMINE INJ 100 MG, MAGNESIUM SULFATE 2 GM, MULTIVITAMIN 10 ML, FOLIC ACID INJ 1 MG in... IV ONE ×5 (02:24)
[2022-04-28] MEDS ORDERED: MULTIVITAMIN IV 10 ML VIAL ONE (02:31)
[2022-04-28] MEDS ORDERED: FOLIC ACID 5 MG/1 ML 10ML MDV ONE (02:31)
[2022-04-28] MEDS ORDERED: MAGNESIUM SULFATE 1 GM/2 ML VIAL ONE (02:31)
[2022-04-28] MEDS ORDERED: THIAMINE 100 MG/1 ML 2 ML MDV ONE (02:31)
[2022-04-28 02:40] LABS: ALBUMIN 4.4 g/dL (3.2-5.5); ALBUMIN/GLOBULIN RATIO 1.4 (1.0-2.2); BILIRUBIN,TOTAL 0.5 mg/dL (0.2-1.0); CALCIUM 9.4 mg/dL (8.5-10.3); CREATININE 0.8 mg/dL (0.4-1.0); ETOH - ETHANOL 54.8 mg/dL; POTASSIUM 3.9 mmol/L (3.5-5.0); TOTAL PROTEIN 7.6 g/dL (6.7-8.2)
[2022-04-28 02:51] LABS: THYROID STIMULATING HORMONE 6.31 uIU/mL (0.34-5.60)
[2022-04-28 02:53] LABS: FREE T4 (FREE THYROXINE) 0.45 ng/dL (0.58-1.64)
[2022-04-28 03:08] LABS: BASOPHILS # (AUTO) 0.1 10^3/uL (0.0-0.1); BASOPHILS % (AUTO) 1.4 %; EOSINOPHILS # (AUTO) 0.5 10^3/uL (0.0-0.7); EOSINOPHILS % (AUTO) 5.9 %; HCT - HEMATOCRIT 40.9 % (37.0-47.0); HGB - HEMOGLOBIN 13.8 g/dL (12.0-16.0); LYMPHOCYTES # (AUTO) 2.4 10^3/uL (1.5-3.5); LYMPHOCYTES % (AUTO) 28.4 %; MEAN CORPUSCULAR HEMOGLOBIN 31.9 pg (27.0-31.0); MEAN CORPUSCULAR HGB CONC 33.7 g/dL (32.0-36.0); MEAN CORPUSCULAR VOLUME 94.7 fL (81.0-99.0); MEAN PLATELET VOLUME 11.2 fL (7.9-10.8); MONOCYTES # (AUTO) 0.8 10^3/uL (0.0-1.0); MONOCYTES % (AUTO) 9.9 %; NEUTROPHILS # (AUTO) 4.6 10^3/uL (1.5-6.6); PLT - PLATELET COUNT 191 10^3/uL (130-450); RED BLOOD COUNT 4.32 10^6/uL (4.20-5.40); RED CELL DISTRIBUTION WIDTH 11.5 % (12.0-15.0); WHITE BLOOD COUNT 8.5 x10^3/uL (4.8-10.8)
[2022-04-28 03:12] LABS: BILIRUBIN,URINE NEGATIVE (NEGATIVE); CLARITY,URINE CLEAR (CLEAR); GLUCOSE, URINE (UA) NEGATIVE (NEGATIVE); KETONES,URINE (UA) NEGATIVE (NEGATIVE); LEUKOCYTE ESTERASE, URINE NEGATIVE (NEGATIVE); MUDS CUTOFF CONCENTRATIONS CUTOFF CONC BELOW:; NITRITE,URINE NEGATIVE (NEGATIVE); OCCULT BLOOD,URINE NEGATIVE (NEGATIVE); PROTEIN,URINE NEGATIVE (NEGATIVE); UROBILINOGEN,URINE 0.2 (NORMAL) E.U./dL (NORMAL)
[2022-04-28 03:13] LABS: HCG UR QUAL NEGATIVE
[2022-04-28 03:21] LABS: AMPHETAMINE SCREEN,URINE NEGATIVE (NEGATIVE); BARBITURATE SCREEN,UR NEGATIVE (NEGATIVE); BENZODIAZEPINES SCREEN, URINE POSITIVE (NEGATIVE); COCAINE SCREEN URINE NEGATIVE (NEGATIVE); METHADONE SCREEN, URINE NEGATIVE (NEGATIVE); METHAMPHETAMINES SCREEN, URINE NEGATIVE (NEGATIVE); OPIATE SCREEN, URINE NEGATIVE (NEGATIVE); OXYCODONE SCREEN, URINE NEGATIVE (NEGATIVE); PROPOXYPHENE SCREEN, URINE NEGATIVE (NEGATIVE); THC CANNABINOID SCREEN, URINE POSITIVE (NEGATIVE); TRICYCLIC ANTIDEPRESSANT,URINE NEGATIVE (NEGATIVE)
[2022-04-28] MEDS ORDERED: LEVOTHYROXINE 100 MCG VIAL IVP STA (05:22)
[2022-04-28] MEDS ORDERED: HYDROCORTISONE SUCCINATE 100 MG/2 ML VIAL IVP STA (05:23)
[2022-04-28 08:04] VITALS: BP 103/64
--- NOTE | 2022-04-28 08:07 | CT Report ---
PROCEDURE: CT brain without contrast INDICATIONS: new onset seizure headache TECHNIQUE: Noncontrast 4.5 mm thick angled axial sections acquired from the foramen magnum to the vertex. For r adiation dose reduction, the following was used: automated exposure control, adjustment of mA and/or kV according to patient size. COMPARISON: None. FINDINGS: Image quality: Excellent. CSF spaces: Basal cisterns are patent. No extra-axial fluid collections. Ventricles are normal in size and shape. Brain: No midline shift. No intracranial masses or hemorrhage. Black-white matter interface is norm al. Skull and face: Calvarium and visualized facial bones are intact, without suspicious lesions. Sinuses: Visualized sinuses and mastoids are clear. IMPRESSION: Normal CT of the brain Note: Final report is concordant with preliminary interpretation provided by [employer] Reviewed by: Aden Bo MD on 04/28/2022 7:06 AM [place] Approved by: Aden Bo MD on 04/28/2022 7:06 AM [place] Station ID: [id number]
== END 2022-04-28 08:14 | disposition home or self-care (01) ==
LOC: ED 01:45
DX: R56.9 Unspecified convulsions (principal); E03.9 Hypothyroidism, unspecified; F17.200 Nicotine dependence, unspecified, uncomplicated
CPT/HCPCS: 36415; 70450; 80053; 80306; 80320; 81003; 81025; 82533; 83690; 84439; 84443; 85025; 96365; 96375; 99284; J3411; 81001; 87086

== ENCOUNTER 2022-04-30 10:29 | Outpatient (CLI) | payer OTHER | END 2022-04-30 10:30 | disposition critical access hospital (66) | LOC: EMS 10:29 | DX: R56.9 Unspecified convulsions (principal) | CPT/HCPCS: A0425; A0429 ==

== ENCOUNTER 2022-04-30 10:35 | Emergency (ER) | payer OTHER ==
[2022-04-30] MEDS ORDERED: MIDAZOLAM 2 MG/2 ML VIAL ONE (10:40)
[2022-04-30] MEDS ORDERED: LORazepam 2 MG/ML VIAL ONE (10:41)
[2022-04-30] MEDS ORDERED: SODIUM CHLORIDE 0.9% 1,000 ML IV STA (10:53)
--- OUTSIDE RECORDS SUMMARY | 2022-04-30 10:57 | EXTERNAL MEDICAL SUMMARY RPT | Continuity of Care Document ---
:1985 Author Organization [facility] Address [address] [place] [address] Phone Care Team Providers Name Role Phone Unavailable Unavailable Unavailable Analia Mercer Unavailable Unavailable Allergies No information. Encounters No information. Functional Status No information. Immunizations No information. Medications date description facility 2022-02-26 00:00 fluconazole [facility] 2022-02-12 00:00 esomeprazole magnesium [facility] 2022-02-13 00:00 esomeprazole magnesium [facility] 2022-02-22 00:00 esomeprazole magnesium [facility] 2022-02-26 00:00 esomeprazole magnesium [facility] 2022-03-04 00:00 esomeprazole magnesium [facility] 2022-03-05 00:00 esomeprazole magnesium [facility] 2022-03-08 00:00 esomeprazole magnesium [facility] 2022-03-12 00:00 esomeprazole magnesium [facility] 2022-02-12 00:00 propranolol [facility] 2022-02-13 00:00 propranolol [facility] 2022-02-22 00:00 propranolol [facility] 2022-02-26 00:00 propranolol [facility] 2022-03-04 00:00 propranolol [facility] 2022-03-05 00:00 propranolol [facility] 2022-03-08 00:00 propranolol [facility] 2022-03-12 00:00 propranolol [facility] 2022-02-05 00:00 diazepam [facility] 2022-02-12 00:00 ondansetron [facility] 2022-02-13 00:00 ondansetron [facility] 2022-02-22 00:00 ondansetron [facility] 2022-02-26 00:00 ondansetron [facility] 2022-03-04 00:00 ondansetron [facility] 2022-03-05 00:00 ondansetron [facility] 2022-03-08 00:00 ondansetron [facility] 2022-03-12 00:00 ondansetron [facility] 2022-02-12 00:00 oxycodone-acetaminophen [facility] 2022-02-13 00:00 oxycodone-acetaminophen [facility] 2022-02-22 00:00 oxycodone-acetaminophen [facility] 2022-02-26 00:00 oxycodone-acetaminophen [facility] 2022-03-04 00:00 oxycodone-acetaminophen [facility] 2022-03-05 00:00 oxycodone-acetaminophen [facility] 2022-03-08 00:00 oxycodone-acetaminophen [facility] 2022-03-12 00:00 oxycodone-acetaminophen [facility] 2022-02-12 00:00 escitalopram oxalate [facility] 2022-02-13 00:00 escitalopram oxalate [facility] 2022-02-22 00:00 escitalopram oxalate [facility] 2022-02-26 00:00 escitalopram oxalate [facility] 2022-03-04 00:00 escitalopram oxalate [facility] 2022-03-05 00:00 escitalopram oxalate [facility] 2022-03-08 00:00 escitalopram oxalate [facility] 2022-03-12 00:00 escitalopram oxalate [facility] 2022-02-12 00:00 escitalopram oxalate [facility] 2022-02-13 00:00 escitalopram oxalate [facility] 2022-02-22 00:00 escitalopram oxalate [facility] 2022-02-26 00:00 escitalopram oxalate [facility] 2022-03-04 00:00 escitalopram oxalate [facility] 2022-03-05 00:00 escitalopram oxalate [facility] 2022-03-08 00:00 escitalopram oxalate [facility] 2022-03-12 00:00 escitalopram oxalate [facility] 2022-02-12 00:00 dicyclomine [facility] 2022-02-13 00:00 dicyclomine [facility] 2022-02-22 00:00 dicyclomine [facility] 2022-02-26 00:00 dicyclomine [facility] 2022-03-04 00:00 dicyclomine [facility] 2022-03-05 00:00 dicyclomine [facility] 2022-03-08 00:00 dicyclomine [facility] 2022-03-12 00:00 dicyclomine [facility] 2022-02-12 00:00 prednisone [facility] 2022-02-13 00:00 prednisone [facility] 2022-02-22 00:00 prednisone [facility] 2022-02-26 00:00 prednisone [facility] 2022-03-04 00:00 prednisone [facility] 2022-03-05 00:00 prednisone [facility] 2022-03-08 00:00 prednisone [facility] 2022-03-12 00:00 prednisone [facility] 2022-02-12 00:00 oxycodone-acetaminophen [facility] 2022-02-13 00:00 oxycodone-acetaminophen [facility] 2022-02-22 00:00 oxycodone-acetaminophen [facility] 2022-02-26 00:00 oxycodone-acetaminophen [facility] 2022-03-04 00:00 oxycodone-acetaminophen [facility] 2022-03-05 00:00 oxycodone-acetaminophen [facility] 2022-03-08 00:00 oxycodone-acetaminophen [facility] 2022-03-12 00:00 oxycodone-acetaminophen [facility] 2022-02-26 00:00 fluconazole [facility] 2022-03-04 00:00 acyclovir [facility] 2022-03-05 00:00 acyclovir [facility] 2022-03-08 00:00 acyclovir [facility] 2022-03-12 00:00 acyclovir [facility] 2022-02-12 00:00 oxycodone-acetaminophen [facility] 2022-02-13 00:00 oxycodone-acetaminophen [facility] 2022-02-22 00:00 oxycodone-acetaminophen [facility] 2022-02-26 00:00 oxycodone-acetaminophen [facility] 2022-03-04 00:00 oxycodone-acetaminophen [facility] 2022-03-05 00:00 oxycodone-acetaminophen [facility] 2022-03-08 00:00 oxycodone-acetaminophen [facility] 2022-03-12 00:00 oxycodone-acetaminophen [facility] 2022-02-12 00:00 prednisone [facility] 2022-02-13 00:00 prednisone [facility] 2022-02-22 00:00 prednisone [facility] 2022-02-26 00:00 prednisone [facility] 2022-03-04 00:00 prednisone [facility] 2022-03-05 00:00 prednisone [facility] 2022-03-08 00:00 prednisone [facility] 2022-03-12 00:00 prednisone [facility] 2022-02-12 00:00 propranolol [facility] 2022-02-13 00:00 propranolol [facility] 2022-02-22 00:00 propranolol [facility] 2022-02-26 00:00 propranolol [facility] 2022-03-04 00:00 propranolol [facility] 2022-03-05 00:00 propranolol [facility] 2022-03-08 00:00 propranolol [facility] 2022-03-12 00:00 propranolol [facility] 2022-03-04 00:00 acyclovir [facility] 2022-03-05 00:00 acyclovir [facility] 2022-03-08 00:00 acyclovir [facility] 2022-03-12 00:00 acyclovir [facility] 2022-02-05 00:00 diazepam [facility] 2022-02-26 00:00 fluconazole [facility] 2022-02-12 00:00 sucralfate [facility] 2022-02-13 00:00 sucralfate [facility] 2022-02-22 00:00 sucralfate [facility] 2022-02-26 00:00 sucralfate [facility] 2022-03-04 00:00 sucralfate [facility] 2022-03-05 00:00 sucralfate [facility] 2022-03-08 00:00 sucralfate [facility] 2022-03-12 00:00 sucralfate [facility] 2022-02-12 00:00 trazodone [facility] 2022-02-13 00:00 trazodone [facility] 2022-02-22 00:00 trazodone [facility] 2022-02-26 00:00 trazodone [facility] 2022-03-04 00:00 trazodone [facility] 2022-03-05 00:00 trazodone [facility] 2022-03-08 00:00 trazodone [facility] 2022-03-12 00:00 trazodone [facility] 2022-02-12 00:00 prednisone [facility] 2022-02-13 00:00 prednisone [facility] 2022-02-22 00:00 prednisone [facility] 2022-02-26 00:00 prednisone [facility] 2022-03-04 00:00 prednisone [facility] 2022-03-05 00:00 prednisone [facility] 2022-03-08 00:00 prednisone [facility] 2022-03-12 00:00 prednisone [facility] 2022-03-04 00:00 acyclovir [facility] 2022-03-05 00:00 acyclovir [facility] 2022-03-08 00:00 acyclovir [facility] 2022-03-12 00:00 acyclovir [facility] 2022-02-12 00:00 lamotrigine [facility] 2022-02-13 00:00 lamotrigine [facility] 2022-02-22 00:00 lamotrigine [facility] 2022-02-26 00:00 lamotrigine [facility] 2022-03-04 00:00 lamotrigine [facility] 2022-03-05 00:00 lamotrigine [facility] 2022-03-08 00:00 lamotrigine [facility] 2022-03-12 00:00 lamotrigine [facility] 2022-02-12 00:00 ondansetron [facility] 2022-02-13 00:00 ondansetron [facility] 2022-02-22 00:00 ondansetron [facility] 2022-02-26 00:00 ondansetron [facility] 2022-03-04 00:00 ondansetron [facility] 2022-03-05 00:00 ondansetron [facility] 2022-03-08 00:00 ondansetron [facility] 2022-03-12 00:00 ondansetron [facility] 2022-02-12 00:00 prednisone [facility] 2022-02-13 00:00 prednisone [facility] 2022-02-22 00:00 prednisone [facility] 2022-02-26 00:00 prednisone [facility] 2022-03-04 00:00 prednisone [facility] 2022-03-05 00:00 prednisone [facility] 2022-03-08 00:00 prednisone [facility] 2022-03-12 00:00 prednisone [facility] 2022-02-12 00:00 propranolol [facility] 2022-02-13 00:00 propranolol [facility] 2022-02-22 00:00 propranolol [facility] 2022-02-26 00:00 propranolol [facility] 2022-03-04 00:00 propranolol [facility] 2022-03-05 00:00 propranolol [facility] 2022-03-08 00:00 propranolol [facility] 2022-03-12 00:00 propranolol [facility] 2022-02-12 00:00 escitalopram oxalate [facility] 2022-02-13 00:00 escitalopram oxalate [facility] 2022-02-22 00:00 escitalopram oxalate [facility] 2022-02-26 00:00 escitalopram oxalate [facility] 2022-03-04 00:00 escitalopram oxalate [facility] 2022-03-05 00:00 escitalopram oxalate [facility] 2022-03-08 00:00 escitalopram oxalate [facility] 2022-03-12 00:00 escitalopram oxalate [facility] 2022-02-12 00:00 escitalopram oxalate [facility] 2022-02-13 00:00 escitalopram oxalate [facility] 2022-02-22 00:00 escitalopram oxalate [facility] 2022-02-26 00:00 escitalopram oxalate [facility] 2022-03-04 00:00 escitalopram oxalate [facility] 2022-03-05 00:00 escitalopram oxalate [facility] 2022-03-08 00:00 escitalopram oxalate [facility] 2022-03-12 00:00 escitalopram oxalate [facility] 2022-02-26 00:00 fluconazole [facility] 2022-02-12 00:00 lamotrigine [facility] 2022-02-13 00:00 lamotrigine [facility] 2022-02-22 00:00 lamotrigine [facility] 2022-02-26 00:00 lamotrigine [facility] 2022-03-04 00:00 lamotrigine [facility] 2022-03-05 00:00 lamotrigine [facility] 2022-03-08 00:00 lamotrigine [facility] 2022-03-12 00:00 lamotrigine [facility] 2022-02-12 00:00 sucralfate [facility] 2022-02-13 00:00 sucralfate [facility] 2022-02-22 00:00 sucralfate [facility] 2022-02-26 00:00 sucralfate [facility] 2022-03-04 00:00 sucralfate [facility] 2022-03-05 00:00 sucralfate [facility] 2022-03-08 00:00 sucralfate [facility] 2022-03-12 00:00 sucralfate [facility] 2022-02-12 00:00 dicyclomine [facility] 2022-02-13 00:00 dicyclomine [facility] 2022-02-22 00:00 dicyclomine [facility] 2022-02-26 00:00 dicyclomine [facility] 2022-03-04 00:00 dicyclomine [facility] 2022-03-05 00:00 dicyclomine [facility] 2022-03-08 00:00 dicyclomine [facility] 2022-03-12 00:00 dicyclomine [facility] 2022-02-12 00:00 esomeprazole magnesium [facility] 2022-02-13 00:00 esomeprazole magnesium [facility] 2022-02-22 00:00 esomeprazole magnesium [facility] 2022-02-26 00:00 esomeprazole magnesium [facility] 2022-03-04 00:00 esomeprazole magnesium [facility] 2022-03-05 00:00 esomeprazole magnesium [facility] 2022-03-08 00:00 esomeprazole magnesium [facility] 2022-03-12 00:00 esomeprazole magnesium [facility] 2022-02-12 00:00 sucralfate [facility] 2022-02-13 00:00 sucralfate [facility] 2022-02-22 00:00 sucralfate [facility] 2022-02-26 00:00 sucralfate [facility] 2022-03-04 00:00 sucralfate [facility] 2022-03-05 00:00 sucralfate [facility] 2022-03-08 00:00 sucralfate [facility] 2022-03-12 00:00 sucralfate [facility] 2022-02-12 00:00 trazodone [facility] 2022-02-13 00:00 trazodone [facility] 2022-02-22 00:00 trazodone [facility] 2022-02-26 00:00 trazodone [facility] 2022-03-04 00:00 trazodone [facility] 2022-03-05 00:00 trazodone [facility] 2022-03-08 00:00 trazodone [facility] 2022-03-12 00:00 trazodone [facility] 2022-02-12 00:00 ondansetron [facility] 2022-02-13 00:00 ondansetron [facility] 2022-02-22 00:00 ondansetron [facility] 2022-02-26 00:00 ondansetron [facility] 2022-03-04 00:00 ondansetron [facility] 2022-03-05 00:00 ondansetron [facility] 2022-03-08 00:00 ondansetron [facility] 2022-03-12 00:00 ondansetron [facility] 2022-02-05 00:00 diazepam [facility] 2022-02-12 00:00 trazodone [facility] 2022-02-13 00:00 trazodone [facility] 2022-02-22 00:00 trazodone [facility] 2022-02-26 00:00 trazodone [facility] 2022-03-04 00:00 trazodone [facility] 2022-03-05 00:00 trazodone [facility] 2022-03-08 00:00 trazodone [facility] 2022-03-12 00:00 trazodone [facility] 2022-02-12 00:00 escitalopram oxalate [facility] 2022-02-13 00:00 escitalopram oxalate [facility] 2022-02-22 00:00 escitalopram oxalate [facility] 2022-02-26 00:00 escitalopram oxalate [facility] 2022-03-04 00:00 escitalopram oxalate [facility] 2022-03-05 00:00 escitalopram oxalate [facility] 2022-03-08 00:00 escitalopram oxalate [facility] 2022-03-12 00:00 escitalopram oxalate [facility] [facility] 2022-02-12 00:00 escitalopram oxalate [facility] 2022-02-13 00:00 escitalopram oxalate [facility] 2022-02-22 00:00 escitalopram oxalate [facility] 2022-02-26 00:00 escitalopram oxalate [facility] 2022-03-04 00:00 escitalopram oxalate [facility] 2022-03-05 00:00 escitalopram oxalate [facility] 2022-03-08 00:00 escitalopram oxalate [facility] 2022-03-12 00:00 escitalopram oxalate [facility] 2022-02-12 00:00 sucralfate [facility] 2022-02-13 00:00 sucralfate [facility] 2022-02-22 00:00 sucralfate [facility] 2022-02-26 00:00 sucralfate [facility] 2022-03-04 00:00 sucralfate [facility] 2022-03-05 00:00 sucralfate [facility] 2022-03-08 00:00 sucralfate [facility] 2022-03-12 00:00 sucralfate [facility] 2022-02-12 00:00 lamotrigine [facility] 2022-02-13 00:00 lamotrigine [facility] 2022-02-22 00:00 lamotrigine [facility] 2022-02-26 00:00 lamotrigine [facility] 2022-03-04 00:00 lamotrigine [facility] 2022-03-05 00:00 lamotrigine [facility] 2022-03-08 00:00 lamotrigine [facility] 2022-03-12 00:00 lamotrigine [facility] 2022-02-12 00:00 esomeprazole magnesium [facility] 2022-02-13 00:00 esomeprazole magnesium [facility] 2022-02-22 00:00 esomeprazole magnesium [facility] 2022-02-26 00:00 esomeprazole magnesium [facility] 2022-03-04 00:00 esomeprazole magnesium [facility] 2022-03-05 00:00 esomeprazole magnesium [facility] 2022-03-08 00:00 esomeprazole magnesium [facility] 2022-03-12 00:00 esomeprazole magnesium [facility] 2022-03-04 00:00 acyclovir [facility] 2022-03-05 00:00 acyclovir [facility] 2022-03-08 00:00 acyclovir [facility] 2022-03-12 00:00 acyclovir [facility] 2022-02-12 00:00 ondansetron [facility] 2022-02-13 00:00 ondansetron [facility] 2022-02-22 00:00 ondansetron [facility] 2022-02-26 00:00 ondansetron [facility] 2022-03-04 00:00 ondansetron [facility] 2022-03-05 00:00 ondansetron [facility] 2022-03-08 00:00 ondansetron [facility] 2022-03-12 00:00 ondansetron [facility] 2022-02-05 00:00 diazepam [facility] 2022-02-12 00:00 dicyclomine [facility] 2022-02-13 00:00 dicyclomine [facility] 2022-02-22 00:00 dicyclomine [facility] 2022-02-26 00:00 dicyclomine [facility] 2022-03-04 00:00 dicyclomine [facility] 2022-03-05 00:00 dicyclomine [facility] 2022-03-08 00:00 dicyclomine [facility] 2022-03-12 00:00 dicyclomine [facility] 2022-02-12 00:00 oxycodone-acetaminophen [facility] 2022-02-13 00:00 oxycodone-acetaminophen [facility] 2022-02-22 00:00 oxycodone-acetaminophen [facility] 2022-02-26 00:00 oxycodone-acetaminophen [facility] 2022-03-04 00:00 oxycodone-acetaminophen [facility] 2022-03-05 00:00 oxycodone-acetaminophen [facility] 2022-03-08 00:00 oxycodone-acetaminophen [facility] 2022-03-12 00:00 oxycodone-acetaminophen [facility] 2022-02-12 00:00 esomeprazole magnesium [facility] 2022-02-13 00:00 esomeprazole magnesium [facility] 2022-02-22 00:00 esomeprazole magnesium [facility] 2022-02-26 00:00 esomeprazole magnesium [facility] 2022-03-04 00:00 esomeprazole magnesium [facility] 2022-03-05 00:00 esomeprazole magnesium [facility] 2022-03-08 00:00 esomeprazole magnesium [facility] 2022-03-12 00:00 esomeprazole magnesium [facility] 2022-02-12 00:00 lamotrigine [facility] 2022-02-13 00:00 lamotrigine [facility] 2022-02-22 00:00 lamotrigine [facility] 2022-02-26 00:00 lamotrigine [facility] 2022-03-04 00:00 lamotrigine [facility] 2022-03-05 00:00 lamotrigine [facility] 2022-03-08 00:00 lamotrigine [facility] 2022-03-12 00:00 lamotrigine [facility] 2022-02-12 00:00 escitalopram oxalate [facility] 2022-02-13 00:00 escitalopram oxalate [facility] 2022-02-22 00:00 escitalopram oxalate [facility] 2022-02-26 00:00 escitalopram oxalate [facility] 2022-03-04 00:00 escitalopram oxalate [facility] 2022-03-05 00:00 escitalopram oxalate [facility] 2022-03-08 00:00 escitalopram oxalate [facility] 2022-03-12 00:00 escitalopram oxalate [facility] 2022-02-12 00:00 escitalopram oxalate [facility] 2022-02-13 00:00 escitalopram oxalate [facility] 2022-02-22 00:00 escitalopram oxalate [facility] 2022-02-26 00:00 escitalopram oxalate [facility] 2022-03-04 00:00 escitalopram oxalate [facility] 2022-03-05 00:00 escitalopram oxalate [facility] 2022-03-08 00:00 escitalopram oxalate [facility] 2022-03-12 00:00 escitalopram oxalate [facility] 2022-02-12 00:00 trazodone [facility] 2022-02-13 00:00 trazodone [facility] 2022-02-22 00:00 trazodone [facility] 2022-02-26 00:00 trazodone [facility] 2022-03-04 00:00 trazodone [facility] 2022-03-05 00:00 trazodone [facility] 2022-03-08 00:00 trazodone [facility] 2022-03-12 00:00 trazodone [facility] 2022-02-12 00:00 propranolol [facility] 2022-02-13 00:00 propranolol [facility] 2022-02-22 00:00 propranolol [facility] 2022-02-26 00:00 propranolol [facility] 2022-03-04 00:00 propranolol [facility] 2022-03-05 00:00 propranolol [facility] 2022-03-08 00:00 propranolol [facility] 2022-03-12 00:00 propranolol [facility] 2022-02-12 00:00 dicyclomine [facility] 2022-02-13 00:00 dicyclomine [facility] 2022-02-22 00:00 dicyclomine [facility] 2022-02-26 00:00 dicyclomine [facility] 2022-03-04 00:00 dicyclomine [facility] 2022-03-05 00:00 dicyclomine [facility] 2022-03-08 00:00 dicyclomine [facility] 2022-03-12 00:00 dicyclomine [facility] Problems date description facility 2022-02-26 00:00 Dizziness [facility] 2022-02-26 00:00 Dizziness and giddiness [facility] 2022-02-26 00:00 Syncope and collapse [facility] Procedures date description facility 2022-02-26 00:00 Visit Code Hold [facility] Results/Labs test date author facility value unit interpret ation Result panel 1 (unknown) (no date) (unknown) [facility] (no value[facility] Result panel 2 (unknown) (no date) (unknown) [facility] (no value[facility] Result panel 3 (unknown) (no date) (unknown) [facility] (no value[facility] Result panel 4 (unknown) (no date) (unknown) [facility] (no value[facility] Result panel 5 (unknown) (no date) (unknown) [facility] (no value[facility] Result panel 6 (unknown) (no date) (unknown) [facility] (no value[facility] Result panel 7 (unknown) (no date) (unknown) [facility] (no value[facility] Result panel 8 (unknown) (no date) (unknown) [facility] (no value[facility] Result panel 9 (unknown) (no date) (unknown) [facility] (no value[facility] Result panel 10 (unknown) (no date) (unknown) [facility] (no value[facility] Result panel 11 (unknown) (no date) (unknown) [facility] (no value[facility] Result panel 12 (unknown) (no date) (unknown) [facility] (no value[facility] Result panel 13 (unknown) (no date) (unknown) [facility] (no value[facility] Result panel 14 (unknown) (no date) (unknown) [facility] (no value[facility] Result panel 15 (unknown) (no date) (unknown) [facility] (no value[facility] Result panel 16 (unknown) (no date) (unknown) [facility] (no value[facility] Result panel 17 (unknown) (no date) (unknown) [facility] (no value[facility] Result panel 18 (unknown) (no date) (unknown) [facility] (no value[facility] Result panel 19 (unknown) (no date) (unknown) [facility] (no value[facility] Result panel 20 (unknown) (no date) (unknown) [facility] (no value[facility] Result panel 21 (unknown) (no date) (unknown) [facility] (no value[facility] Result panel 22 (unknown) (no date) (unknown) [facility] (no value[facility] Result panel 23 (unknown) (no date) (unknown) [facility] (no value[facility] Result panel 24 (unknown) (no date) (unknown) [facility] (no value[facility] Result panel 25 (unknown) (no date) (unknown) [facility] (no value) [facility] Result panel 26 (unknown) (no date) (unknown) [facility] (no value[facility] Result panel 27 (unknown) (no date) (unknown) [facility] (no value) [facility] Result panel 28 (unknown) (no date) (unknown) [facility] (no value) [facility] Result panel 29 (unknown) (no date) (unknown) [facility] (no value) [facility] Result panel 30 (unknown) (no date) (unknown) [facility] (no value) [facility] Result panel 31 (unknown) (no date) (unknown) [facility] (no value) [facility] Result panel 32 (unknown) (no date) (unknown) [facility] (no value) [facility] Result panel 33 (unknown) (no date) (unknown) [facility] (no value) [facility] Result panel 34 (unknown) (no date) (unknown) [facility] (no value) [facility] Result panel 35 (unknown) (no date) (unknown) [facility] (no value) [facility] Result panel 36 (unknown) (no date) (unknown) [facility] (no value) [facility] Result panel 37 (unknown) (no date) (unknown) [facility] (no value) [facility] Result panel 38 (unknown) (no date) (unknown) [facility] (no value) [facility] Result panel 39 (unknown) (no date) (unknown) [facility] (no value) [facility] Result panel 40 (unknown) (no date) (unknown) [facility] (no value) [facility] Result panel 41 (unknown) (no date) (unknown) [facility] (no value) [facility] Result panel 42 (unknown) (no date) (unknown) [facility] (no value) [facility] Result panel 43 (unknown) (no date) (unknown) [facility] (no value) [facility] Result panel 44 (unknown) (no date) (unknown) [facility] (no value) [facility] Result panel 45 (unknown) (no date) (unknown) [facility] (no value) [facility] Result panel 46 (unknown) (no date) (unknown) [facility] (no value) [facility] Result panel 47 (unknown) (no date) (unknown) [facility] (no value) [facility] Result panel 48 (unknown) (no date) (unknown) [facility] (no value) [facility] Result panel 49 (unknown) (no date) (unknown) [facility] (no value) [facility] Result panel 50 (unknown) (no date) (unknown) [facility] (no value) [facility] Result panel 51 (unknown) (no date) (unknown) [facility] (no value) [facility] Result panel 52 (unknown) (no date) (unknown) [facility] (no value) [facility] Result panel 53 (unknown) (no date) (unknown) [facility] (no value) [facility] Result panel 54 (unknown) (no date) (unknown) [facility] (no value) [facility] Result panel 55 (unknown) (no date) (unknown) [facility] (no value) [facility] Result panel 56 (unknown) (no date) (unknown) [facility] (no value) [facility] Result panel 57 (unknown) (no date) (unknown) [facility] (no value) [facility] Result panel 58 (unknown) (no date) (unknown) [facility] (no value) [facility] Result panel 59 (unknown) (no date) (unknown) [facility] (no value) [facility] Result panel 60 (unknown) (no date) (unknown) [facility] (no value) [facility] Result panel 61 (unknown) (no date) (unknown) [facility] (no value) [facility] Result panel 62 (unknown) (no date) (unknown) [facility] (no value) [facility] Result panel 63 (unknown) (no date) (unknown) [facility] (no value) [facility] Result panel 64 (unknown) (no date) (unknown) [facility] (no value) [facility] Result panel 65 (unknown) (no date) (unknown) [facility] (no value) [facility] Result panel 66 (unknown) (no date) (unknown) [facility] (no value) [facility] Result panel 67 (unknown) (no date) (unknown) [facility] (no value) [facility] Result panel 68 (unknown) (no date) (unknown) [facility] (no value) [facility] Result panel 69 (unknown) (no date) (unknown) [facility] (no value) [facility] Result panel 70 (unknown) (no date) (unknown) [facility] (no value) [facility] Result panel 71 (unknown) (no date) (unknown) [facility] (no value) [facility] Result panel 72 (unknown) (no date) (unknown) [facility] (no value) [facility] Result panel 73 (unknown) (no date) (unknown) [facility] (no value) [facility] Result panel 74 (unknown) (no date) (unknown) [facility] (no value) [facility] Result panel 75 (unknown) (no date) (unknown) [facility] (no value) [facility] Result panel 76 (unknown) (no date) (unknown) [facility] (no value) [facility] Result panel 77 (unknown) (no date) (unknown) [facility] (no value) [facility] Result panel 78 (unknown) (no date) (unknown) [facility] (no value) [facility] Result panel 79 (unknown) (no date) (unknown) [facility] (no value) [facility] Result panel 80 (unknown) (no date) (unknown) [facility] (no value) [facility] Result panel 81 (unknown) (no date) (unknown) [facility] (no value) [facility] Result panel 82 (unknown) (no date) (unknown) [facility] (no value) [facility] Result panel 83 (unknown) (no date) (unknown) [facility] (no value) [facility] Result panel 84 (unknown) (no date) (unknown) [facility] (no value) [facility] Result panel 85 (unknown) (no date) (unknown) [facility] (no value) [facility] Result panel 86 (unknown) (no date) (unknown) [facility] (no value) [facility] Result panel 87 (unknown) (no date) (unknown) [facility] (no value) [facility] Result panel 88 (unknown) (no date) (unknown) [facility] (no value) [facility] Result panel 89 (unknown) (no date) (unknown) [facility] (no value) [facility] Result panel 90 (unknown) (no date) (unknown) [facility] (no value) [facility] Result panel 91 (unknown) (no date) (unknown) [facility] Result panel 92 (unknown) (no date) (unknown) [facility] (no value[facility] Result panel 93 (unknown) (no date) (unknown) [facility] (no value) [facility] Result panel 94 (unknown) (no date) (unknown) [facility] (no value) [facility] Result panel 95 (unknown) (no date) (unknown) [facility] (no value) [facility] Result panel 96 (unknown) (no date) (unknown) [facility] (no value) [facility] Result panel 97 (unknown) (no date) (unknown) [facility] (no value) [facility] Result panel 98 (unknown) (no date) (unknown) [facility] (no value) [facility] Result panel 99 (unknown) (no date) (unknown) [facility]no value) [facility] Result panel 100 (unknown) (no date) (unknown) [facility] (no value) [facility] Result panel 101 (unknown) (no date) (unknown) [facility] (no value) [facility] Result panel 102 (unknown) (no date) (unknown) [facility] (no value) [facility] Result panel 103 (unknown) (no date) (unknown) [facility] (no value) [facility] Result panel 104 (unknown) (no date) (unknown) [facility] (no value) [facility] Result panel 105 (unknown) (no date) (unknown) [facility] (no value) [facility] Result panel 106 (unknown) (no date) (unknown) [facility] (no value) [facility] Result panel 107 (unknown) (no date) (unknown) [facility] (no value) [facility] Result panel 108 (unknown) (no date) (unknown) [facility] (no value) [facility] Result panel 109 (unknown) (no date) (unknown) [facility] (no value) [facility] Result panel 110 (unknown) (no date) (unknown) [facility] (no value) [facility] Result panel 111 (unknown) (no date) (unknown) [facility]no value) [facility] Result panel 112 (unknown) (no date) (unknown) [facility] (no value) [facility] Result panel 113 (unknown) (no date) (unknown) [facility] (no value) [facility] Result panel 114 (unknown) (no date) (unknown) [facility] (no value) [facility] Result panel 115 (unknown) (no date) (unknown) [facility] (no value) [facility] Result panel 116 (unknown) (no date) (unknown) [facility] (no value) [facility] Result panel 117 (unknown) (no date) (unknown) [facility] (no value) [facility] Result panel 118 (unknown) (no date) (unknown) [facility] (no value) [facility] Result panel 119 (unknown) (no date) (unknown) [facility] (no value) [facility] Result panel 120 (unknown) (no date) (unknown) [facility] (no value) [facility] Result panel 121 (unknown) (no date) (unknown) [facility] (no value) [facility] Result panel 122 (unknown) (no date) (unknown) [facility] (no value) [facility] Result panel 123 (unknown) (no date) (unknown) [facility] (no value) [facility] Result panel 124 (unknown) (no date) (unknown) [facility] (no value) [facility] Result panel 125 (unknown) (no date) (unknown) [facility] (no value) [facility] Result panel 126 (unknown) (no date) (unknown) [facility] (no value) [facility] Result panel 127 (unknown) (no date) (unknown) [facility] (no value) [facility] Result panel 128 (unknown) (no date) (unknown) [facility] (no value) [facility] Result panel 129 (unknown) (no date) (unknown) [facility] (no value) [facility] Result panel 130 (unknown) (no date) (unknown) [facility] (no value) [facility] Result panel 131 (unknown) (no date) (unknown) [facility] (no value) [facility] Result panel 132 (unknown) (no date) (unknown) [facility] (no value) [facility] Result panel 133 (unknown) (no date) (unknown) [facility] (no value) [facility] Result panel 134 (unknown) (no date) (unknown) [facility] (no value) [facility] Result panel 135 (unknown) (no date) (unknown) [facility] (no value) [facility] Result panel 136 (unknown) (no date) (unknown) [facility] (no value) [facility] Result panel 137 (unknown) (no date) (unknown) [facility] (no value) [facility] Result panel 138 (unknown) (no date) (unknown) [facility] (no value) [facility] Result panel 139 (unknown) (no date) (unknown) [facility] (no value) [facility] Result panel 140 (unknown) (no date) (unknown) [facility] (no value) [facility] Result panel 141 (unknown) (no date) (unknown) [facility] (no value) [facility] Result panel 142 (unknown) (no date) (unknown) [facility] (no value) [facility] Result panel 143 (unknown) (no date) (unknown) [facility] (no value) [facility] Result panel 144 (unknown) (no date) (unknown) [facility] (no value) [facility] Result panel 145 (unknown) (no date) (unknown) [facility] (no value) [facility] Result panel 146 (unknown) (no date) (unknown) [facility] (no value) [facility] Result panel 147 (unknown) (no date) (unknown) [facility] (no value) [facility] Result panel 148 (unknown) (no date) (unknown) [facility] (no value) [facility] Result panel 149 (unknown) (no date) (unknown) [facility] (no value) [facility] Result panel 150 (unknown) (no date) (unknown) [facility] (no value) [facility] Result panel 151 (unknown) (no date) (unknown) [facility] (no value) [facility] Result panel 152 (unknown) (no date) (unknown) [facility] (no value) [facility] Result panel 153 (unknown) (no date) (unknown) [facility] (no value) [facility] Result panel 154 (unknown) (no date) (unknown) [facility] (no value) [facility] Result panel 155 (unknown) (no date) (unknown) [facility] (no value) [facility] Result panel 156 (unknown) (no date) (unknown) [facility] (no value) [facility] Result panel 157 (unknown) (no date) (unknown) [facility] (no value) [facility] Result panel 158 (unknown) (no date) (unknown) [facility] (no value) [facility] Result panel 159 (unknown) (no date) (unknown) [facility] (no value) [facility] Result panel 160 (unknown) (no date) (unknown) [facility] (no value) [facility] Result panel 161 (unknown) (no date) (unknown) [facility] (no value) [facility] Result panel 162 (unknown) (no date) (unknown) [facility] (no value) [facility] Result panel 163 (unknown) (no date) (unknown) [facility] (no value) [facility] Result panel 164 (unknown) (no date) (unknown) [facility] (no value) [facility] Result panel 165 (unknown) (no date) (unknown) [facility] (no value) [facility] Result panel 166 (unknown) (no date) (unknown) [facility] (no value) [facility] Result panel 167 (unknown) (no date) (unknown) [facility] (no value) [facility] Result panel 168 (unknown) (no date) (unknown) [facility] (no value) [facility] Result panel 169 (unknown) (no date) (unknown) [facility] (no value) [facility] Result panel 170 (unknown) (no date) (unknown) [facility] (no value) [facility] Result panel 171 (unknown) (no date) (unknown) [facility] (no value) [facility] Result panel 172 (unknown) (no date) (unknown) [facility] (no value) [facility] Result panel 173 (unknown) (no date) (unknown) [facility] (no value) [facility] Result panel 174 (unknown) (no date) (unknown) [facility] (no value) [facility] Result panel 175 (unknown) (no date) (unknown) [facility] (no value) [facility] Result panel 176 (unknown) (no date) (unknown) [facility] (no value) [facility] Result panel 177 (unknown) (no date) (unknown) [facility] (no value) [facility] Result panel 178 (unknown) (no date) (unknown) [facility] (no value) [facility] Result panel 179 (unknown) (no date) (unknown) [facility] (no value) [facility] Result panel 180 (unknown) (no date) (unknown) [facility] (no value) [facility] Result panel 181 (unknown) (no date) (unknown) [facility] (no value) [facility] Result panel 182 (unknown) (no date) (unknown) [facility] (no value) [facility] Result panel 183 (unknown) (no date) (unknown) [facility] (no value) [facility] Result panel 184 (unknown) (no date) (unknown) [facility] (no value) [facility] Result panel 185 (unknown) (no date) (unknown) [facility] (no value) [facility] Result panel 186 (unknown) (no date) (unknown) [facility] (no value) [facility] Result panel 187 (unknown) (no date) (unknown) [facility] (no value) [facility] Result panel 188 (unknown) (no date) (unknown) [facility] (no value) [facility] Result panel 189 (unknown) (no date) (unknown) [facility] (no value) [facility] Result panel 190 (unknown) (no date) (unknown) [facility] (no value) [facility] Result panel 191 (unknown) (no date) (unknown) [facility] (no value) [facility] Result panel 192 (unknown) (no date) (unknown) [facility] (no value) [facility] Result panel 193 (unknown) (no date) (unknown) [facility] (no value) [facility] Result panel 194 (unknown) (no date) (unknown) [facility] (no value) [facility] Result panel 195 (unknown) (no date) (unknown) [facility] (no value) [facility] Result panel 196 (unknown) (no date) (unknown) [facility] (no value) [facility] Result panel 197 (unknown) (no date) (unknown) [facility] (no value) [facility] Result panel 198 (unknown) (no date) (unknown) [facility] (no value) [facility] Result panel 199 (unknown) (no date) (unknown) [facility] (no value) [facility] Result panel 200 (unknown) (no date) (unknown) [facility] (no value) [facility] Result panel 201 (unknown) (no date) (unknown) [facility] (no value) [facility] Result panel 202 (unknown) (no date) (unknown) [facility] (no value) [facility] Result panel 203 (unknown) (no date) (unknown) [facility] (no value) [facility] Result panel 204 (unknown) (no date) (unknown) [facility] (no value) [facility] Result panel 205 (unknown) (no date) (unknown) [facility] (no value) [facility] Result panel 206 (unknown) (no date) (unknown) [facility] (no value) [facility] Result panel 207 (unknown) (no date) (unknown) [facility] (no value) [facility] Social History date description facility 2022-02-26 00:00 Current every day smoker [facility] Vital Signs date measurement value units 2022-02-26 00:00 BMI 22.74 kg/m2 2022-02-26 00:00 BP_diastolic 72 mmHg 2022-02-26 00:00 BP_systolic 112 mmHg 2022-02-26 00:00 heart_rate 68 /min 2022-02-26 00:00 height_metric 152.4 cm 2022-02-26 00:00 height_standard 60 in 2022-02-26 00:00 respiration_rate 14 /min 2022-02-26 00:00 temperature_metric 36.22 C 2022-02-26 00:00 temperature_standard 97.2 F 2022-02-26 00:00 weight_metric 52.62 kg 2022-02-26 00:00 weight_standard 116 lb
[2022-04-30 11:02] LABS: BASOPHILS # (AUTO) 0.1 10^3/uL (0.0-0.1); BASOPHILS % (AUTO) 1.6 %; EOSINOPHILS # (AUTO) 0.4 10^3/uL (0.0-0.7); EOSINOPHILS % (AUTO) 5.4 %; HCT - HEMATOCRIT 46.2 % (37.0-47.0); LYMPHOCYTES # (AUTO) 3.3 10^3/uL (1.5-3.5); LYMPHOCYTES % (AUTO) 43.2 %; MEAN CORPUSCULAR HEMOGLOBIN 31.4 pg (27.0-31.0); MEAN CORPUSCULAR HGB CONC 32.5 g/dL (32.0-36.0); MEAN CORPUSCULAR VOLUME 96.7 fL (81.0-99.0); MONOCYTES # (AUTO) 0.5 10^3/uL (0.0-1.0); MONOCYTES % (AUTO) 7.2 %; NEUTROPHILS # (AUTO) 3.2 10^3/uL (1.5-6.6); NEUTROPHILS % (AUTO) 42.3 %; PLT - PLATELET COUNT 227 10^3/uL (130-450); RED BLOOD COUNT 4.78 10^6/uL (4.20-5.40); RED CELL DISTRIBUTION WIDTH 11.9 % (12.0-15.0); WHITE BLOOD COUNT 7.5 x10^3/uL (4.8-10.8)
[2022-04-30] MEDS ORDERED: LORazepam 2 MG/ML VIAL IVP STA (11:03)
[2022-04-30 11:38] LABS: ALBUMIN 4.2 g/dL (3.2-5.5); ALBUMIN/GLOBULIN RATIO 1.4 (1.0-2.2); ALKALINE PHOSPHATASE 55 IU/L (42-121); ALT ALANINE AMINOTRANSFERASE 14 IU/L (10-60); AST ASPARTATE AMINOTRANSFERASE 19 IU/L (10-42); BILIRUBIN,TOTAL 0.7 mg/dL (0.2-1.0); BUN - BLOOD UREA NITROGEN 10 mg/dL (6-20); CALCIUM 9.1 mg/dL (8.5-10.3); CARBON DIOXIDE - CO2 27 mmol/L (21-32); CHLORIDE 100 mmol/L (101-111); CREATININE 0.9 mg/dL (0.4-1.0); ETOH - ETHANOL < 5.0 mg/dL; GFR - MDRD 71 (>89); GLUCOSE 96 mg/dL (70-100); LIPASE 40 U/L (22-51); POTASSIUM 4.5 mmol/L (3.5-5.0); SODIUM 135 mmol/L (135-145); TOTAL PROTEIN 7.1 g/dL (6.7-8.2)
--- NOTE | 2022-04-30 11:45 | ED Physician Documentation ---
History of Present Illness - Stated complaint Stated Complaint: SEIZURES X5 - Chief complaint Chief Complaint: Neuro - History obtained from History obtained from: Patient, Family, EMS - Additonal information Additional information: Patient is a 36-year-old with a history of cervical dystonia, thyroid disorder presenting for evaluation of multiple seizure-like episodes. Per her spouse, they had gotten into a verbal argument this morning and she went into another room to cool down.He then heard her bump into something and went to check on her and helped her to the couch. He then reports she had 2 seizure-like episodes and called 911. She does not have a diagnosis of a seizure disorder. She takes Valium for the history of dystonia.She was seen on April 28 after a seizure- like episode. She had consumed alcohol that evening. Her neurologist was consulted and did not feel that it was truly a seizure and did not recommend any medications at that time.She did have a CT and lab work at that time.She denies recent illness. She denies head injury or trauma.She denies alcohol use since . She does use cannabis.Per EMS she has had 1 seizure-like episode during their evaluation and is currently having a similar appearance upon arrival. 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 WORKER: section, Hysterectomy - Present Medications Home Medications: Ambulatory Orders Medication Instructions Recorded Confirmed Gabapentin [Neurontin] 300 mg PO TID 09/19/20 04/30/22 diazePAM [Valium] 10 mg PO TID PRN 07/08/21 04/30/22 PARoxetine [Paxil] 10 mg PO DAILY 04/04/22 04/30/22 Propranolol [Inderal] 10 mg PO TID PRN 04/04/22 04/30/22 traZODone [Desyrel] 50 - 100 mg PO HS PRN 04/28/22 04/30/22 Levetiracetam [Keppra] 500 mg PO BID #60 tablet 04/30/22 - Allergies Allergies/Adverse Reactions: Allergies Allergy/AdvReac Type Severity Reaction Status Date / Time morphine Allergy Respiratory Verified 04/30/22 10:48 - Social History Does the pt smoke?: No Smoking Status: Never smoker Does the pt drink ETOH?: Yes Does the pt have substance abuse?: Yes - Immunizations Immunizations are current?: Yes - POLST Patient has POLST: No PD ED PE NORMAL - General General: Alert and oriented X 3, No acute distress, Well developed/nourished - HEENT HEENT: Atraumatic, PERRL, EOMI, Moist mucous membranes, Pharynx benign - Neck Neck: Supple, no meningeal sign - Cardiac Cardiac: RRR, No murmur - Respiratory Respiratory: No respiratory distress, Clear bilaterally - Abdomen Abdomen: Soft, Non tender, Non distended - Derm Derm: Warm and dry - Extremities Extremities: No edema - Neuro Neuro: Alert and oriented X 3, 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, No motor deficit, No sensory deficit, Normal speech Eye Opening: Spontaneous Motor: Obeys Commands Verbal: Oriented GCS Score: 15 Results - Vitals Vitals: Vital Signs - 24 hr 04/30/22 04/30/22 04/30/22 10:49 10:54 12:30 Temperature 37 C Heart Rate 61 65 60 Respiratory 24 17 16 Rate Blood Pressure 119/73 97/62 O2 Saturation 100 100 100 If not protocol 4 : Oxygen Flow, liters/minute Oxygen O2 Source Room air - EKG (time done) 1100 Rate: Rate (enter#) (62) Rhythm: NSR [place]: Normal Intervals: No: Prolonged QT Ischemia: No: ST elevation c/w ischemia - Labs Labs: Laboratory Tests 04/30/22 04/30/22 04/30/22 10:42 11:13 11:13 WBC 7.5 RBC 4.78 Hgb 15.0 Hct 46.2 MCV 96.7 MCH 31.4 H MCHC 32.5 RDW 11.9 L Plt Count 227 MPV 11.0 H Neut # (Auto) 3.2 Lymph # (Auto) 3.3 Gordon # (Auto) 0.5 Eos # (Auto) 0.4 Baso # (Auto) 0.1 Absolute Nucleated RBC 0.00 Nucleated RBC % 0.0 Sodium 135 Potassium 4.5 Chloride 100 L Carbon Dioxide 27 Anion Gap 8.0 BUN 10 Creatinine 0.9 Estimated GFR (MDRD) 71 L Glucose 96 Calcium 9.1 Magnesium 2.0 Total Bilirubin 0.7 AST 19 ALT 14 Alkaline Phosphatase 55 Total Protein 7.1 Albumin 4.2 Globulin 2.9 Albumin/Globulin Ratio 1.4 Lipase 40 TSH 2.56 Free T4 0.65 Serum HCG, Qual Ethyl Alcohol < 5.0 04/30/22 11:13 WBC RBC Hgb Hct MCV MCH MCHC RDW Plt Count MPV Neut # (Auto) Lymph # (Auto) Gordon # (Auto) Eos # (Auto) Baso # (Auto) Absolute Nucleated RBC Nucleated RBC % Sodium Potassium Chloride Carbon Dioxide Anion Gap BUN Creatinine Estimated GFR (MDRD) Glucose Calcium Magnesium Total Bilirubin AST ALT Alkaline Phosphatase Total Protein Albumin Globulin Albumin/Globulin Ratio Lipase TSH Free T4 Serum HCG, Qual NEGATIVE Ethyl Alcohol PD Medical Decision Making - ED course Complexity details: reviewed results, re-evaluated patient, d/w patient, d/w family ED course: Patient presenting for evaluation of seizure-like episodes. She was seen here 2 days ago for similar presentation with a work-up including CT scan of her brain. Patient was having convulsive type episode upon presentation and was given 2 mg of IV Ativan. The episode stopped prior to patient receiving Ativan and she did not have a very long if at all postictal period. She was able to answer all questions appropriately. There was reported 4-5 similar episodes today in a short amount of time. Labs were reviewed without significant findings. Do not think she needs repeat head CT as she appears to be neurologically intact with no reported signs or episodes of trauma since that CT scan 2 days ago.Patient did not have any further episodes. Discussed with on- call neurologist for patient's neuro who recommends starting her on Keppra until she is seen in the outpatient clinic. Patient is agreeable to this.Discussed usual seizure precautions. Patient and spouse are counseled on concerning symptoms to return for. 1223 - Discussed with on-call neurologist, Dr. Barr. Recommends Keppra 500 mg twice daily and will pass on the message to Dr. Myers for close follow-up. Departure - Departure Disposition: 01 Home, Self Care Clinical Impression: Seizure-like activity Condition: Stable Instructions: ED Seizure New Onset Unk Cause Prescriptions: Levetiracetam [Keppra] 500 mg PO BID #60 tablet Comments: You have had several episodes which are concerning for seizures. It is unclear whether these are true seizures Or related to another condition. After speaking to the on-call neurologist for Dr. Myers, we have started you on an antiseizure medication called Keppra. I have sent this prescription to [facility] in [place]. We will take this medication twice a day until you are seen by your neurologist. I would call Dr. Myers's office today to arrange for close follow-up. Return to the ER with any new or worsening symptoms. Do not drive until you are cleared by your neurologist. Do not swim or take a bath alone. Discharge Date/Time: 04/30/22 13:01
[2022-04-30 11:48] LABS: THYROID STIMULATING HORMONE 2.56 uIU/mL (0.34-5.60)
[2022-04-30 11:50] LABS: FREE T4 (FREE THYROXINE) 0.65 ng/dL (0.58-1.64)
[2022-04-30 12:16] LABS: HCG,QUALITATIVE BLOOD NEGATIVE
[2022-04-30] MEDS ORDERED: levETIRAcetam 250 MG TABLET PO STA (12:26)
[2022-04-30 12:53] VITALS: BP 97/62
== END 2022-04-30 13:01 | disposition home or self-care (01) ==
LOC: EDUNIT# → ED 10:35
DX: R56.9 Unspecified convulsions (principal)
CPT/HCPCS: 36415; 80053; 80320; 83690; 83735; 84439; 84443; 84703; 85025; 93005; 96374; 99284; A9270; J2060

== ENCOUNTER 2022-06-27 13:33 | Emergency (ER) | payer OTHER ==
--- OUTSIDE RECORDS SUMMARY | 2022-06-27 13:41 | EXTERNAL MEDICAL SUMMARY RPT | Continuity of Care Document ---
:1985 Author Organization [facility] Address [address] [place] [address] Phone Care Team Providers Name Role Phone Fabby Morgan Analia Unavailable Unavailable Allergies No information. Encounters No information. Functional Status No information. Immunizations No information. Medications date description facility 2022-05-03 00:00 esomeprazole magnesium [facility] 2022-05-03 00:00 propranolol [facility] 2022-05-03 00:00 ondansetron [facility] 2022-05-03 00:00 oxycodone-acetaminophen [facility] 2022-05-03 00:00 escitalopram oxalate [facility] 2022-05-03 00:00 escitalopram oxalate [facility] 2022-05-03 00:00 dicyclomine [facility] 2022-05-03 00:00 prednisone [facility] 2022-05-03 00:00 oxycodone-acetaminophen [facility] 2022-05-03 00:00 acyclovir [facility] 2022-05-03 00:00 oxycodone-acetaminophen [facility] 2022-05-03 00:00 prednisone [facility] 2022-05-03 00:00 propranolol [facility] 2022-05-03 00:00 acyclovir [facility] 2022-05-03 00:00 sucralfate [facility] 2022-05-03 00:00 trazodone [facility] 2022-05-03 00:00 prednisone [facility] 2022-05-03 00:00 acyclovir [facility] 2022-05-03 00:00 lamotrigine [facility] 2022-05-03 00:00 ondansetron [facility] 2022-05-03 00:00 prednisone [facility] 2022-05-03 00:00 propranolol [facility] 2022-05-03 00:00 escitalopram oxalate [facility] 2022-05-03 00:00 escitalopram oxalate [facility] 2022-05-03 00:00 lamotrigine [facility] 2022-05-03 00:00 sucralfate [facility] 2022-05-03 00:00 dicyclomine [facility] 2022-05-03 00:00 esomeprazole magnesium [facility] 2022-05-03 00:00 sucralfate [facility] 2022-05-03 00:00 trazodone [facility] 2022-05-03 00:00 ondansetron [facility] 2022-05-03 00:00 trazodone [facility] 2022-05-03 00:00 escitalopram oxalate [facility] 2022-05-03 00:00 escitalopram oxalate [facility] 2022-05-03 00:00 sucralfate [facility] 2022-05-03 00:00 lamotrigine [facility] 2022-05-03 00:00 esomeprazole magnesium [facility] 2022-05-03 00:00 acyclovir [facility] 2022-05-03 00:00 ondansetron [facility] 2022-05-03 00:00 dicyclomine [facility] 2022-05-03 00:00 oxycodone-acetaminophen [facility] 2022-05-03 00:00 esomeprazole magnesium [facility] 2022-05-03 00:00 lamotrigine [facility] 2022-05-03 00:00 escitalopram oxalate [facility] 2022-05-03 00:00 escitalopram oxalate [facility] 2022-05-03 00:00 trazodone [facility] 2022-05-03 00:00 propranolol [facility] 2022-05-03 00:00 dicyclomine [facility] Problems No information. Procedures No information. Results/Labs No information. Social History No information. Vital Signs No information.
--- NOTE | 2022-06-27 13:48 | ED Physician Documentation ---
PD HPI SEIZURE - Stated complaint Stated Complaint: SEIZURE - Chief complaint Chief Complaint: Neuro - History obtained from History obtained from: Patient, Family (father), EMS - History of Present Illness Timing - onset: How many days ago Witnessed: Witnessed Number of seizures: Multiple (father states the patient has had about 5 known brief seizures today and 2-3 daily the past several days. No current illness change in diet, change in meds (though subsequently the patient's med bottles are inspected and she is out of diazepam 10 mg tid for the past 2-3 days).), Lasted minutes, Recovered between seizure Description of seizure activity: Generalized Injury during seizure: None Associated symptoms: No: Headache, Chest pain, Dyspnea, Nausea / vomiting History of seizures: Known seizure disorder (has neurologist Dr. Myers in [place], who has done brain mRI that was normal, and an eeg which did not show any seizure focus. still has patient on Keppra 500 mg bid that was started last month.) Contributing factors: Out of meds (her diazepam the past 2-3 days. still has the keppra.) Similar symptoms before: Diagnosis (being treated for seizures, but has had normal EEG (not definitive) and seizure pattern is quick recovery and no injuries. Dr. Myers considers if these are FND and nonepileptic seizures.) Recently seen: Emergency Dept Review of Systems Constitutional: denies: Fever, Chills Nose: denies: Rhinorrhea / runny nose, Congestion Throat: denies: Sore throat Respiratory: denies: Cough GI: denies: Vomiting, Diarrhea Neurologic: denies: Focal weakness, Confused (has pretty quick return to normal conversation after seizure activity here.), Altered mental status, Head injury PD PAST MEDICAL HISTORY - Past Medical History Cardiovascular: None Respiratory: None Neuro: Seizure disorder, Fainting, Other Endocrine/Autoimmune: HyPERthyroidism GI: Hemorrhoids, Other GAME ARTIST: None : None HEENT: None Psych: Depression, Anxiety Musculoskeletal: None Derm: None - Past Surgical History Past Surgical History: Yes General: Appendectomy, Other /GAME ARTIST: section, Hysterectomy - Present Medications Home Medications: Ambulatory Orders Medication Instructions Recorded Confirmed Gabapentin [Neurontin] 300 mg PO TID 09/19/20 04/30/22 diazePAM [Valium] 10 mg PO TID PRN 07/08/21 04/30/22 PARoxetine [Paxil] 10 mg PO DAILY 04/04/22 04/30/22 Propranolol [Inderal] 10 mg PO TID PRN 04/04/22 04/30/22 traZODone [Desyrel] 50 - 100 mg PO HS PRN 04/28/22 04/30/22 Levetiracetam [Keppra] 500 mg PO BID #60 tablet 04/30/22 - Allergies Allergies/Adverse Reactions: Allergies Allergy/AdvReac Type Severity Reaction Status Date / Time morphine Allergy Respiratory Verified 06/27/22 13:45 - Social History Does the pt smoke?: No Smoking Status: Never smoker Does the pt drink ETOH?: Yes Does the pt have substance abuse?: Yes - Immunizations Immunizations are current?: Yes - POLST Patient has POLST: No PD ED PE NORMAL - Vitals Vital signs reviewed: Yes - General General: Alert and oriented X 3, No acute distress, Well developed/nourished - HEENT HEENT: Atraumatic, PERRL, EOMI (no nystagmus seem), Pharynx benign (no tongue nor lip lesions. ) - Neck Neck: Supple, no meningeal sign, No bony TTP, No adenopathy - Cardiac Cardiac: RRR, No murmur, Other (left chest wall with Ziopatch in place to eval for fainting episodes and POTs.) - Respiratory Respiratory: Clear bilaterally - Abdomen Abdomen: Soft, Non tender - Derm Derm: Normal color, Warm and dry - Extremities Extremities: Normal ROM s pain - Neuro Neuro: Alert and oriented X 3 (presents to ER with clonic tenses muscles of hands clenched, arms stiff, and resists eye opening. she is awake withoin minute or so of arrival and then is awake and conversant within the minute. Speaking coherently.), No motor deficit, Normal speech - Psych Psych: Normal affect Results - Vitals Vitals: Vital Signs - 24 hr 06/27/22 06/27/22 06/27/22 13:41 13:52 14:17 Temperature 36.7 C Heart Rate 67 73 62 Respiratory 20 23 26 H Rate Blood Pressure 116/70 99/71 90/77 O2 Saturation 99 100 97 06/27/22 06/27/22 06/27/22 14:30 15:00 16:36 Temperature Heart Rate 75 71 75 Respiratory 24 19 20 Rate Blood Pressure 111/86 H 125/83 H 113/78 O2 Saturation 98 100 95 Oxygen O2 Source Room air - Labs Labs: Laboratory Tests 06/27/22 06/27/22 06/27/22 14:21 14:21 14:21 WBC 7.6 RBC 4.41 Hgb 13.5 Hct 40.9 MCV 92.7 MCH 30.6 MCHC 33.0 RDW 11.2 L Plt Count Neut # (Auto) 4.8 Lymph # (Auto) 2.1 [place] # (Auto) 0.4 Eos # (Auto) 0.2 Baso # (Auto) 0.1 Absolute Nucleated RBC 0.00 Nucleated RBC % 0.0 Manual Slide Review Indicated Platelet Estimate NORMAL (130-450,000) Platelet Morphology PLATELET CLUMPING Sodium Potassium Chloride Carbon Dioxide Anion Gap BUN Creatinine Estimated GFR (MDRD) Glucose Lactic Acid 1.5 Calcium Magnesium Total Bilirubin AST ALT Alkaline Phosphatase Total Protein Albumin Globulin Albumin/Globulin Ratio Lipase Prolactin 19.80 Ethyl Alcohol 06/27/22 15:10 WBC RBC Hgb Hct MCV MCH MCHC RDW Plt Count Neut # (Auto) Lymph # (Auto) [place] # (Auto) Eos # (Auto) Baso # (Auto) Absolute Nucleated RBC Nucleated RBC % Manual Slide Review Platelet Estimate Platelet Morphology Sodium 137 Potassium 3.9 Chloride 102 Carbon Dioxide 28 Anion Gap 7.0 BUN 10 Creatinine 0.7 Estimated GFR (MDRD) 94 Glucose 98 Lactic Acid Calcium 9.0 Magnesium 1.8 Total Bilirubin 0.6 AST 24 ALT 19 Alkaline Phosphatase 47 Total Protein 7.2 Albumin 4.2 Globulin 3.0 Albumin/Globulin Ratio 1.4 Lipase 45 Prolactin Ethyl Alcohol < 5.0 PD Medical Decision Making - ED course Complexity details: re-evaluated patient, considered differential, d/w patient, d/w family (mother and father related their descriptions of the seizure events. self limited and no injuries. recovers promptly most of the time. ), d/w customer care consultant (Dr. Myers, her Neurologist, who advises increasing Keppra to 750 mg BID from current 500 mg BID. Continue other meds. follow up in office. ) Drug Therapy Requiring Monitoring for Toxicity: given Keppra 500 mg iv to supplemtn usual dose and was administered without problems. given Diazepam 2 mg IV as well as there could be some element of benzo withdrawal as well as the seizure/psuedoseizure. Departure - Departure Disposition: Home, Self Care Clinical Impression: Witnessed seizure-like activity, History of seizures Condition: Stable Record reviewed to determine appropriate education?: Yes Follow-Up: NIKKI MYERS MD [Physician No Access] - Comments: Your basic blood tests of a chemistry panel and blood counts as well as thyroid screen are normal here. Dr. Myers wanted to have me conveyed to you that the EEG you would had done did not show any obvious seizure focus. Dr. Myers does want to continue with the lipid to serotonin antiseizure medicine and actually increase it to 750 mg twice daily from the current 500 mg twice daily (so essentially 1-1/2 tablets twice a day). Continue your other usual medicines. Be sure to stay well-hydrated. In particular be sure to medicinal plant picker your refill for the diazepam and resume taking that. Being without that could have allowed for the seizure activity to develop more easily. Follow-up with Dr. Myers at the upcoming appointment in July as scheduled. Cont act the office if needed if you are still having increased number of seizures. Discharge Date/Time: 06/27/22 16:36
[2022-06-27] MEDS ORDERED: SODIUM CHLORIDE 0.9% 1,000 ML IV STA (13:50)
[2022-06-27] MEDS ORDERED: diazePAM INJ 5 MG/ML SYRINGE IVP STA (13:50)
[2022-06-27] MEDS ORDERED: levETIRAcetam 500 MG/5 ML VIAL IVP STA (13:50)
[2022-06-27 14:28] LABS: BASOPHILS # (AUTO) 0.1 10^3/uL (0.0-0.1); BASOPHILS % (AUTO) 0.7 %; EOSINOPHILS # (AUTO) 0.2 10^3/uL (0.0-0.7); EOSINOPHILS % (AUTO) 2.2 %; HCT - HEMATOCRIT 40.9 % (37.0-47.0); HGB - HEMOGLOBIN 13.5 g/dL (12.0-16.0); LYMPHOCYTES # (AUTO) 2.1 10^3/uL (1.5-3.5); LYMPHOCYTES % (AUTO) 28.3 %; MEAN CORPUSCULAR HEMOGLOBIN 30.6 pg (27.0-31.0); MEAN CORPUSCULAR VOLUME 92.7 fL (81.0-99.0); MONOCYTES # (AUTO) 0.4 10^3/uL (0.0-1.0); MONOCYTES % (AUTO) 5.6 %; NEUTROPHILS # (AUTO) 4.8 10^3/uL (1.5-6.6); NEUTROPHILS % (AUTO) 63.1 %; RED BLOOD COUNT 4.41 10^6/uL (4.20-5.40); RED CELL DISTRIBUTION WIDTH 11.2 % (12.0-15.0); WHITE BLOOD COUNT 7.6 x10^3/uL (4.8-10.8)
[2022-06-27] MEDS ORDERED: KETOROLAC 15 MG/ML VIAL IVP STA (14:36)
[2022-06-27 14:58] LABS: PLATELET ESTIMATE, MANUAL NORMAL (130-450,000) (NORMAL); PLATELET MORPHOLOGY PLATELET CLUMPING (NORMAL); SLIDE REVIEW? Indicated
[2022-06-27 15:28] LABS: ALBUMIN 4.2 g/dL (3.2-5.5); ALBUMIN/GLOBULIN RATIO 1.4 (1.0-2.2); ALKALINE PHOSPHATASE 47 IU/L (42-121); ALT ALANINE AMINOTRANSFERASE 19 IU/L (10-60); AST ASPARTATE AMINOTRANSFERASE 24 IU/L (10-42); BILIRUBIN,TOTAL 0.6 mg/dL (0.2-1.0); BUN - BLOOD UREA NITROGEN 10 mg/dL (6-20); CARBON DIOXIDE - CO2 28 mmol/L (21-32); CHLORIDE 102 mmol/L (101-111); CREATININE 0.7 mg/dL (0.4-1.0); ETOH - ETHANOL < 5.0 mg/dL; GFR - MDRD 94 (>89); GLUCOSE 98 mg/dL (70-100); LIPASE 45 U/L (22-51); MAGNESIUM 1.8 mg/dL (1.7-2.8); POTASSIUM 3.9 mmol/L (3.5-5.0); SODIUM 137 mmol/L (135-145); TOTAL PROTEIN 7.2 g/dL (6.7-8.2)
[2022-06-27 16:37] VITALS: BP 113/78
== END 2022-06-27 16:36 | disposition home or self-care (01) ==
LOC: EDUNIT# → ED 13:33
DX: R56.9 Unspecified convulsions (principal); T42.4X6A Underdosing of benzodiazepines, initial encounter; Z91.138 Patient's unintentional underdosing of medication regimen for other reason
CPT/HCPCS: 36415; 80053; 80320; 83605; 83690; 83735; 84146; 85025; 96361; 96374; 96375; 99284

== ENCOUNTER 2022-08-03 13:21 | Emergency (ER) | payer OTHER ==
[2022-08-03] MEDS ORDERED: LORazepam 2 MG/ML VIAL ONE ×2 (13:27→13:30)
[2022-08-03 13:29] LABS: BASOPHILS # (AUTO) 0.1 10^3/uL (0.0-0.1); BASOPHILS % (AUTO) 0.9 %; EOSINOPHILS # (AUTO) 0.4 10^3/uL (0.0-0.7); EOSINOPHILS % (AUTO) 4.2 %; HCT - HEMATOCRIT 41.1 % (37.0-47.0); HGB - HEMOGLOBIN 14.1 g/dL (12.0-16.0); LYMPHOCYTES # (AUTO) 3.5 10^3/uL (1.5-3.5); LYMPHOCYTES % (AUTO) 35.3 %; MEAN CORPUSCULAR HEMOGLOBIN 31.5 pg (27.0-31.0); MEAN CORPUSCULAR HGB CONC 34.3 g/dL (32.0-36.0); MEAN CORPUSCULAR VOLUME 91.7 fL (81.0-99.0); MEAN PLATELET VOLUME 11.2 fL (7.9-10.8); MONOCYTES # (AUTO) 0.7 10^3/uL (0.0-1.0); NEUTROPHILS # (AUTO) 5.2 10^3/uL (1.5-6.6); NEUTROPHILS % (AUTO) 52.2 %; PLT - PLATELET COUNT 188 10^3/uL (130-450); RED BLOOD COUNT 4.48 10^6/uL (4.20-5.40); RED CELL DISTRIBUTION WIDTH 11.6 % (12.0-15.0); WHITE BLOOD COUNT 9.9 x10^3/uL (4.8-10.8)
[2022-08-03] MEDS ORDERED: levETIRAcetam INJ 1,000 MG in SODIUM CHLORIDE 0.9% 100ML 100 ML IV STA (13:35)
[2022-08-03 13:36] LABS: MUDS CUTOFF CONCENTRATIONS CUTOFF CONC BELOW:
[2022-08-03 13:37] LABS: BILIRUBIN,URINE NEGATIVE (NEGATIVE); GLUCOSE, URINE (UA) NEGATIVE (NEGATIVE); KETONES,URINE (UA) NEGATIVE (NEGATIVE); LEUKOCYTE ESTERASE, URINE NEGATIVE (NEGATIVE); NITRITE,URINE NEGATIVE (NEGATIVE); OCCULT BLOOD,URINE SMALL (NEGATIVE); PROTEIN,URINE NEGATIVE (NEGATIVE); UROBILINOGEN,URINE 0.2 (NORMAL) E.U./dL (NORMAL)
[2022-08-03 13:38] LABS: CLARITY,URINE CLEAR (CLEAR); HCG UR QUAL NEGATIVE
[2022-08-03 13:42] LABS: BACTERIA,URINE Rare /HPF (None Seen); RBC,URINE 0-5 /HPF (0-5); SQUAMOUS EPITHELIAL CELL,UR NONE SEEN (<= Few); WBC,URINE 0-3 /HPF (0-5)
--- NOTE | 2022-08-03 13:43 | ED Physician Documentation ---
History of Present Illness - Stated complaint Stated Complaint: SEIZURES/SOA - Chief complaint Chief Complaint: Neuro - Additonal information Additional information: 37-year-old female was brought to the emergency department via private vehicle by her boyfriend for seizure like activity. Her boyfriend states that she began having seizures at about 1230. The patient had 3 seizures at home one of them lasting as long as 5 minutes. 1 seizure on arrival to the ED parking lot and another 2 other seizure-like events immediately on presentation to the ER. 1325: Patient was found to have a generalized tonic-clonic shaking of her extremities with clenched fists and mouth. Immediately brought back to the emergency department. An IV was rapidly established. At 1325 she was administered 2 mg of Ativan approximately 3 minutes later the seizure appeared to subside. However again 1329 she began having generalized shaking and movement. She appeared rigid. A second dose of 2 mg of Ativan was administered. It should be noted that during this second event when nursing staff were attempting an in and out catheterization she said "no". Shortly after the second dose of Ativan the patient was able to open her eyes at the bedside and follow commands. She was unsure of her whereabouts and did not know why she was here. She appeared nonfocal. She had a heart rate in the 90s. She was normotensive in the 120s over 70's Her boyfriend/partner is at the bedside. He reports that he gives her all her medicines and she does not miss doses. 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 Meds: Keppra 750 mg twice daily, gabapentin 300 mg 3 times daily, propanolol 10 mg 3 times daily, diazepam 10 mg 3 times daily. History is obtained from her boyfriend/partner at the bedside. Reliable historian. No recent illness. Denies alcohol use. No falls or trauma recently. no fevers Review of Systems Unable to obtain: Other (seizure like activity) PD PAST MEDICAL HISTORY - Past Medical History Past Medical History: Yes Cardiovascular: None Respiratory: None Neuro: Seizure disorder, Fainting, Other Endocrine/Autoimmune: HyPERthyroidism GI: Hemorrhoids, Other ENTERPRISE APPLICATIONS MANAGER: None : None HEENT: None Psych: Depression, Anxiety Musculoskeletal: None Derm: None - Past Surgical History Past Surgical History: Yes General: Appendectomy, Other /ENTERPRISE APPLICATIONS MANAGER: section, Hysterectomy - Present Medications Home Medications: Ambulatory Orders Medication Instructions Recorded Confirmed Gabapentin [Neurontin] 300 mg PO TID 09/19/20 08/03/22 diazePAM [Valium] 10 mg PO TID PRN 07/08/21 08/03/22 PARoxetine [Paxil] 10 mg PO DAILY 04/04/22 08/03/22 Propranolol [Inderal] 10 mg PO TID PRN 04/04/22 08/03/22 traZODone [Desyrel] 50 - 100 mg PO HS PRN 04/28/22 08/03/22 Levetiracetam [Keppra] 750 mg PO BID 08/03/22 08/03/22 - Allergies Allergies/Adverse Reactions: Allergies Allergy/AdvReac Type Severity Reaction Status Date / Time morphine Allergy Respiratory Verified 08/03/22 13:25 - Social History Does the pt smoke?: No Smoking Status: Never smoker Does the pt drink ETOH?: Yes Does the pt have substance abuse?: Yes - Immunizations Immunizations are current?: Yes - POLST Patient has POLST: No PD ED PE EXPANDED - General General: Unresponsive - Cardiac Cardiac: Regular Rate, Radial strong equal, Pedal strong equal, Cap refill < 2 sec. No: Murmur Present - Respiratory Respiratory: Clear to ausultation dom. No: Distress, Labored - Abdomen Abdomen: Normal Bowel sounds. No: Tender to palpation - Derm Derm: Normal color, Warm and dry. No: Rash - Extremities Extremities: No: Deformity, Tenderness - GCS Eye Opening: Spontaneous Motor: Obeys Commands Verbal: Oriented Total: 15 Results - Vitals Vitals: Vital Signs - 24 hr 08/03/22 08/03/22 08/03/22 13:22 14:04 14:34 Temperature 37.2 C Heart Rate 78 66 82 Respiratory 27 H 29 H 22 Rate Blood Pressure 126/89 H 129/81 H 92/60 O2 Saturation 98 97 97 08/03/22 08/03/22 08/03/22 15:00 15:49 16:08 Temperature 36.9 C Heart Rate 69 63 75 Respiratory 20 23 12 Rate Blood Pressure 94/59 L 95/59 L 115/88 H O2 Saturation 97 98 100 Oxygen O2 Source Room air - EKG (time done) 1321 EKG releavant findings:: EKG personally interpreted by author of this note. Relevant findings are: Rate: Rate (enter#) (76) Rhythm: NSR Compare to prior EKG: Other (Difficult to interpret EKG given generalized artifact) - Labs Labs: Laboratory Tests 08/03/22 08/03/22 08/03/22 13:23 13:23 13:23 WBC 9.9 RBC 4.48 Hgb 14.1 Hct 41.1 MCV 91.7 MCH 31.5 H MCHC 34.3 RDW 11.6 L Plt Count 188 MPV 11.2 H Neut # (Auto) 5.2 Lymph # (Auto) 3.5 [place] # (Auto) 0.7 Eos # (Auto) 0.4 Baso # (Auto) 0.1 Absolute Nucleated RBC 0.00 Nucleated RBC % 0.0 Sodium 136 Potassium 4.0 Chloride 105 Carbon Dioxide 25 Anion Gap 6.0 BUN 11 Creatinine 0.7 Estimated GFR (MDRD) 94 Glucose 103 H Calcium 8.9 Total Bilirubin 0.7 AST 38 ALT 52 Alkaline Phosphatase 62 Total Protein 7.3 Albumin 4.1 Globulin 3.2 Albumin/Globulin Ratio 1.3 Lipase 44 TSH 1.99 Urine Color Urine Clarity Urine pH Ur Specific Stryker Urine Protein Urine Glucose (UA) Urine Ketones Urine Occult Blood Urine Nitrite Urine Bilirubin Urine Urobilinogen Ur Leukocyte Esterase Urine RBC Urine WBC Ur Squamous Epith Cells Urine Bacteria Ur Microscopic Review Urine Culture Comments Urine HCG, Qual Nasal Adenovirus (PCR) Nasal B. parapertussis DNA (PCR) Nasal Coronavir 229E PCR Nasal Coronavir HKU1 PCR Nasal Coronavir NL63 PCR Nasal Coronavir OC43 PCR Nasal Enterovir/Rhinovir PCR Nasal Influenza B PCR Nasal Influenza A PCR Nasal Parainfluen 1 PCR Nasal Parainfluen 2 PCR Nasal Parainfluen 3 PCR Nasal Parainfluen 4 PCR Nasal RSV (PCR) Nasal B.pertussis DNA PCR Nasal C.pneumoniae (PCR) Abdias Human Metapneumo PCR Nasal M.pneumoniae (PCR) Nasal SARS-CoV-2 (PCR) Salicylates < 6.0 Urine Opiates Screen Ur Oxycodone Screen Urine Methadone Screen Ur Propoxyphene Screen Acetaminophen < 10 L Ur Barbiturates Screen Ur Tricyclics Screen Ur Phencyclidine Scrn Ur Amphetamine Screen U Methamphetamines Scrn U Benzodiazepines Scrn Urine Cocaine Screen U Cannabinoids Screen Ethyl Alcohol < 5.0 08/03/22 08/03/22 13:30 13:30 WBC RBC Hgb Hct MCV MCH MCHC RDW Plt Count MPV Neut # (Auto) Lymph # (Auto) [place]icks[place] # (Auto) Eos # (Auto) Baso # (Auto) Absolute Nucleated RBC Nucleated RBC % Sodium Potassium Chloride Carbon Dioxide Anion Gap BUN Creatinine Estimated GFR (MDRD) Glucose Calcium Total Bilirubin AST ALT Alkaline Phosphatase Total Protein Albumin Globulin Albumin/Globulin Ratio Lipase TSH Urine Color YELLOW Urine Clarity CLEAR Urine pH 6.0 Ur Specific Stryker 1.020 Urine Protein NEGATIVE Urine Glucose (UA) NEGATIVE Urine Ketones NEGATIVE Urine Occult Blood SMALL H Urine Nitrite NEGATIVE Urine Bilirubin NEGATIVE Urine Urobilinogen 0.2 (NORMAL) Ur Leukocyte Esterase NEGATIVE Urine RBC 0-5 Urine WBC 0-3 Ur Squamous Epith Cells NONE SEEN Urine Bacteria Rare Ur Microscopic Review INDICATED Urine Culture Comments NOT INDICATED Urine HCG, Qual NEGATIVE Nasal Adenovirus (PCR) NOT DETECTED Nasal B. parapertussis DNA (PCR) NOT DETECTED Nasal Coronavir 229E PCR NOT DETECTED Nasal Coronavir HKU1 PCR NOT DETECTED Nasal Coronavir NL63 PCR NOT DETECTED Nasal Coronavir OC43 PCR NOT DETECTED Nasal Enterovir/Rhinovir PCR NOT DETECTED Nasal Influenza B PCR NOT DETECTED Nasal Influenza A PCR NOT DETECTED Nasal Parainfluen 1 PCR NOT DETECTED Nasal Parainfluen 2 PCR NOT DETECTED Nasal Parainfluen 3 PCR NOT DETECTED Nasal Parainfluen 4 PCR NOT DETECTED Nasal RSV (PCR) NOT DETECTED Nasal B.pertussis DNA PCR NOT DETECTED Nasal C.pneumoniae (PCR) NOT DETECTED Abdias Human Metapneumo PCR NOT DETECTED Nasal M.pneumoniae (PCR) NOT DETECTED Nasal SARS-CoV-2 (PCR) NOT DETECTED Salicylates Urine Opiates Screen NEGATIVE Ur Oxycodone Screen NEGATIVE Urine Methadone Screen NEGATIVE Ur Propoxyphene Screen NEGATIVE Acetaminophen Ur Barbiturates Screen NEGATIVE Ur Tricyclics Screen NEGATIVE Ur Phencyclidine Scrn NEGATIVE Ur Amphetamine Screen NEGATIVE U Methamphetamines Scrn NEGATIVE U Benzodiazepines Scrn POSITIVE H Urine Cocaine Screen NEGATIVE U Cannabinoids Screen POSITIVE H Ethyl Alcohol PD Medical Decision Making - ED course Complexity details: reviewed results, re-evaluated patient, considered differential, d/w patient, d/w family ED course: 37-year-old female who Who has a history of nonepileptic psychogenic seizures as well as dystonia presents the emergency department for 4 witnessed seizure-like events at home and to here in the emergency department. She presented with rigid tonic movements of all 4 extremities. There was no loss of bowel or bladder function. It should be noted that when the nursing staff attempted an in and out catheter during one of the events she was able to vocalize no. However given the concerns for seizures initially she was administered 2 mg of Ativan twice. Following this she had a return to her usual mental status about 30 minutes later. I did obtain CBC and electrolytes as well as urine drug screen. Per my interpretation no acute or unexpected findings. She is benzodiazepine and cannabis positive which she is prescribed and admits to use of. We did give her 1000 g of Keppra here in the emergency department though her boyfriend and partner at the bedside states that she does not miss Her doses at home. She has resolved and is with no focal neurodeficits. She will be discharged home with Instructions to follow closely with her neurologist. The usual emergent return precautions discussed Departure - Departure Disposition: 01 Home, Self Care Clinical Impression: Witnessed seizure-like activity Condition: Stable Record reviewed to determine appropriate education?: Yes Comments: Youcame to the emergency department today because you had a number of witnessed seizure-like events at home and here in the emergency department. In order to control your symptoms you were given 2 doses of Ativan. We also gave you 1000 g of Keppra IV. Your labs and electrolytes today are essentially unremarkable. You should continue to take your usual medications for your seizure disorder as well as dystonia at home. Please discuss this ED visit with your neurologist. Return to the ER if worsening
[2022-08-03] MEDS ORDERED: SODIUM CHLORIDE 0.9% 1,000 ML IV STA (13:44)
[2022-08-03 13:45] LABS: ACETAMINOPHEN < 10 ug/mL (10-30); ALBUMIN 4.1 g/dL (3.2-5.5); ALBUMIN/GLOBULIN RATIO 1.3 (1.0-2.2); ALKALINE PHOSPHATASE 62 IU/L (42-121); ALT ALANINE AMINOTRANSFERASE 52 IU/L (10-60); AST ASPARTATE AMINOTRANSFERASE 38 IU/L (10-42); BILIRUBIN,TOTAL 0.7 mg/dL (0.2-1.0); BUN - BLOOD UREA NITROGEN 11 mg/dL (6-20); CALCIUM 8.9 mg/dL (8.5-10.3); CARBON DIOXIDE - CO2 25 mmol/L (21-32); CHLORIDE 105 mmol/L (101-111); CREATININE 0.7 mg/dL (0.4-1.0); ETOH - ETHANOL < 5.0 mg/dL; GFR - MDRD 94 (>89); GLUCOSE 103 mg/dL (70-100); LIPASE 44 U/L (22-51); SALICYLATE < 6.0 mg/dL; SODIUM 136 mmol/L (135-145); TOTAL PROTEIN 7.3 g/dL (6.7-8.2)
[2022-08-03] MEDS ORDERED: LORazepam 2 MG/ML VIAL IVP STA ×2 (13:49)
[2022-08-03 13:54] LABS: AMPHETAMINE SCREEN,URINE NEGATIVE (NEGATIVE); BARBITURATE SCREEN,UR NEGATIVE (NEGATIVE); BENZODIAZEPINES SCREEN, URINE POSITIVE (NEGATIVE); COCAINE SCREEN URINE NEGATIVE (NEGATIVE); METHADONE SCREEN, URINE NEGATIVE (NEGATIVE); METHAMPHETAMINES SCREEN, URINE NEGATIVE (NEGATIVE); OPIATE SCREEN, URINE NEGATIVE (NEGATIVE); OXYCODONE SCREEN, URINE NEGATIVE (NEGATIVE); PROPOXYPHENE SCREEN, URINE NEGATIVE (NEGATIVE); THC CANNABINOID SCREEN, URINE POSITIVE (NEGATIVE); TRICYCLIC ANTIDEPRESSANT,URINE NEGATIVE (NEGATIVE)
[2022-08-03 15:49] LABS: B. PARAPERTUSSIS- RESP PCR PAN NOT DETECTED; B. PERTUSSIS- RESP PCR PANEL NOT DETECTED; C. PNEUMONIAE- RESP PCR PANEL NOT DETECTED; CORONAVIRUS 229E-RESP PCR NOT DETECTED; CORONAVIRUS HKU1-RESP PCR NOT DETECTED; CORONAVIRUS NL63-RESP PCR NOT DETECTED; CORONAVIRUS OC43-RESP PCR NOT DETECTED; HUMAN METAPNEUMOVIRUS NOT DETECTED; INFLUENZA A- RESP PCR PANEL NOT DETECTED; INFLUENZA B - RESP PCR PANEL NOT DETECTED; M. PNEUMONIAE- RESP PCR PANEL NOT DETECTED; PARAINFLUENZA VIRUS 1 NOT DETECTED; PARAINFLUENZA VIRUS 2 NOT DETECTED; PARAINFLUENZA VIRUS 3 NOT DETECTED; PARAINFLUENZA VIRUS 4 NOT DETECTED; RHINOVIRUS/ENTEROVIRUS NOT DETECTED; RSV- RESP PCR PANEL NOT DETECTED; SARS-CoV-2 -RESP PCR PANEL NOT DETECTED
[2022-08-03 16:09] VITALS: BP 115/88
== END 2022-08-03 16:30 | disposition home or self-care (01) ==
LOC: ED 13:21
DX: R56.9 Unspecified convulsions (principal); Z20.822 Contact with and (suspected) exposure to COVID-19; Z79.899 Other long term (current) drug therapy
CPT/HCPCS: 36415; 80053; 80306; 80307; 80320; 80329; 81001; 81025; 83690; 84443; 85025; 87633; 96365; 96375; 99284; J2060; 81003; 87086

== ENCOUNTER 2022-08-13 09:45 | Outpatient (CLI) | payer OTHER ==
[2022-08-13 21:31] LABS: CHLAMYDIA TRACHOMATIS DNA NEGATIVE (NEGATIVE); NEISSERIA GONORRHOEAE DNA NEGATIVE (NEGATIVE)
[2022-08-13 22:59] LABS: BACTERIAL VAGINOSIS DNA POSITIVE (NEGATIVE)
[2022-08-13 23:00] LABS: CANDIDA GLABRATA DNA NEGATIVE (NEGATIVE); CANDIDA GROUP DNA NEGATIVE (NEGATIVE); CANDIDA KRUSEI DNA NEGATIVE (NEGATIVE); TRICHOMONAS VAGINALIS DNA NEGATIVE (NEGATIVE)
== END 2022-08-13 10:00 | disposition home or self-care (01) ==
LOC: LAB.N 09:45
PROVIDERS: ATTEND Physician Assistant
DX: N89.8 Other specified noninflammatory disorders of vagina (principal)
CPT/HCPCS: 81514; 87491; 87591; 87661

== ENCOUNTER 2022-08-28 14:26 | Outpatient (CLI) | payer OTHER | END 2022-08-28 23:59 | disposition critical access hospital (66) | LOC: EMS 14:26 | DX: R56.9 Unspecified convulsions (principal) | CPT/HCPCS: A0425; A0429 ==

== ENCOUNTER 2022-08-28 14:39 | Emergency (ER) | payer OTHER ==
[2022-08-28 14:44] VITALS: BP 118/82
[2022-08-28] MEDS ORDERED: KETOROLAC 30 MG/ML VIAL IVP STA (14:52)
[2022-08-28] MEDS ORDERED: SODIUM CHLORIDE 0.9% 1,000 ML IV STA (14:52)
[2022-08-28 14:55] LABS: BASOPHILS # (AUTO) 0.1 10^3/uL (0.0-0.1); EOSINOPHILS # (AUTO) 0.5 10^3/uL (0.0-0.7); EOSINOPHILS % (AUTO) 7.9 %; HCT - HEMATOCRIT 40.3 % (37.0-47.0); HGB - HEMOGLOBIN 13.6 g/dL (12.0-16.0); LYMPHOCYTES # (AUTO) 2.2 10^3/uL (1.5-3.5); LYMPHOCYTES % (AUTO) 31.9 %; MEAN CORPUSCULAR HEMOGLOBIN 30.8 pg (27.0-31.0); MEAN CORPUSCULAR HGB CONC 33.7 g/dL (32.0-36.0); MEAN CORPUSCULAR VOLUME 91.4 fL (81.0-99.0); MEAN PLATELET VOLUME 10.4 fL (7.9-10.8); MONOCYTES # (AUTO) 0.5 10^3/uL (0.0-1.0); MONOCYTES % (AUTO) 7.8 %; NEUTROPHILS # (AUTO) 3.5 10^3/uL (1.5-6.6); NEUTROPHILS % (AUTO) 51.1 %; PLT - PLATELET COUNT 168 10^3/uL (130-450); RED BLOOD COUNT 4.41 10^6/uL (4.20-5.40); RED CELL DISTRIBUTION WIDTH 11.6 % (12.0-15.0); WHITE BLOOD COUNT 6.8 x10^3/uL (4.8-10.8)
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
[2022-08-28 15:10] LABS: ALBUMIN/GLOBULIN RATIO 1.3 (1.0-2.2); BILIRUBIN,TOTAL 0.5 mg/dL (0.2-1.0); CALCIUM 9.3 mg/dL (8.5-10.3); CREATININE 0.8 mg/dL (0.4-1.0); POTASSIUM 4.4 mmol/L (3.5-5.0); TOTAL PROTEIN 7.1 g/dL (6.7-8.2)
[2022-08-28 15:27] LABS: THYROID STIMULATING HORMONE 2.12 uIU/mL (0.34-5.60)
[2022-08-28 15:30] LABS: FREE T4 (FREE THYROXINE) 0.78 ng/dL (0.58-1.64)
== END 2022-08-28 16:21 | disposition home or self-care (01) ==
LOC: ED 14:39
DX: R56.9 Unspecified convulsions (principal)
CPT/HCPCS: 36415; 80053; 83690; 84439; 84443; 85025; 96374; 99283

== ENCOUNTER 2022-09-04 13:45 | Emergency (ER) | payer OTHER ==
--- NOTE | 2022-09-04 14:07 | ED Physician Documentation ---
PD HPI MHE - Stated complaint Stated Complaint: SI - Chief complaint Chief Complaint: MHE - History obtained from History obtained from: Patient - History of Present Illness Primary symptom: Suicidal ideation, Depression. No: Suicide attempt (The patient did not have any suicide attempt but did have a very clear plan that she started acting towards. [place] She did drive up to the parking lot area and changed and turned and drove to the hospital instead for help.) Timing - onset: How many days ago (Increased depression with suicidal ideation in the last several days. She does feel she needs more intensive help and likely hospitalization.) Contributing factors: Family (She has had depression with suicidal ideation ongoing and does get counseling weekly and is on antidepressant medicines. She does have a son who lives out of state and she was hoping her son would come visit her for the summer. However the patient is currently homeless and is unable for a visit.) Similar symptoms before: Diagnosis (depression) Recently seen: Clinic (She gets counseling weekly and has seen her psychiatric provider in the last few months) Review of Systems Constitutional: denies: Fever, Chills Nose: denies: Rhinorrhea / runny nose, Congestion Throat: denies: Sore throat Respiratory: denies: Cough GI: denies: Abdominal Pain, Vomiting, Diarrhea : denies: Dysuria Neurologic: reports: Headache (mild pressure feeling). 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: None : None HEENT: None Psych: Depression, Anxiety Musculoskeletal: None Derm: None - Past Surgical History Past Surgical History: Yes General: Appendectomy, Other /SURVEILLANCE SYSTEMS ENGINEER: section, Hysterectomy - Present Medications Home Medications: Ambulatory Orders Medication Instructions Recorded Confirmed Gabapentin [Neurontin] 300 mg PO TID 09/19/20 09/04/22 diazePAM [Valium] 10 mg PO TID PRN 07/08/21 09/04/22 Propranolol [Inderal] 10 mg PO TID PRN 04/04/22 09/04/22 traZODone [Desyrel] 50 - 100 mg PO HS PRN 04/28/22 08/03/22 Levetiracetam [Keppra] 750 mg PO BID 08/03/22 09/04/22 Aripiprazole [Abilify] 1 mg PO DAILY 09/04/22 09/04/22 PARoxetine HCL [Paxil] 20 mg PO DAILY 09/04/22 09/04/22 cephALEXin [Keflex] 500 mg PO TID 5 Days #15 cap 09/04/22 - Allergies Allergies/Adverse Reactions: Allergies Allergy/AdvReac Type Severity Reaction Status Date / Time morphine Allergy Respiratory Verified 09/04/22 13:56 - Social History Does the pt smoke?: No Smoking Status: Never smoker Does the pt drink ETOH?: Yes Does the pt have substance abuse?: Yes - Immunizations Immunizations are current?: Yes - POLST Patient has POLST: No PD ED PE NORMAL - Vitals Vital signs reviewed: Yes - General General: No acute distress, Well developed/nourished, Other (tearful but pleasant and talks about her symptoms openly. ) - Neck Neck: Supple, no meningeal sign, No adenopathy - Cardiac Cardiac: RRR, No murmur - Respiratory Respiratory: Clear bilaterally - Abdomen Abdomen: Soft, Non tender - Back Back: No CVA TTP - Derm Derm: Normal color, Warm and dry - Psych Psych: No: Normal mood (depressed and tearful. ) Results - Vitals Vitals: Vital Signs - 24 hr 09/04/22 09/04/22 13:52 17:33 Temperature 36.7 C 36.8 C Heart Rate 75 72 Respiratory 18 14 Rate Blood Pressure 143/83 H 109/74 O2 Saturation 97 100 Oxygen O2 Source Room air - Labs Labs: Laboratory Tests 09/04/22 09/04/22 09/04/22 13:55 14:05 14:15 WBC 10.0 RBC 4.54 Hgb 14.0 Hct 41.7 MCV 91.9 MCH 30.8 MCHC 33.6 RDW 11.3 L Plt Count 271 MPV 10.6 Neut # (Auto) 5.9 Lymph # (Auto) 2.7 [place] # (Auto) 0.7 Eos # (Auto) 0.6 Baso # (Auto) 0.1 Absolute Nucleated RBC 0.00 Nucleated RBC % 0.0 Sodium Potassium Chloride Carbon Dioxide Anion Gap BUN Creatinine Estimated GFR (MDRD) Glucose Calcium Total Bilirubin AST ALT Alkaline Phosphatase Total Protein Albumin Globulin Albumin/Globulin Ratio Lipase TSH Urine Color DARK YELLOW Urine Clarity SL. CLOUDY Urine pH 6.0 Ur Specific [place] >=1.030 H Urine Protein NEGATIVE Urine Glucose (UA) NEGATIVE Urine Ketones NEGATIVE Urine Occult Blood TRACE-INTA Urine Nitrite POSITIVE H Urine Bilirubin NEGATIVE Urine Urobilinogen 0.2 (NORMAL) Ur Leukocyte Esterase NEGATIVE Urine RBC 0-5 Urine WBC 6-10 H Ur Squamous Epith Cells FEW Squamous Urine Bacteria Many H Ur Microscopic Review INDICATED Urine Culture Comments INDICATED Urine HCG, Qual NEGATIVE Salicylates Urine Opiates Screen NEGATIVE Ur Oxycodone Screen NEGATIVE Urine Methadone Screen NEGATIVE Ur Propoxyphene Screen NEGATIVE Acetaminophen Ur Barbiturates Screen NEGATIVE Ur Tricyclics Screen NEGATIVE Ur Phencyclidine Scrn NEGATIVE Ur Amphetamine Screen NEGATIVE U Methamphetamines Scrn NEGATIVE U Benzodiazepines Scrn POSITIVE H Urine Cocaine Screen NEGATIVE U Cannabinoids Screen POSITIVE H Ethyl Alcohol SARS-CoV-2 (PCR) NOT DETECTED 09/04/22 09/04/22 14:15 14:15 WBC RBC Hgb Hct MCV MCH MCHC RDW Plt Count MPV Neut # (Auto) Lymph # (Auto) [place] # (Auto) Eos # (Auto) Baso # (Auto) Absolute Nucleated RBC Nucleated RBC % Sodium 139 Potassium 4.1 Chloride 105 Carbon Dioxide 25 Anion Gap 9.0 BUN 13 Creatinine 0.7 Estimated GFR (MDRD) 94 Glucose 92 Calcium 9.3 Total Bilirubin 0.6 AST 24 ALT 20 Alkaline Phosphatase 64 Total Protein 7.6 Albumin 4.3 Globulin 3.3 Albumin/Globulin Ratio 1.3 Lipase 43 TSH 1.05 Urine Color Urine Clarity Urine pH Ur Specific [place] Urine Protein Urine Glucose (UA) Urine Ketones Urine Occult Blood Urine Nitrite Urine Bilirubin Urine Urobilinogen Ur Leukocyte Esterase Urine RBC Urine WBC Ur Squamous Epith Cells Urine Bacteria Ur Microscopic Review Urine Culture Comments Urine HCG, Qual Salicylates < 6.0 Urine Opiates Screen Ur Oxycodone Screen Urine Methadone Screen Ur Propoxyphene Screen Acetaminophen < 10 L Ur Barbiturates Screen Ur Tricyclics Screen Ur Phencyclidine Scrn Ur Amphetamine Screen U Methamphetamines Scrn U Benzodiazepines Scrn Urine Cocaine Screen U Cannabinoids Screen Ethyl Alcohol < 5.0 SARS-CoV-2 (PCR) PD Medical Decision Making - ED course Complexity details: considered differential, d/w patient Reviewed Lab Results: Basic labs are normal. Her urinalysis is suggestive of a UTI. She does not have symptoms but we can treat it short course therapy. ED course: The patient has a history of depression. She is homeless and lives in her car. She had an ideation of wanting to kill herself and drove to the [place]. She stopped at the parking lot and turned around, and came here. The patient is seeking help voluntarily. She is at risk for self-harm. Social work talked with the patient and she was agreeable for hospitalization and actually hoping for hospitalization. Social work was able to find placement for her at [facility]. Transfer will occur by [facility] ambulance for safety. Departure - Departure Disposition: 65 Psych Hosp/Unit DC/Xfer Clinical Impression: Depressed, Suicidal ideation, UTI (urinary tract infection) Condition: Stable Record reviewed to determine appropriate education?: Yes Instructions: ED Depression Follow-Up: Analia Sequeira ARNP [Primary Care Provider] - Prescriptions: cephALEXin [Keflex] 500 mg PO TID 5 Days #15 cap Comments: You do have signs of a bladder infection on your urine test. I would suggest cephalexin 3 times daily for 5 days for that. Otherwise continue your usual medications and any adjustments by the psychiatric providers.
[2022-09-04 14:08] LABS: MUDS CUTOFF CONCENTRATIONS CUTOFF CONC BELOW:
[2022-09-04 14:20] LABS: BASOPHILS # (AUTO) 0.1 10^3/uL (0.0-0.1); BASOPHILS % (AUTO) 1.1 %; EOSINOPHILS # (AUTO) 0.6 10^3/uL (0.0-0.7); EOSINOPHILS % (AUTO) 6.1 %; HCT - HEMATOCRIT 41.7 % (37.0-47.0); LYMPHOCYTES # (AUTO) 2.7 10^3/uL (1.5-3.5); LYMPHOCYTES % (AUTO) 26.9 %; MEAN CORPUSCULAR HEMOGLOBIN 30.8 pg (27.0-31.0); MEAN CORPUSCULAR HGB CONC 33.6 g/dL (32.0-36.0); MEAN CORPUSCULAR VOLUME 91.9 fL (81.0-99.0); MEAN PLATELET VOLUME 10.6 fL (7.9-10.8); MONOCYTES # (AUTO) 0.7 10^3/uL (0.0-1.0); MONOCYTES % (AUTO) 6.7 %; NEUTROPHILS # (AUTO) 5.9 10^3/uL (1.5-6.6); NEUTROPHILS % (AUTO) 58.8 %; PLT - PLATELET COUNT 271 10^3/uL (130-450); RED BLOOD COUNT 4.54 10^6/uL (4.20-5.40); RED CELL DISTRIBUTION WIDTH 11.3 % (12.0-15.0)
[2022-09-04 14:25] LABS: BILIRUBIN,URINE NEGATIVE (NEGATIVE); GLUCOSE, URINE (UA) NEGATIVE (NEGATIVE); KETONES,URINE (UA) NEGATIVE (NEGATIVE); LEUKOCYTE ESTERASE, URINE NEGATIVE (NEGATIVE); NITRITE,URINE POSITIVE (NEGATIVE); OCCULT BLOOD,URINE TRACE-INTA (NEGATIVE); PROTEIN,URINE NEGATIVE (NEGATIVE); UROBILINOGEN,URINE 0.2 (NORMAL) E.U./dL (NORMAL)
[2022-09-04 14:26] LABS: CLARITY,URINE SL. CLOUDY (CLEAR)
[2022-09-04 14:27] LABS: HCG UR QUAL NEGATIVE
[2022-09-04 14:34] LABS: ACETAMINOPHEN < 10 ug/mL (10-30); ALBUMIN 4.3 g/dL (3.2-5.5); ALBUMIN/GLOBULIN RATIO 1.3 (1.0-2.2); ALKALINE PHOSPHATASE 64 IU/L (42-121); ALT ALANINE AMINOTRANSFERASE 20 IU/L (10-60); AST ASPARTATE AMINOTRANSFERASE 24 IU/L (10-42); BILIRUBIN,TOTAL 0.6 mg/dL (0.2-1.0); BUN - BLOOD UREA NITROGEN 13 mg/dL (6-20); CALCIUM 9.3 mg/dL (8.5-10.3); CARBON DIOXIDE - CO2 25 mmol/L (21-32); CHLORIDE 105 mmol/L (101-111); CREATININE 0.7 mg/dL (0.4-1.0); ETOH - ETHANOL < 5.0 mg/dL; GFR - MDRD 94 (>89); GLUCOSE 92 mg/dL (70-100); LIPASE 43 U/L (22-51); POTASSIUM 4.1 mmol/L (3.5-5.0); SALICYLATE < 6.0 mg/dL; SODIUM 139 mmol/L (135-145); TOTAL PROTEIN 7.6 g/dL (6.7-8.2)
[2022-09-04 14:37] LABS: BENZODIAZEPINES SCREEN, URINE POSITIVE (NEGATIVE); THC CANNABINOID SCREEN, URINE POSITIVE (NEGATIVE)
[2022-09-04 14:38] LABS: AMPHETAMINE SCREEN,URINE NEGATIVE (NEGATIVE); BARBITURATE SCREEN,UR NEGATIVE (NEGATIVE); COCAINE SCREEN URINE NEGATIVE (NEGATIVE); METHADONE SCREEN, URINE NEGATIVE (NEGATIVE); METHAMPHETAMINES SCREEN, URINE NEGATIVE (NEGATIVE); OPIATE SCREEN, URINE NEGATIVE (NEGATIVE); OXYCODONE SCREEN, URINE NEGATIVE (NEGATIVE); PROPOXYPHENE SCREEN, URINE NEGATIVE (NEGATIVE); TRICYCLIC ANTIDEPRESSANT,URINE NEGATIVE (NEGATIVE)
[2022-09-04 14:43] LABS: BACTERIA,URINE Many /HPF (None Seen); RBC,URINE 0-5 /HPF (0-5); SQUAMOUS EPITHELIAL CELL,UR FEW Squamous (<= Few)
[2022-09-04] MEDS ORDERED: cephALEXin 250 MG CAPSULE PO STA (16:57)
[2022-09-04 17:34] VITALS: BP 109/74
== END 2022-09-04 19:47 ==
LOC: ED 13:45
DX: R45.851 Suicidal ideations (principal); F32.A Depression, unspecified; N39.0 Urinary tract infection, site not specified; E05.90 Thyrotoxicosis, unspecified without thyrotoxic crisis or storm; F41.9 Anxiety disorder, unspecified; Z20.822 Contact with and (suspected) exposure to COVID-19; Z79.899 Other long term (current) drug therapy
CPT/HCPCS: 36415; 80053; 80306; 80307; 80320; 80329; 81001; 81025; 83690; 84443; 85025; 87077; 87086; 87181; 87635; 99285; A9270; 81003

== ENCOUNTER 2022-11-18 17:48 | Outpatient (CLI) | payer OTHER | END 2022-11-18 17:49 | disposition critical access hospital (66) | LOC: EMS 17:48 | DX: S09.90XA Unspecified injury of head, initial encounter (principal); R41.3 Other amnesia; W19.XXXA Unspecified fall, initial encounter; Y92.000 Kitchen of unspecified non-institutional (private) residence as the place of occurrence of the external cause | CPT/HCPCS: A0425; A0429 ==

== ENCOUNTER 2022-11-18 17:55 | Emergency (ER) | payer OTHER ==
--- NOTE | 2022-11-18 18:32 | ED Physician Documentation ---
PD HPI SEIZURE - Stated complaint Stated Complaint: SYNCOPE - Chief complaint Chief Complaint: Neuro - History obtained from History obtained from: Patient, EMS - History of Present Illness Injury during seizure: Fell, Head injury. No: Neck injury, Bit tongue, Shoulder dislocation Pain level max: 6 Pain level now: 5 - Additional information Additional information: Patient is a 37-year-old female with a longstanding history of seizures. She was at home today in the kitchen when she supposedly had a another seizure, fell striking her head. It was unwitnessed. She was postictal. Still having some confusion and complaining of a headache. No loss of bowel or bladder control. Has several seizures per week despite being on Keppra. No neck pain. Did not bite her tongue. No other injuries. 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 : None HEENT: None Psych: Depression, Anxiety Musculoskeletal: None Derm: None - Past Surgical History Past Surgical History: Yes General: Appendectomy, Other /CASH POSTING SPECIALIST: section, Hysterectomy - Present Medications Home Medications: Ambulatory Orders Medication Instructions Recorded Confirmed Gabapentin [Neurontin] 300 mg PO TID 09/19/20 09/04/22 diazePAM [Valium] 10 mg PO TID PRN 07/08/21 09/04/22 Propranolol [Inderal] 10 mg PO TID PRN 04/04/22 09/04/22 traZODone [Desyrel] 50 - 100 mg PO HS PRN 04/28/22 08/03/22 Levetiracetam [Keppra] 750 mg PO BID 08/03/22 09/04/22 Aripiprazole [Abilify] 1 mg PO DAILY 09/04/22 09/04/22 PARoxetine HCL [Paxil] 20 mg PO DAILY 09/04/22 09/04/22 cephALEXin [Keflex] 500 mg PO TID 5 Days #15 cap 09/04/22 - Allergies Allergies/Adverse Reactions: Allergies Allergy/AdvReac Type Severity Reaction Status Date / Time morphine Allergy Respiratory Verified 09/04/22 13:56 - Social History Does the pt smoke?: No Smoking Status: Never smoker Does the pt drink ETOH?: Yes Does the pt have substance abuse?: Yes - Immunizations Immunizations are current?: Yes - POLST Patient has POLST: No PD ED PE NORMAL - Vitals Vital signs reviewed: Yes - General General: Alert and oriented X 3, No acute distress - HEENT HEENT: Atraumatic, PERRL, Ears normal, Moist mucous membranes, Pharynx benign, Dentition benign - Neck Neck: Supple, no meningeal sign, No bony TTP - Cardiac Cardiac: RRR, Strong equal pulses - Respiratory Respiratory: No respiratory distress, Clear bilaterally - Abdomen Abdomen: Soft, Non tender, Non distended - Back Back: No spinal TTP - Derm Derm: Warm and dry - Extremities Extremities: No edema, No calf tenderness / cord - Neuro Neuro: Alert and oriented X 3, operations business partner 2-12 intact, No motor deficit, No sensory deficit, Normal speech Eye Opening: Spontaneous Motor: Obeys Commands Verbal: Oriented GCS Score: 15 - Psych Psych: Normal mood, Normal affect Results - Vitals Vitals: Vital Signs - 24 hr 11/18/22 11/18/22 17:59 20:04 Temperature 37.3 C 36.8 C Heart Rate 73 80 Respiratory 18 16 Rate Blood Pressure 102/74 130/80 O2 Saturation 98 97 Oxygen O2 Source Room air - EKG (time done) 1758 EKG releavant findings:: EKG personally interpreted by author of this note. Relevant findings are: Rate: Rate (enter#) (68) Rhythm: NSR Walker: Normal Intervals: Normal [place] QRS: Normal Ischemia: Non specific changes (flat t waves) - Labs Labs: Laboratory Tests 11/18/22 11/18/22 11/18/22 18:40 18:40 18:40 WBC 6.7 RBC 4.35 Hgb 13.3 Hct 40.2 MCV 92.4 MCH 30.6 MCHC 33.1 RDW 11.5 L Plt Count 207 MPV 9.9 Neut # (Auto) 3.3 Lymph # (Auto) 2.2 [place] # (Auto) 0.5 Eos # (Auto) 0.5 Baso # (Auto) 0.1 Absolute Nucleated RBC 0.00 Nucleated RBC % 0.0 Sodium 137 Potassium 3.8 Chloride 103 Carbon Dioxide 31 Anion Gap 3.0 L BUN 8 Creatinine 0.9 Estimated GFR (MDRD) 70 L Glucose 90 Calcium 9.5 Magnesium 1.8 Total Bilirubin 0.2 AST 23 ALT 25 Alkaline Phosphatase 60 Total Creatine Kinase 85 Total Protein 6.8 Albumin 4.1 Globulin 2.7 Albumin/Globulin Ratio 1.5 Lipase 39 TSH 1.08 Salicylates < 1.5 Acetaminophen < 0.1 Ethyl Alcohol < 10.0 - Rads (name of study) CT head Relevant Findings:: Final report received, See rad report PD Medical Decision Making - ED course Complexity details: reviewed results, re-evaluated patient, considered differential, d/w patient, d/w family ED course: 37-year-old female with a known seizure disorder presents to the emergency department with recurrent seizure. She has seizures frequently. She did strike her head when she had the seizure therefore head CT was performed as she was having significant pain. Pain improved with Toradol. Patient is back to her normal baseline. No significant lab abnormalities. Family is comfortable taking her home. No other injuries. She will follow-up with her neurologist for further care. Patient counseled regarding signs and symptoms for which I believe and urgent re-evaluation would be necessary. Patient with good understanding of and agreement to plan and is comfortable going home at this time This document was made in part using voice recognition software. While efforts are made to proofread this document, sound alike and grammatical errors may occur. Departure - Departure Disposition: 01 Home, Self Care Clinical Impression: Recurrent seizures Closed head injury Qualifiers: Encounter type: initial encounter Qualified Code(s): S09.90XA - Unspecified injury of head, initial encounter Condition: Good Instructions: ED Seizure Recurrent Follow-Up: your,doctor in 1 week [Other] Comments: Please continue your current medications at home. Please follow-up with your doctor for further care. Please return if you worsen. Your head CT and laboratory testing did not show any acute abnormalities today. Forms: PCP List Discharge Date/Time: 11/18/22 20:07
[2022-11-18 18:46] LABS: BASOPHILS # (AUTO) 0.1 10^3/uL (0.0-0.1); BASOPHILS % (AUTO) 1.2 %; EOSINOPHILS # (AUTO) 0.5 10^3/uL (0.0-0.7); HCT - HEMATOCRIT 40.2 % (37.0-47.0); HGB - HEMOGLOBIN 13.3 g/dL (12.0-16.0); LYMPHOCYTES # (AUTO) 2.2 10^3/uL (1.5-3.5); MEAN CORPUSCULAR HEMOGLOBIN 30.6 pg (27.0-31.0); MEAN CORPUSCULAR HGB CONC 33.1 g/dL (32.0-36.0); MEAN CORPUSCULAR VOLUME 92.4 fL (81.0-99.0); MEAN PLATELET VOLUME 9.9 fL (7.9-10.8); MONOCYTES # (AUTO) 0.5 10^3/uL (0.0-1.0); NEUTROPHILS # (AUTO) 3.3 10^3/uL (1.5-6.6); NEUTROPHILS % (AUTO) 49.5 %; PLT - PLATELET COUNT 207 10^3/uL (130-450); RED BLOOD COUNT 4.35 10^6/uL (4.20-5.40); RED CELL DISTRIBUTION WIDTH 11.5 % (12.0-15.0); WHITE BLOOD COUNT 6.7 x10^3/uL (4.8-10.8)
--- NOTE | 2022-11-18 18:59 | CT Report ---
PROCEDURE: HEAD WO INDICATIONS: seizure, head injury TECHNIQUE: Noncontrast 4.5 mm thick angled axial sections acquired from the foramen magnum to the vertex. For r adiation dose reduction, the following was used: automated exposure control, adjustment of mA and/or kV according to patient size. COMPARISON: 04/28/2022, 10/02/2021 FINDINGS: Image quality: There is streak artifact seen through the skull base. CSF spaces: Basal cisterns are patent. No extra-axial fluid collections. Ventricles are normal in size and shape. Brain: No midline shift. No intracranial masses or hemorrhage. Black-white matter interface is norm al. Skull and face: Calvarium and visualized facial bones are intact, without suspicious lesions. Sinuses: Visualized sinuses and mastoids are clear. IMPRESSION: Unremarkable noncontrast head CT, without an acute abnormality seen. Reviewed by: Jorge Lam MD on 11/18/2022 5:58 PM AKCHRISTOPHER Approved by: Jorge Lam MD on 11/18/2022 5:58 PM AKCHRISTOPHER Station ID: [id number]
[2022-11-18 19:00] LABS: ALBUMIN 4.1 g/dL (3.2-5.5); ALBUMIN/GLOBULIN RATIO 1.5 (1.0-2.2); ALKALINE PHOSPHATASE 60 IU/L (42-121); ALT ALANINE AMINOTRANSFERASE 25 IU/L (10-60); AST ASPARTATE AMINOTRANSFERASE 23 IU/L (10-42); BILIRUBIN,TOTAL 0.2 mg/dL (0.2-1.0); BUN - BLOOD UREA NITROGEN 8 mg/dL (6-20); CALCIUM 9.5 mg/dL (8.5-10.3); CARBON DIOXIDE - CO2 31 mmol/L (21-32); CHLORIDE 103 mmol/L (101-111); CK- CREATINE KINASE 85 IU/L (30-223); CREATININE 0.9 mg/dL (0.6-1.3); ETOH - ETHANOL < 10.0 mg/dL; GFR - MDRD 70 (>89); GLUCOSE 90 mg/dL (74-104); LIPASE 39 U/L (11-82); MAGNESIUM 1.8 mg/dL (1.7-2.3); POTASSIUM 3.8 mmol/L (3.5-4.5); SODIUM 137 mmol/L (135-145); TOTAL PROTEIN 6.8 g/dL (6.4-8.9)
[2022-11-18 19:02] LABS: ACETAMINOPHEN < 0.1 ug/mL; SALICYLATE < 1.5 mg/dL
[2022-11-18] MEDS: KETOROLAC 30 MG/ML VIAL IVP STA (19:58)
[2022-11-18 20:11] VITALS: BP 130/80
== END 2022-11-18 20:07 | disposition home or self-care (01) ==
LOC: EDUNIT# → ED 17:55
DX: S09.90XA Unspecified injury of head, initial encounter (principal); W19.XXXA Unspecified fall, initial encounter; Y92.009 Unspecified place in unspecified non-institutional (private) residence as the place of occurrence of the external cause; G40.909 Epilepsy, unspecified, not intractable, without status epilepticus; E05.90 Thyrotoxicosis, unspecified without thyrotoxic crisis or storm; Z79.899 Other long term (current) drug therapy
CPT/HCPCS: 36415; 80053; 80307; 80320; 80329; 82550; 83690; 83735; 84443; 85025; 93005; 96374; 99283